=== PATIENT | female | born 1955 | race Caucasian/White ===

== ENCOUNTER → 2018-05-06 10:27 | Outpatient (CLI) | payer OTHER, SELFPAY ==
[2018-05-06 11:32] LABS: Appearance Urine UA CLEAR; Bilirubin Urine UA 1+ (NEGATIVE); Color Urine UA YELLOW; Glucose Urine UA NEGATIVE (Normal); Ketones Urine UA NEGATIVE (NEGATIVE); Leukocyte Esterase Urine UA NEGATIVE (NEGATIVE); Nitrite Urine UA Negative (Negative); Occult Blood Urine UA NEGATIVE (Negative); Protein Urine UA NEGATIVE (Negative); Urobilinogen Urine UA 0.2 E.U./dL (0.2)
[2018-05-06 11:41] LABS: Add Manual Diff / Slide Review NO; Basophils Percent Auto 0.7 % (0-2); Eosinophils Percent Auto 1.3 % (2-4); Hemoglobin 13.6 g/dL (12.0-16.0); Mean Corpuscular HGB Conc 33.3 % (30-36); Mean Corpuscular Hemoglobin 34.5 PG (26-34); Mean Corpuscular Volume 103.6 fL (80-100); Neutrophils Absolute Auto 5100 /uL (3000-5900); Platelet Count 384 X10^3/uL (150-400); Red Blood Cell Count 3.95 X10^6/uL (4.0-5.2)
[2018-05-06 11:43] LABS: Ictotest Urine Negative (Negative)
[2018-05-06 11:54] LABS: Alanine Aminotransferase 30 IU/L (9-52); Albumin 4.4 g/dL (3.5-5.0); Albumin Globulin Ratio 1.8 (1.0-2.8); Alkaline Phosphatase 99 U/L (38-126); Aspartate Aminotransferase 26 IU/L (14-36); Bilirubin Total 0.8 mg/dL (0.2-1.3); Blood Urea Nitrogen 14 mg/dL (7-17); Calcium 9.5 mg/dL (8.4-10.2); Carbon Dioxide 26 mmol/L (22-32); Chloride 106 mmol/L (98-107); Cholesterol 199 mg/dL (140-199); Estimated Glomerular Filt Rate > 60.0 mL/min (>60); Globulin 2.4 g/dL (1.7-4.1); Glucose 95 mg/dL (80-110); HDL Cholesterol 77 mg/dL (40-60); HEMOLYSIS < 15 (0-50); LDL Cholesterol Calculated 89 mg/dL (<100); Potassium 5.3 mmol/L (3.4-5.1); Sodium 142 mmol/L (137-145); Total Protein 6.8 g/dL (6.3-8.2); Triglycerides 164 mg/dL (35-150)
[2018-05-06 12:20] LABS: Vitamin D 25 Hydroxy (D3) 26.1 ng/mL (30.0-100.0)
[2018-05-06 12:41] LABS: Vitamin B12 382 pg/mL (239-931)
== END ==
PROVIDERS: PCP Family Medicine; Visit Provider Family Medicine
DX: Z51.81 Encounter for therapeutic drug level monitoring (principal); Z98.84 Bariatric surgery status
CPT/HCPCS: 36415; 80053; 80061; 81003; 82306; 82607; 84443; 85025

== ENCOUNTER → 2018-09-03 11:06 | Outpatient (CLI) | payer OTHER, SELFPAY ==
--- NOTE | 2018-09-03 11:08 | DI.RAD.S_ITS ---
PROCEDURE: XR HIP W PEL IF DONE LT MIN 4V INDICATIONS: bilateral hip pain TECHNIQUE: AP pelvis with lateral view(s) of left and right hip(s). COMPARISON: None. FINDINGS: Bones: No fractures or dislocations. Pelvic ring appears intact. There is a 1 cm sclerotic focus projecting to the left iliac bone. There is moderate right and mild left hip joint degeneration. Mild symmetric sacroiliac joint degeneration. No sacroiliac joint ankylosis. Pseudoarthrosis of the enlarged left L5 spinous process with sacrum. Soft tissues: The visualized bowel gas pattern is normal. No suspicious soft tissue calcifications. IMPRESSION: 1. Degenerative joint disease in the hips bilaterally, moderate on the right and mild on the left. 2. Mild symmetric sacroiliac joint degeneration. 3. Pseudoarthrosis of the left transverse process and sacrum. Dictated by: Jenna June M.D. on 09/03/2018 at 12:58 Approved by: Jenna June M.D. on 09/03/2018 at 13:01
[2018-09-03 11:57] LABS: Appearance Urine UA CLEAR; Bilirubin Urine UA 3+ (NEGATIVE); Color Urine UA YELLOW; Glucose Urine UA NEGATIVE (Normal); Ketones Urine UA NEGATIVE (NEGATIVE); Leukocyte Esterase Urine UA NEGATIVE (NEGATIVE); Nitrite Urine UA NEGATIVE (Negative); Occult Blood Urine UA NEGATIVE (Negative); Protein Urine UA NEGATIVE (Negative); Urobilinogen Urine UA 0.2 E.U./dL (0.2); pH Urine UA 5.5 (4.5-8.0)
[2018-09-03 12:00] LABS: Add Manual Diff / Slide Review NO; Basophils Percent Auto 0.4 % (0-2); Eosinophils Percent Auto 3.3 % (2-4); Hematocrit 40.3 % (36-46); Hemoglobin 13.4 g/dL (12.0-16.0); Lymphocytes Percent Auto 31.1 % (25-40); Mean Corpuscular HGB Conc 33.3 % (30-36); Mean Corpuscular Hemoglobin 33.9 PG (26-34); Mean Corpuscular Volume 101.7 fL (80-100); Monocytes Percent Auto 6.2 % (3-14); Neutrophils Absolute Auto 4300 /uL (3000-5900); Platelet Count 381 X10^3/uL (150-400); Red Blood Cell Count 3.96 X10^6/uL (4.0-5.2); Red Cell Distribution Width 13.1 % (11.6-14.8); White Blood Cell Count 7.3 X10^3/uL (4.5-11.0)
[2018-09-03 12:12] LABS: Ictotest Urine Positive (Negative)
[2018-09-03 13:21] LABS: Alanine Aminotransferase 32 IU/L (9-52); Albumin 4.2 g/dL (3.5-5.0); Albumin Globulin Ratio 1.7 (1.0-2.8); Alkaline Phosphatase 95 U/L (38-126); Aspartate Aminotransferase 21 IU/L (14-36); BUN Creatinine Ratio 23.3 (6-22); Bilirubin Total 0.4 mg/dL (0.2-1.3); Blood Urea Nitrogen 14 mg/dL (7-17); Calcium 9.5 mg/dL (8.4-10.2); Carbon Dioxide 24 mmol/L (22-32); Chloride 109 mmol/L (98-107); Cholesterol 166 mg/dL (140-199); Estimated Glomerular Filt Rate > 60.0 mL/min (>60); Globulin 2.5 g/dL (1.7-4.1); Glucose 88 mg/dL (80-110); HDL Cholesterol 51 mg/dL (40-60); HEMOLYSIS < 15 (0-50); LDL Cholesterol Calculated 82 mg/dL (<100); Sodium 145 mmol/L (137-145); Total Protein 6.7 g/dL (6.3-8.2); Triglycerides 165 mg/dL (35-150)
[2018-09-03 13:52] LABS: Thyroid Stimulating Hormone 0.77 uIU/mL (0.47-4.68)
== END ==
PROVIDERS: PCP Family Medicine; Visit Provider Family Medicine
DX: M25.552 Pain in left hip (principal); M25.551 Pain in right hip; M47.818 Spondylosis without myelopathy or radiculopathy, sacral and sacrococcygeal region; G47.00 Insomnia, unspecified; F32.9 Major depressive disorder, single episode, unspecified; F10.21 Alcohol dependence, in remission; Z51.81 Encounter for therapeutic drug level monitoring
CPT/HCPCS: 36415; 73522; 80053; 80061; 81003; 84443; 85025

== ENCOUNTER → 2019-01-18 12:37 | Outpatient (CLI) | payer OTHER, SELFPAY ==
--- NOTE | 2019-01-18 | DI.MG.S_ITS ---
BILATERAL DIGITAL SCREENING MAMMOGRAM 3D/2D WITH CAD: 01/18/2019 CLINICAL: Routine screening. Comparison is made to exams dated: 01/06/2018 mammogram, 10/24/2016 mammogram, and 10/23/2015 mammogram - [facility]. The tissue of both breasts is predominantly fatty. Current study was also evaluated with a Computer Aided Detection (CAD) system. No significant masses, calcifications, or other findings are seen in either breast. There has been no significant interval change. IMPRESSION: NEGATIVE There is no mammographic evidence of malignancy. A 1 year screening mammogram is recommended. This exam was interpreted at Station ID: [id number]. NOTE: For mammograms, a report in lay terms will be sent to the patient. Approximately 15% of breast malignancies will not be visualized mammographically. In the management of a palpable breast mass, a negative mammogram must not discourage biopsy of a clinically suspicious lesion. Electronically Signed By: Rosa cedillo/kylie:01/18/2019 15:20:34 letter sent: Normal Exam ACR BI-RADS Category 1: Negative [id number]
== END ==
PROVIDERS: PCP Family Medicine; Visit Provider Family Medicine
DX: Z12.31 Encounter for screening mammogram for malignant neoplasm of breast (principal)
CPT/HCPCS: 77063; 77067

== ENCOUNTER → 2019-11-12 16:34 | Outpatient (CLI) | payer MEDICARE, OTHER, SELFPAY ==
--- NOTE | 2019-11-12 16:35 | DI.MRI.S_ITS ---
PROCEDURE: MR LUMBAR SPINE WO CON INDICATIONS: RADICULOPATHY TECHNIQUE: Noncontrast sagittal T1 spin echo and T2 fast echo, sagittal STIR, axial T1 and T2 fast spin echo through the lumbar spine. In cases with scoliosis, additional coronal T2 fast spin echo may be performed. COMPARISON: None. FINDINGS: Image quality: Excellent. Alignment and Curvature: There is normal bony alignment. Bone Marrow: Marrow is of normal overall signal. No acute vertebral body compression fractures. Spinal Cord: Conus medullaris terminates at the L1 level. Visualized cord demonstrates normal signal and size. Paraspinous Soft Tissues: No paravertebral masses. T12-L1: The disc height and disc signal is relatively well-preserved. Mild to moderate disc bulge is seen. Mild facet there is mild left-sided and no significant right-sided neural foraminal narrowing seen. The central canal is widely patent. L1-L2: Moderate loss of disc height is seen. Loss of disc signal is seen. Bridging endplate osteophytes are seen. Moderate generalized disc bulge is seen. Mild facet joint hypertrophy is seen. Moderate bilateral neural foraminal narrowing is seen, left worse than right. Mild central canal narrowing is seen. L2-L3: The disc height and disk signal are well-preserved. Mild generalized disc bulge is seen. Mild facet joint hypertrophy is seen. Moderate bilateral neural foraminal narrowing is seen, left worse than right. Minimal central canal narrowing is seen. L3-L4: The disc height is well-preserved. Loss of disc signal is seen at this level. There is a focal annular fissure seen posteriorly. Mild generalized disc bulge is seen. Ztfv-jr-gkmqmndo bilateral neural foraminal narrowing is seen. No significant central canal narrowing is seen. L4-L5: Moderate to severe loss of disc height and disc signal are seen at this level. Moderate disc bulge is seen, which is eccentric to the right. Moderate bilateral neural foraminal narrowing is seen, right worse than left. Bridging endplate osteophytes are seen. No central canal narrowing is seen. L5-S1: Moderate loss of disc height is seen. Loss of disc signal is seen. Moderate disc bulge is seen, with a central/right disc extrusion, with an associated annular fissure. There is associated mass effect seen upon the regional nerve roots, although most prominently upon the transiting right S1 nerve root. There is moderate right-sided and mild left-sided facet hypertrophy seen. There is moderate right-sided and no significant left-sided foraminal narrowing seen. Moderate central canal narrowing is seen. 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 IMPRESSION: Lumbar spine degenerative changes are seen, which are most prominent inferiorly. At L5-S1, there is a central/right disc extrusion, with associated regional mass effect, including upon the transiting right S1 nerve root. Several levels of moderate neural foraminal narrowing can be seen. Dictated by: Silverio Lake M.D. on 11/15/2019 at 8:27 Approved by: Silverio Lake M.D. on 11/15/2019 at 8:33
== END ==
PROVIDERS: PCP Family Medicine; Referring Provider Internal Medicine; Visit Provider Internal Medicine
DX: M54.5 Low back pain (principal); M21.379 Foot drop, unspecified foot; M51.16 Intervertebral disc disorders with radiculopathy, lumbar region; M51.17 Intervertebral disc disorders with radiculopathy, lumbosacral region; M48.061 Spinal stenosis, lumbar region without neurogenic claudication; M48.07 Spinal stenosis, lumbosacral region
CPT/HCPCS: 72148

== ENCOUNTER → 2019-11-16 07:55 | Outpatient (CLI) | payer MEDICARE, OTHER, SELFPAY ==
[2019-11-16 08:40] LABS: Add Manual Diff / Slide Review NO; Basophils Absolute Auto 100 /uL (0-100); Basophils Percent Auto 1.1 % (0-2); Eosinophils Absolute Auto 100 /uL (0-450); Eosinophils Percent Auto 1.4 % (2-4); Hematocrit 41.3 % (36-46); Hemoglobin 14.1 g/dL (12.0-16.0); Lymphocytes Absolute Auto 2300 /uL (1100-4500); Lymphocytes Percent Auto 32.8 % (25-40); Mean Corpuscular HGB Conc 34.1 % (30-36); Mean Corpuscular Hemoglobin 33.4 PG (26-34); Monocytes Absolute Auto 500 /uL (0-900); Monocytes Percent Auto 6.6 % (3-14); Neutrophils Absolute Auto 4000 /uL (1500-7000); Neutrophils Percent Auto 58.1 % (50-75); Platelet Count 360 X10^3/uL (150-400); Red Blood Cell Count 4.21 X10^6/uL (4.0-5.2); Red Cell Distribution Width 12.3 % (11.6-14.8); White Blood Cell Count 6.9 X10^3/uL (4.5-11.0)
[2019-11-16 08:49] LABS: Alanine Aminotransferase 18 IU/L (<35); Albumin 4.2 g/dL (3.5-5.0); Albumin Globulin Ratio 1.4 (1.0-2.8); Alkaline Phosphatase 91 U/L (38-126); Aspartate Aminotransferase 22 IU/L (14-36); BUN Creatinine Ratio 16.7 (6-22); Bilirubin Total 0.6 mg/dL (0.2-1.3); Blood Urea Nitrogen 10 mg/dL (7-17); Calcium 9.5 mg/dL (8.4-10.2); Carbon Dioxide 27 mmol/L (22-32); Chloride 107 mmol/L (98-107); Cholesterol 192 mg/dL (140-199); Estimated Glomerular Filt Rate > 60.0 mL/min (>60); Globulin 2.9 g/dL (1.7-4.1); Glucose 107 mg/dL (80-110); HDL Cholesterol 48 mg/dL (40-60); HEMOLYSIS < 15 (0-50); LDL Cholesterol Calculated 121 mg/dL (<100); Potassium 4.4 mmol/L (3.4-5.1); Sodium 142 mmol/L (137-145); Total Protein 7.1 g/dL (6.3-8.2); Triglycerides 117 mg/dL (35-150)
[2019-11-16 09:04] LABS: HEMOLYSIS < 15 (0-50); Iron 110 ug/dL (37-170)
[2019-11-16 09:16] LABS: Percent Iron Saturation 32 % (15-50); Total Iron Binding Capacity 349 ug/dL (265-497); Transferrin 270 mg/dL (206-381)
[2019-11-16 09:20] LABS: Ferritin 18 ng/mL (11-264)
[2019-11-16 09:22] LABS: Vitamin D 25 Hydroxy (D3) 28.9 ng/mL (30.0-100.0)
[2019-11-16 09:37] LABS: TSH w/ Reflex to FT4 1.77 uIU/mL (0.47-4.68)
[2019-11-16 09:51] LABS: Folate > 20.0 ng/mL (2.76-20.0); Vitamin B12 345 pg/mL (239-931)
== END ==
PROVIDERS: PCP Internal Medicine; Referring Provider Internal Medicine; Visit Provider Internal Medicine
DX: I10 Essential (primary) hypertension (principal); F41.1 Generalized anxiety disorder; K21.9 Gastro-esophageal reflux disease without esophagitis; Z98.84 Bariatric surgery status; R79.89 Other specified abnormal findings of blood chemistry
CPT/HCPCS: 36415; 80053; 80061; 82306; 82607; 82728; 82746; 83540; 83550; 84443; 85025

== ENCOUNTER → 2019-12-01 12:33 | Outpatient (CLI) | payer MEDICARE, OTHER, SELFPAY ==
[2019-12-01 13:05] LABS: Add Manual Diff / Slide Review NO; Basophils Absolute Auto 100 /uL (0-100); Basophils Percent Auto 0.5 % (0-2); Eosinophils Absolute Auto 100 /uL (0-450); Eosinophils Percent Auto 1.4 % (2-4); Hematocrit 42.2 % (36-46); Hemoglobin 14.3 g/dL (12.0-16.0); Lymphocytes Absolute Auto 2400 /uL (1100-4500); Lymphocytes Percent Auto 24.4 % (25-40); Mean Corpuscular HGB Conc 33.9 % (30-36); Mean Corpuscular Hemoglobin 33.2 PG (26-34); Mean Corpuscular Volume 98.1 fL (80-100); Monocytes Absolute Auto 500 /uL (0-900); Monocytes Percent Auto 5.1 % (3-14); Neutrophils Absolute Auto 6800 /uL (1500-7000); Neutrophils Percent Auto 68.6 % (50-75); Platelet Count 380 X10^3/uL (150-400); Red Blood Cell Count 4.31 X10^6/uL (4.0-5.2); Red Cell Distribution Width 12.4 % (11.6-14.8); White Blood Cell Count 9.8 X10^3/uL (4.5-11.0)
[2019-12-01 13:26] LABS: BUN Creatinine Ratio 15.7 (6-22); Blood Urea Nitrogen 11 mg/dL (7-17); Calcium 9.9 mg/dL (8.4-10.2); Carbon Dioxide 26 mmol/L (22-32); Chloride 106 mmol/L (98-107); Estimated Glomerular Filt Rate > 60.0 mL/min (>60); Glucose 109 mg/dL (80-110); HEMOLYSIS < 15 (0-50); Potassium 4.4 mmol/L (3.4-5.1); Sodium 142 mmol/L (137-145)
[2019-12-01 13:29] LABS: Hemoglobin A1C% w Est Avg Glu 5.3 % (4.0-6.0)
== END ==
PROVIDERS: PCP Internal Medicine; Referring Provider Orthopaedic Surgery Adult Reconstructive Orthopaedic Surgery; Visit Provider Orthopaedic Surgery Adult Reconstructive Orthopaedic Surgery
DX: Z01.818 Encounter for other preprocedural examination (principal); Z01.812 Encounter for preprocedural laboratory examination; R73.9 Hyperglycemia, unspecified
CPT/HCPCS: 36415; 80048; 83036; 85025; 93005; 93010

== ENCOUNTER → 2020-03-09 12:38 | Outpatient (CLI) | payer MEDICARE, OTHER, SELFPAY ==
--- NOTE | 2020-03-09 | DI.MG.S_ITS ---
BILATERAL DIGITAL SCREENING MAMMOGRAM 3D/2D WITH CAD: 03/09/2020 CLINICAL: Routine screening. Comparison is made to exams dated: 01/18/2019 mammogram, 01/06/2018 mammogram, and 10/24/2016 mammogram - [facility]. There are scattered fibroglandular elements in both breasts. Current study was also evaluated with a Computer Aided Detection (CAD) system. No significant masses, calcifications, or other findings are seen in either breast. There has been no significant interval change. IMPRESSION: NEGATIVE There is no mammographic evidence of malignancy. A 1 year screening mammogram is recommended. This exam was interpreted at Station ID: [id number]. NOTE: For mammograms, a report in lay terms will be sent to the patient. Approximately 15% of breast malignancies will not be visualized mammographically. In the management of a palpable breast mass, a negative mammogram must not discourage biopsy of a clinically suspicious lesion. Electronically Signed By: Shan cano/kylie:03/09/2020 13:17:40 letter sent: Normal Exam ACR BI-RADS Category 1: Negative [id number]
== END ==
PROVIDERS: PCP Internal Medicine; Referring Provider Internal Medicine; Visit Provider Internal Medicine
DX: Z12.31 Encounter for screening mammogram for malignant neoplasm of breast (principal)
CPT/HCPCS: 77063; 77067

== ENCOUNTER 2020-10-31 12:00 | Observation (INO) | payer MEDICARE, OTHER, SELFPAY ==
[2020-10-31] VITALS (16 sets, daily range): BP systolic 145–194; BP diastolic 75–105; PULSE 75–106; RESP 9–55; TEMP 36.7–36.8; O2SAT 95–99; BMI 30.2
--- NOTE | 2020-10-31 12:24 | ED.GENADULT ---
HPI - General Adult General Chief complaint: Neuro Symptoms/Deficit Stated complaint: migraine/stroke Time Seen by Provider: 10/31/20 12:23 Source: patient Mode of arrival: Ambulatory Limitations: no limitations History of Present Illness HPI narrative: 65-year-old female with a history of migraines who states she has not had a migraine in quite some time who states that a couple days ago she started having a headache which she thought was going to be 1 of her typical migraines. She tried some home medications without any improvement. The then yesterday she started having which she describes as word-finding issues. She states the symptoms have been consistent since yesterday. No nausea or vomiting. Has not had anything like with the word-finding issues in the past. Related Data Home Medications Medication Instructions Recorded Confirmed kpygltzl-rjd-jvzlb ac 400 1 tab PO DAILY tab 05/05/19 10/31/20 mcg-calcium carb 500 mg-vit K1 20 mcg tablet omeprazole 20 mg PO BID 12/09/19 10/31/20 zolpidem 5 mg PO BEDTIME PRN 10/31/20 10/31/20 Allergies Allergy/AdvReac Type Severity Reaction Status Date / Time adhesive tape Allergy Severe Itching Verified 10/31/20 12:24 w/prolonged use morphine [MORPHINE] Allergy Mild Itching-pt Verified 10/31/20 12:24 states can take if needed erythromycin base AdvReac Severe Stomach Verified 10/31/20 12:24 [ERYTHROMYCIN BASE] cramps Review of Systems Constitutional Constitutional: Denies fatigue, Denies fever(s), Denies frequent falls and Reports headache(s) Eyes Eyes: Denies change in vision ENT Ears, Nose, Mouth, and Throat: Denies change in voice, Denies vertigo, Denies dizziness, Reports headache(s), Denies hoarseness, Denies disequilibrium, Denies sinus pain and Denies sore throat Cardiovascular Cardiovascular: Denies chest pain and Denies dyspnea Respiratory Respiratory: Denies dyspnea Gastrointestinal Gastrointestinal: Denies abdominal pain, Denies nausea and Denies vomiting Genitourinary Genitourinary: Denies dysuria Genitourinary: Denies dysuria Musculoskeletal Musculoskeletal: Denies arthralgias and Denies myalgias Integumentary/Breasts Skin/Breast: Denies lesions and Denies rash Neurologic Neurologic: Denies abnormal movements, Reports abnormal speech, Denies confusion, Denies vertigo, Denies dizziness, Denies frequent falls, Reports headache(s) and Denies disequilibrium Psychiatric Psychiatric: Denies confusion Endocrine Endocrine: Denies fatigue Hematologic/Lymphatic Hematologic/Lymphatic: Denies easy bleeding and Denies easy bruising Allergic/Immunologic Allergic/Immunologic: Denies urticaria Patient History Medical History Ankle pain (2015) Anxiety Chickenpox (1957) Colon polyps (2009) Depression Eating disorder Fractures GERD (gastroesophageal reflux disease) (2000) Heavy menstrual period (1979) Hemorrhoids (1980) Measles (1957) Mumps (1958) Numbness and tingling Painful menstrual periods PTSD (post-traumatic stress disorder) (2014) Seasonal allergies Substance abuse (2015) Surgical History (Updated 12/09/19 @ 09:17 by Catherine Loaiza RN) History of back surgery (1989) History of Vaughn-en-Y gastric bypass (2008) History of surgery on arm (~2008) History of tonsillectomy and adenoidectomy (1959) Hx of cholecystectomy (~2012) Hx of hysterectomy (1981) Hx of knee surgery (2015) Hx of varicose veins (~1994) S/P epidural steroid injection (12/02/19) Family History (Updated 05/04/18 @ 14:42 by Deysi Serrano LPN) Father Heart failure Hypertension Hyperlipidemia Mental health problem Substance abuse Depression Mother PAD (peripheral artery disease) Alzheimer's disease Hypertension Hyperlipidemia Mental health problem Osteoporosis Brother No problems noted. Grandfather Heart disease Grandmother Depression Grandfather Depression Grandmother Stroke Family/Other Depression ADHD (attention deficit hyperactivity disorder) Aspergers' syndrome Family/Other Anxiety Social History household members: spouse Smoking Status: Former smoker Tobacco: How many years used: 25 alcohol intake: former Smoking Status: Former smoker Substance Use Type: does not use Exam Initial Vital Signs Initial Vital Signs: Vital Signs Pulse Rate 106 H 10/31/20 12:18 Pulse Oximetry 98 10/31/20 12:18 Const General: cooperative and healthy appearing Limitations: mental status not altered HENMT Head: normal to inspection and normocephalic Eyes Pupils: PERRL EOM: EOM intact bilaterally Resp Effort & Inspection: normal respiratory effort Auscultation: clear to auscultation bilaterally Cardio Rate: regular rate Rhythm: regular rhythm GI Inspection: non-distended Palpation: soft Skin Lesions: no lesions Rashes: no rashes Neuro General: patient alert, patient awake and patient oriented x3 Cranial Nerves: CN's II-XI intact bilaterally Cognition: normal cognition Speech: speech normal Gait: normal gait Sensory Exam: no sensory deficits noted Coordination: ktkqld-kt-lxze test normal Extrem General: normal to inspection and capillary refill normal Psych Appearance: grossly normal and well kempt Scores GCS Radha coma scale eye opening: Spontaneous [place] coma scale verbal response: Orientated [place] coma scale motor response: Obey commands [place] coma scale total score: 15 NIH Stroke Scale Level of Conciousness: Alert, keenly responsive Ask month/age: Answers both questions correctly. Open/close eyes, close hand: Performs both tasks correctly Best gaze horizontal: Normal Visual ragland: No visual loss Facial palsy: Normal symetrical movement Left arm drift: No drift for full 10 sec Right arm drift: No drift for full 10 sec Left leg drift: Drifts down, not to bed Right leg drift: No drift for full 5 sec Limb ataxia: Absent Sensory on face/arms/legs: Normal, no sensory loss Best language: No aphasia, normal Dysarthria: Normal Extinction or inattention: No abnormality Total NIH Stroke scale score: 1 Course Orders Ordered: ED Orders 10/31/20 12:24 CT head/brain wo con Stat 10/31/20 12:25 EKG-12 Lead Stat 10/31/20 12:40 Complete Blood Count AUTO DIFF Stat Comprehensive Metabolic Panel Stat Ethanol (ETOH) Stat Lipase Stat Partial Thromboplastin Time Stat Prothrombin Time INR Stat Salicylate Stat Thyroid Stimulating Hormone Stat Troponin & CK Cardiac Panel Stat 10/31/20 12:56 COVID19 Stat Acetaminophen (Acetaminophen 325 Mg Tablet) 650 mg PO Q6HR PRN PRN Reason: Fever/Mild Pain (1-3) Last Admin: 10/31/20 18:02 Dose: 650 mg Documented by: GPEREZ Artificial Tears (Polyvinyl Alcohol Drops) 1 drops EYE-BOTH PRN PRN PRN Reason: Dry Eye(s) Aspirin (Aspirin Ec 81 Mg Tablet) 81 mg PO DAILY MAXIMINO Atorvastatin Calcium (Atorvastatin 20 Mg Tablet) 20 mg PO BEDTIME MAXIMINO Enoxaparin Sodium (Enoxaparin 40 Mg/0.4 Ml Syringe) 40 mg SUBCUT DAILY [facility] Magnesium Hydroxide (Magnesium Hydroxide 30 Ml Udc) 30 ml PO DAILY PRN PRN Reason: Constipation Naloxone HCl (Naloxone 0.4 Mg/Ml Vial) 0.2 mg IV Q2MIN PRN PRN Reason: Opiate Reversal Ondansetron HCl (Ondansetron 4 Mg Odt) 4 mg PO Q8HR PRN PRN Reason: Nausea And Vomiting Pantoprazole Sodium (Pantoprazole 20 Mg Tablet) 20 mg PO BID MAXIMINO Zolpidem Tartrate (Zolpidem 5 Mg Tablet) 5 mg PO BEDTIME PRN PRN Reason: Insomnia Discontinued Medications Aspirin (Aspirin 81 Mg Chew Tab) 324 mg PO NOW ONE Stop: 10/31/20 13:55 Last Admin: 10/31/20 16:31 Dose: Not Given Documented by: DELBERT Vital Signs Vital signs: Vital Signs - 8 hr 10/31/20 12:18 10/31/20 12:19 10/31/20 12:20 Temperature 98.0 F Pulse Rate 106 H 98 H 95 H Respiratory Rate 16 Blood Pressure 194/97 H 194/97 H Pulse Oximetry 98 99 99 10/31/20 12:31 10/31/20 12:46 10/31/20 13:00 Temperature Pulse Rate 82 80 77 Respiratory Rate 15 12 Blood Pressure 145/75 H 150/79 H Pulse Oximetry 96 95 96 10/31/20 13:15 10/31/20 13:30 10/31/20 13:31 Temperature Pulse Rate 75 102 H 100 H Respiratory Rate 11 L 51 H 55 H Blood Pressure 145/77 H 185/105 H Pulse Oximetry 97 96 97 10/31/20 13:44 10/31/20 13:46 10/31/20 13:49 Temperature Pulse Rate 84 92 H 82 Respiratory Rate 28 H 21 9 L Blood Pressure 168/87 H 182/99 H 161/85 H Pulse Oximetry 97 98 98 10/31/20 14:00 Temperature Pulse Rate 80 Respiratory Rate 12 Blood Pressure 154/77 H Pulse Oximetry 96 Medical Decision Making Lab Data Lab results reviewed: Yes I reviewed the patient's lab results. Result diagrams: 10/31/20 12:40 10/31/20 12:40 Labs: Lab Results 10/31/20 10/31/20 10/31/20 Range/Units 12:40 12:40 12:40 WBC 5.7 (4.5-11.0) X10^3/uL RBC 3.61 L (4.0-5.2) X10^6/uL Hgb 12.8 (12.0-16.0) g/dL Hct 37.3 (36-46) % MCV 103.2 H (80-100) fL MCH 35.3 H (26-34) PG MCHC 34.2 (30-36) % RDW 13.6 (11.6-14.8) % Plt Count 318 (150-400) X10^3/uL Neut % (Auto) 62.4 (50-75) % Lymph % (Auto) 27.0 (25-40) % [place] % (Auto) 7.7 (3-14) % Eos % (Auto) 2.1 (2-4) % Baso % (Auto) 0.8 (0-2) % Neut # (Auto) 3600 (3164-2625) /uL Lymph # (Auto) 1500 (1239-8229) /uL [place] # (Auto) 400 (0-900) /uL Eos # (Auto) 100 (0-450) /uL Baso # (Auto) 0 (0-100) /uL ESR (0-20) MM/HR PT 11.1 (10.1-12.7) SECONDS INR 1.0 (0.9-1.3) APTT 30 (26.4-36.2) SECONDS Sodium 140 (137-145) mmol/L Potassium 3.5 (3.4-5.1) mmol/L Chloride 110 H (98-107) mmol/L Carbon Dioxide 24 (22-32) mmol/L BUN 10 (7-17) mg/dL Creatinine 0.58 (0.52-1.04) mg/dL Estimated GFR > 60.0 (>60) mL/min BUN/Creatinine Ratio 17.2 (6-22) Glucose 146 H (80-110) mg/dL Calcium 9.1 (8.4-10.2) mg/dL Total Bilirubin 0.3 (0.2-1.3) mg/dL AST 25 (14-36) IU/L ALT 17 (<35) IU/L Alkaline Phosphatase 69 (38-126) U/L Total Creatine Kinase 90 (30-135) U/L CK-MB (CK-2) TNP CK-MB (CK-2) Rel Index TNP Troponin I 0.013 (0.01-0.034) ng/mL C-Reactive Protein (<1.0) mg/dL Total Protein 6.7 (6.3-8.2) g/dL Albumin 4.0 (3.5-5.0) g/dL Globulin 2.7 (1.7-4.1) g/dL Albumin/Globulin Ratio 1.5 (1.0-2.8) Triglycerides (35-150) mg/dL Cholesterol (140-199) mg/dL LDL Cholesterol, Calc (<100) mg/dL HDL Cholesterol (40-60) mg/dL Lipase 146 (23-300) U/L TSH (0.47-4.68) uIU/mL Salicylates < 1.0 (<20) mg/dL Ethyl Alcohol < 10 ( - 10) mg/dL SARS-CoV-2 (PCR) (Negative) 10/31/20 10/31/20 10/31/20 Range/Units 12:40 12:40 12:40 WBC (4.5-11.0) X10^3/uL RBC (4.0-5.2) X10^6/uL Hgb (12.0-16.0) g/dL Hct (36-46) % MCV (80-100) fL MCH (26-34) PG MCHC (30-36) % RDW (11.6-14.8) % Plt Count (150-400) X10^3/uL Neut % (Auto) (50-75) % Lymph % (Auto) (25-40) % [place] % (Auto) (3-14) % Eos % (Auto) (2-4) % Baso % (Auto) (0-2) % Neut # (Auto) (7682-8924) /uL Lymph # (Auto) (6327-3608) /uL [place] # (Auto) (0-900) /uL Eos # (Auto) (0-450) /uL Baso # (Auto) (0-100) /uL ESR 11 (0-20) MM/HR PT (10.1-12.7) SECONDS INR (0.9-1.3) APTT (26.4-36.2) SECONDS Sodium (137-145) mmol/L Potassium (3.4-5.1) mmol/L Chloride (98-107) mmol/L Carbon Dioxide (22-32) mmol/L BUN (7-17) mg/dL Creatinine (0.52-1.04) mg/dL Estimated GFR (>60) mL/min BUN/Creatinine Ratio (6-22) Glucose (80-110) mg/dL Calcium (8.4-10.2) mg/dL Total Bilirubin (0.2-1.3) mg/dL AST (14-36) IU/L ALT (<35) IU/L Alkaline Phosphatase (38-126) U/L Total Creatine Kinase (30-135) U/L CK-MB (CK-2) CK-MB (CK-2) Rel Index Troponin I (0.01-0.034) ng/mL C-Reactive Protein (<1.0) mg/dL Total Protein (6.3-8.2) g/dL Albumin (3.5-5.0) g/dL Globulin (1.7-4.1) g/dL Albumin/Globulin Ratio (1.0-2.8) Triglycerides 142 (35-150) mg/dL Cholesterol 190 (140-199) mg/dL LDL Cholesterol, Calc 95 (<100) mg/dL HDL Cholesterol 67 H (40-60) mg/dL Lipase (23-300) U/L TSH 0.775 (0.47-4.68) uIU/mL Salicylates (<20) mg/dL Ethyl Alcohol ( - 10) mg/dL SARS-CoV-2 (PCR) (Negative) 10/31/20 10/31/20 Range/Units 12:40 12:56 WBC (4.5-11.0) X10^3/uL RBC (4.0-5.2) X10^6/uL Hgb (12.0-16.0) g/dL Hct (36-46) % MCV (80-100) fL MCH (26-34) PG MCHC (30-36) % RDW (11.6-14.8) % Plt Count (150-400) X10^3/uL Neut % (Auto) (50-75) % Lymph % (Auto) (25-40) % [place] % (Auto) (3-14) % Eos % (Auto) (2-4) % Baso % (Auto) (0-2) % Neut # (Auto) (9250-1353) /uL Lymph # (Auto) (1263-2310) /uL [place] # (Auto) (0-900) /uL Eos # (Auto) (0-450) /uL Baso # (Auto) (0-100) /uL ESR (0-20) MM/HR PT (10.1-12.7) SECONDS INR (0.9-1.3) APTT (26.4-36.2) SECONDS Sodium (137-145) mmol/L Potassium (3.4-5.1) mmol/L Chloride (98-107) mmol/L Carbon Dioxide (22-32) mmol/L BUN (7-17) mg/dL Creatinine (0.52-1.04) mg/dL Estimated GFR (>60) mL/min BUN/Creatinine Ratio (6-22) Glucose (80-110) mg/dL Calcium (8.4-10.2) mg/dL Total Bilirubin (0.2-1.3) mg/dL AST (14-36) IU/L ALT (<35) IU/L Alkaline Phosphatase (38-126) U/L Total Creatine Kinase (30-135) U/L CK-MB (CK-2) CK-MB (CK-2) Rel Index Troponin I (0.01-0.034) ng/mL C-Reactive Protein < 0.5 (<1.0) mg/dL Total Protein (6.3-8.2) g/dL Albumin (3.5-5.0) g/dL Globulin (1.7-4.1) g/dL Albumin/Globulin Ratio (1.0-2.8) Triglycerides (35-150) mg/dL Cholesterol (140-199) mg/dL LDL Cholesterol, Calc (<100) mg/dL HDL Cholesterol (40-60) mg/dL Lipase (23-300) U/L TSH (0.47-4.68) uIU/mL Salicylates (<20) mg/dL Ethyl Alcohol ( - 10) mg/dL SARS-CoV-2 (PCR) Negative (Negative) Point of Care Testing Glucose POC 167 Point of care testing: Point of Care Testing Glucose POC [address] scan - head: Radiologist's Impression: [address] [id number] Scan ReportSigned Patient: Yuly Brizuela AMR#: [id number]: 4Acct:[id number]/Sex: 65 / FDate of Service: 10/31/20Loc: EDAccession Number: [id number] Procedure: CT head/brain wo con Ordering Provider: Del Yi D.O. PROCEDURE: CT HEAD/BRAIN WO CON INDICATIONS: Dysphagia TECHNIQUE: Noncontrast 4.5 mm thick angled axial sections acquired from the foramen magnum to the vertex, with coronal and sagittal reformats. For radiation dose reduction, the following was used: automated exposure control, adjustment of mA and/or kV according to patient size. COMPARISON: None. FINDINGS: Image quality: Excellent. CSF spaces: Basal cisterns are patent. No extra-axial fluid collections. The ventricles are symmetric in size and shape. Brain: No intracranial bleeds or masses. Ill-defined hypodensity involving left posterior parietal occipital region with poor soto-white differentiation. There is cerebral volume loss for age, with resultant ventricular and sulcal prominence. There are periventricular and deep white matter chronic small vessel ischemic changes. There is intracranial internal carotid artery atherosclerosis. Skull and face: Calvarium and visualized facial bones appear intact, without suspicious lesions. Sinuses: Visualized sinuses and mastoids are clear. IMPRESSION: 1. Finding is concerning for acute to subacute infarction involving left posterior parietal occipital lobe. MRI of brain can be done for further evaluation of this region if indicated. 2. No evidence of acute intracranial bleed. No midline shift or significant mass effect. 3. Moderate periventricular and deep white matter chronic small vessel ischemic changes. Dictated by: Cory Hidalgo M.D. on 10/31/2020 at 11:42 Approved by: Cory Hidalgo M.D. on 10/31/2020 at 11:44 ECG Data Attestation: I personally reviewed and interpreted this ECG as follows: Prior ECG tracings: not available for review Interpretation: Sinus rhythm Ventricular rate is 72 Left axis deviation Inverted T-waves 1 to ABO V2 V3 V4 V5 V[address] T wave changes MDM Narrative Medical decision making narrative: Patient's head CT today his somewhat concerning about an acute/subacute stroke. This does fit with the patient's symptoms however she has had symptoms for the past couple days and is outside the window for tPA or catheter directed tPA. She was given an aspirin here in the emergency department. I discussed the case with Dr. Jones with Internal Medicine who will admit her for further evaluation and treatment. I did discuss the findings of the CT scan in the admission with the patient. She expressed understanding and agreement. Discharge Plan Departure Patient Disposition: Admitted As Inpatient Clinical Impression: Cerebrovascular accident Admit Date/Time: 10/31/20 14:01 Admit Provider: Chadwick Jones
[2020-10-31 12:51] LABS: Add Manual Diff / Slide Review NO; Basophils Absolute Auto 0 /uL (0-100); Basophils Percent Auto 0.8 % (0-2); Eosinophils Absolute Auto 100 /uL (0-450); Eosinophils Percent Auto 2.1 % (2-4); Hematocrit 37.3 % (36-46); Hemoglobin 12.8 g/dL (12.0-16.0); Lymphocytes Absolute Auto 1500 /uL (1100-4500); Mean Corpuscular HGB Conc 34.2 % (30-36); Mean Corpuscular Hemoglobin 35.3 PG (26-34); Mean Corpuscular Volume 103.2 fL (80-100); Monocytes Absolute Auto 400 /uL (0-900); Monocytes Percent Auto 7.7 % (3-14); Neutrophils Absolute Auto 3600 /uL (1500-7000); Neutrophils Percent Auto 62.4 % (50-75); Platelet Count 318 X10^3/uL (150-400); Red Blood Cell Count 3.61 X10^6/uL (4.0-5.2); Red Cell Distribution Width 13.6 % (11.6-14.8); White Blood Cell Count 5.7 X10^3/uL (4.5-11.0)
[2020-10-31 12:57] LABS: Prothrombin Time 11.1 SECONDS (10.1-12.7)
[2020-10-31 13:00] LABS: PTT Partial Thromboplastin Tim 30 SECONDS (26.4-36.2)
[2020-10-31 13:04] LABS: Alanine Aminotransferase 17 IU/L (<35); Albumin Globulin Ratio 1.5 (1.0-2.8); Alkaline Phosphatase 69 U/L (38-126); Aspartate Aminotransferase 25 IU/L (14-36); BUN Creatinine Ratio 17.2 (6-22); Bilirubin Total 0.3 mg/dL (0.2-1.3); Blood Urea Nitrogen 10 mg/dL (7-17); Calcium 9.1 mg/dL (8.4-10.2); Carbon Dioxide 24 mmol/L (22-32); Chloride 110 mmol/L (98-107); Creatine Kinase 90 U/L (30-135); Estimated Glomerular Filt Rate > 60.0 mL/min (>60); Ethanol (ETOH) < 10 mg/dL; Globulin 2.7 g/dL (1.7-4.1); Glucose 146 mg/dL (80-110); HEMOLYSIS < 15 (0-50); Lipase 146 U/L (23-300); Potassium 3.5 mmol/L (3.4-5.1); Salicylate < 1.0 mg/dL (<20); Sodium 140 mmol/L (137-145); Total Protein 6.7 g/dL (6.3-8.2)
[2020-10-31 13:14] LABS: Troponin I 0.013 ng/mL (0.01-0.034)
[2020-10-31 13:20] LABS: COVID19 -Nasal RAPID Negative (Negative)
[2020-10-31 13:40] LABS: Thyroid Stimulating Hormone 0.775 uIU/mL (0.47-4.68)
--- NOTE | 2020-10-31 14:54 | PC.NURSE ---
Day shift note: Patient admitted to room 221 from ED, ambulated. Alert, oriented, and pleasantly cooperative. Difficulty finding words and expressing self. Speech is clear, Alberto (son) at bedside agrees. C/O headache 6/10, generalized dull ache, no visual disturbance. Oriented to room, environment, and plan of care. Call light within reach. Placed on Tele on arrival. Jorge Dominguez at bedside providing supportive care.
--- NOTE | 2020-10-31 16:18 | DI.MRI.S_ITS ---
PROCEDURE: MR STROKE Pre- and post-contrast brain MRI, non-contrast brain MR angiogram, pre- and postcontrast neck MR angiogram INDICATIONS: acute CVA TECHNIQUE: Brain: Noncontrast axial T1 spin echo, axial T2 fast spin echo, sagittal and axial FLAIR, coronal T2 fast spin echo, axial gradient echo, axial diffusion and ADC through the brain. After the administration of contrast, axial 3D VIBE of the cranial vasculature and brain. Brain MRA: Non-contrast 3-D time of flight MR angiogram, with multiple onsnfnd-qbkjbwfwp-fhstrijvto (MIP) reformats performed. Neck MRA: Axial and sagittal TruFISP through the neck. Coronal dynamic MR angiogram during administration of contrast in the arterial and venous phases, with 3-dimenstional sqbnait-gzkcalhrp-cvaiihqkhn (MIP) reformats constructed from subtraction images. COMPARISON: [facility], CT, CT HEAD/BRAIN WO CON, 10/31/2020, 12:22. FINDINGS: Image quality: Excellent. BRAIN: CSF spaces: Ventricles are normal in size and shape. Basal cisterns are patent. No extra-axial fluid collections. Brain: No intracranial bleeds or mass effects. Aguirre-white matter interface is normal. Diffusion weighted images demonstrate hyperintensity within the left temporal parietal lobe with corresponding hypointense ADC signal. There is hyperintense T2/all cap FLAIR signal within this region. No evidence of superimposed hemorrhage. Brainstem appears normal. Normal intravascular flow voids are present. No abnormal intracranial enhancement. Skull and face: Calvarial marrow signal is normal. Orbits appear normal. Sinuses: Sinuses and mastoids are clear. BRAIN MR ANGIOGRAM: Anterior circulation: Intracranial internal carotid arteries are normal in size and enhancement. The flow within the paired anterior cerebral arteries is normal and symmetric. The flow within the middle cerebral arteries is normal and symmetric. The anterior communicating artery is seen. No stenoses, occlusions, or aneurysms. Posterior circulation: The posterior circulation demonstrates a right vertebral artery dominance. Basilar artery and posterior cerebral arteries demonstrate no areas of hemodynamically significant stenosis, vascular occlusion or aneurysmal dilation. Posterior communicating arteries are within normal limits. NECK MR ANGIOGRAM: The origins of the left and right common, internal and external carotid arteries demonstrate no areas of hemodynamically significant stenosis, vascular occlusion or aneurysmal dilation. Origins of the left and right vertebral arteries demonstrate no areas of hemodynamically significant stenosis, vascular occlusion or aneurysmal dilation. Bovine arch is incidentally noted, consistent with congenital variation. Limited, visualized portions of the subclavian vasculature are unremarkable. IMPRESSION: 1. Restricted diffusion within the left temporoparietal lobe consistent with acute/subacute ischemia. No superimposed hemorrhage. 2. No areas of hemodynamically significant stenosis, vascular occlusion or aneurysmal dilation within the neck vasculature. 3. No areas of hemodynamically significant stenosis, vascular occlusion or aneurysmal dilation within the posterior or anterior circulation. Dictated by: Hazel Dutton M.D. on 10/31/2020 at 17:50 Approved by: Hazel Dutton M.D. on 10/31/2020 at 17:54
--- NOTE | 2020-10-31 16:19 | DI.ECHO.S_ITS ---
[place] [facility]---------+ [facility] +---------+ : : [address] : : : : [id number] : : : : Phone: [phone] Echocardiogram Report + + :Name: OLIVIA TRAN Study Date: 11/01/2020 Height: 63 in : :[facility] ReadingLocation: Weight: 171 lb : : Gender: Female BSA: 1.8 m2 : :: 1955 Age: 65 yrs BP: 161/85 mmHg: :Reason For Study: CVA : :Ordering Physician: WILLIS, : :MARINA Performed By: Mandy Orellana : :Referring: MARINA PEDRO : + + Interpretation Summary Normal sinus rhythm. Normal LV size and wall thickness. There is subtle distal inferior and mid- inferoseptal hypokinesis. Otherwise normal wall motion. EF is 50-55%. There is dyssynchrony consistent with conduction system disease. Aortic sclerosis without stenosis. Mild MAC with moderate associated MR. No source of embolism identified. No agitated saline study done. If PFO is clinically suspected, consider doing a limited agitated saline study. Procedure: A two-dimensional transthoracic echocardiogram with color flow and Doppler was performed. The study quality was technically adequate. There is no prior echocardiogram noted for this patient. The patient was in sinus rhythm with heart rates between 64-77 bpm during the exam. Left Ventricle: The left ventricle is normal in size and wall thickness. The ejection fraction is estimated to be 60-65%. Right Ventricle: The right ventricle is normal in size and function. Atria: The left atrium is mildly dilated. Right atrial size is normal. There is no Doppler evidence for an interatrial shunt. Mitral Valve: There is mild mitral annular calcification. The mitral valve leaflets appear mildly thickened, but open well. There is mild to moderate mitral regurgitation. Aortic Valve: The aortic valve is trileaflet. The aortic valve is slightly calcified. The aortic valve opens well. There is no aortic valve stenosis. There is trace aortic regurgitation. Tricuspid Valve: The tricuspid valve is normal in structure and function. There is trace tricuspid regurgitation. The right ventricular systolic pressure is estimated to be at least 3 mmHg based on an estimated right atrial pressure of 3 mm Hg. Pulmonic Valve: The pulmonic valve leaflets are thin and pliable; valve motion is normal. There is mild pulmonic regurgitation. Great Vessels: The aortic root is normal size. The ascending aorta is mildly enlarged. The IVC is of normal diameter and collapses greater than 50% with a sniff. This suggests a low right atrial pressure of 3 mm Hg. Pericardium/ Pleura There is no pericardial effusion. There is no pleural effusion. MMode/2D Measurements & Calculations LVIDd: 4.7 cm LVOT diam: 2.0 cm LVIDs: 3.0 cm Ao root diam: 3.1 cm FS: 37.3 % asc Aorta Diam: 3.4 cm EPSS: 0.71 cm Ao Arch Diam (Prox Trans): 2.8 cm IVSd: 0.85 cm LVPWd: 0.95 cm LV spear. diameter/BSA (cm/m^2): 2.6 LV sys. diameter/BSA (cm/m^2): 1.6 LA A2 area: 23.3 cm2 RA long axis: 4.5 cm LA A4 area: 18.6 cm2 RA area: 13.1 cm2 LA length (vol): 5.2 cm RA vol: 32.5 ml LA vol: 71.1 ml RA : 18.0 ml/m2 LA vol index: 39.3 ml/m2 IVC diam: 1.1 cm RVD1 (basal): 3.8 cm TAPSE: 2.0 cm Doppler Measurements & Calculations Ao V2 max: 123.4 cm/sec LVOT Max Alessandro: 93.1 cm/sec Ao V2 mean: 85.2 cm/sec LV V1 max P.5 mmHg Ao max P.1 mmHg LV V1 VTI: 16.4 cm Ao mean P.3 mmHg SARA(I,D): 2.1 cm2 Ao V2 VTI: 23.4 cm SARA(V,D): 2.3 cm2 sev ratio: 0.70 SARA indexed to BSA (cm^2/m^2): 1.2 MV E max alessandro: 63.9 cm/sec PA V2 max: 59.8 cm/sec MV A max alessandro: 61.6 cm/sec PA V2 mean: 39.8 cm/sec MV E/A: 1.0 PA mean P.75 mmHg Med Peak E' Alessandro: 6.3 cm/sec PA pr(Accel): 29.3 mmHg E/E' med: 10.1 Lat Peak E' Alessandro: 8.3 cm/sec E/E' lat: 7.7 E/e' average: 8.9 MV dec time: 0.16 sec MR ERO: 0.18 cm2 MR PISA: 2.9 cm2 SV(LVOT): 49.1 ml MR flow rate: 107.0 cm3/sec MR PISA radius: 0.68 cm Electronically signed by: Pat Guerra M.D. on Reading Physician:11/01/2020 04:44 PM
[2020-10-31 16:40] LABS: Cholesterol 190 mg/dL (140-199); HDL Cholesterol 67 mg/dL (40-60); LDL Cholesterol Calculated 95 mg/dL (<100); Triglycerides 142 mg/dL (35-150)
--- NOTE | 2020-10-31 16:59 | P.HP_ITS ---
History of Present Illness History of Present Illness Date Patient Seen: 10/31/20 Time Patient Seen: 16:00 Date of Onset of Symptoms: 11/27/19 Chief complaint: migraine/stroke Narrative: Patient is a 65-year-old female with history premenopausal migraines with aura, history of gastric bypass surgery who drove herself to the emergency department due to ongoing headache and speech difficulties. 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 About 5 days ago, she started noticing headache and speech difficulties of sudden onset while staying in [place] where her h as been getting cancer treatment at [facility]. She had picked up some medications at pharmacy and was waiting to catch [employer] to take her back to the hotel room. As [employer] arrived patient developed a squeezing headache and found that she was not able to work her phone to verify she was catching the right ride. She states she had to show the [employer] bulk truck driver her bulk truck driver's license and he was able to get her to her hotel room. She also noticed her speech was quite garbled. Once at the hotel she could not figure out how to push the buttons to get on the elevator. Somehow she got to her room and fell asleep. The following morning she found that she had difficulty typing on the computer while on Facebook. These difficulties continued on an intermittent basis once he got back home a couple of days ago. Patient is in charge of her 's medications and tube feeds and found that she was able to perform these tasks at home. She decided to seek medical attention today and drove herself to the ER since headache and speech difficulties were not fully going away. She has not noticed any unilateral weakness, numbness or tingling and has not noticed loss of vision. She states the headache is much less severe than her migraines and she really has not had any migraines she she went into menopause. On ED evaluation, her initial BP was 190/97 but has been drifting down on its own. Her NIHSS score was 1 for left leg drift. EKG showed sinus rhythm, T-wave inversions in 1, 3, aVL and V2 to V6. EKG findings are new since her last EKG on 12/01/2019. Patient has not had any chest pain and her troponin was normal. Head CT showed acute to subacute infarction involving left posterior parietal occipital lobe. No bleed. Patient History Medical History Ankle pain (2015) Anxiety Chickenpox (1957) Colon polyps (2009) Depression Eating disorder Fractures GERD (gastroesophageal reflux disease) (2000) Heavy menstrual period (1979) Hemorrhoids (1980) Measles (1957) Mumps (1958) Numbness and tingling Painful menstrual periods PTSD (post-traumatic stress disorder) (2014) Seasonal allergies Substance abuse (2016) Surgical History (Updated 12/09/19 @ 09:17 by Catherine Loaiza RN) History of back surgery (1989) History of Vaughn-en-Y gastric bypass (2008) History of surgery on arm (~2008) History of tonsillectomy and adenoidectomy (1959) Hx of cholecystectomy (~2012) Hx of hysterectomy (1981) Hx of knee surgery (2015) Hx of varicose veins (~1994) S/P epidural steroid injection (12/02/19) Family & Social History Family History (Updated 05/04/18 @ 14:42 by Deysi Serrano LPN) Father Heart failure Hypertension Hyperlipidemia Mental health problem Substance abuse Depression Mother PAD (peripheral artery disease) Alzheimer's disease Hypertension Hyperlipidemia Mental health problem Osteoporosis Brother No problems noted. Grandfather Heart disease Grandmother Depression Grandfather Depression Grandmother Stroke Family/Other Depression ADHD (attention deficit hyperactivity disorder) Aspergers' syndrome Family/Other Anxiety Social History: household members spouse Safety & Behavioral: Feels Safe in Current Yes Environment Been Physically Hurt or No Threatened By a Person Tobacco & Substance use: Tobacco type cigarettes Smoking Status Former smoker alcohol intake former Substance Use Type does not use Meds Home Medications and Allergies Home Medications Medication Instructions Recorded Confirmed Type ouvelamj-zmk-vcwzq ac 400 1 tab PO DAILY tab 05/05/19 10/31/20 History mcg-calcium carb 500 mg-vit K1 20 mcg tablet omeprazole 20 mg PO BID 12/09/19 10/31/20 History zolpidem 5 mg PO BEDTIME 10/31/20 10/31/20 History Allergies Allergy/AdvReac Type Severity Reaction Status Date / Time adhesive tape Allergy Severe Itching Verified 10/31/20 12:24 w/prolonged use morphine [MORPHINE] Allergy Mild Itching-pt Verified 10/31/20 12:24 states can take if needed erythromycin base AdvReac Severe Stomach Verified 10/31/20 12:24 [ERYTHROMYCIN BASE] cramps Review of Systems Review of Systems ROS: Yes All systems reviewed with the patient and are negative except as otherwise documented Exam Vital Signs (past 8 hours): - 10/31/20 12:18 10/31/20 12:19 10/31/20 12:20 Temperature 98.0 F Pulse Rate 106 H 98 H 95 H Respiratory Rate 16 Blood Pressure 194/97 H 194/97 H Pulse Oximetry 98 99 99 10/31/20 12:31 10/31/20 12:46 10/31/20 13:00 Temperature Pulse Rate 82 80 77 Respiratory Rate 15 12 Blood Pressure 145/75 H 150/79 H Pulse Oximetry 96 95 96 10/31/20 13:15 10/31/20 13:30 10/31/20 13:31 Temperature Pulse Rate 75 102 H 100 H Respiratory Rate 11 L 51 H 55 H Blood Pressure 145/77 H 185/105 H Pulse Oximetry 97 96 97 10/31/20 13:44 10/31/20 13:46 10/31/20 13:49 Temperature Pulse Rate 84 92 H 82 Respiratory Rate 28 H 21 9 L Blood Pressure 168/87 H 182/99 H 161/85 H Pulse Oximetry 97 98 98 10/31/20 14:00 10/31/20 14:50 Temperature 98.3 F Pulse Rate 80 Respiratory Rate 12 15 Blood Pressure 154/77 H 169/87 H Pulse Oximetry 96 97 Oxygen Delivery Method Room Air Narrative Exam Narrative: General: Alert, pleasant and cooperative female in no acute distress HEENT: Nontraumatic, temporal artery 2+ bilaterally not thickened, face symmetric, pupils equal and reactive, EOMI, no dysphonia Neck: Carotid upstroke 2+ bilaterally without bruit, no lymphadenopathy Lungs: Clear to auscultation Heart: Normal S1 and S2, regular rate and rhythm, no murmur Abdomen: Soft, nontender, no HSM Extremities: No edema Neurological: Oriented x3, affect normal, speech clear but patient is exhibiting mild word-finding difficulties, no pronator drift, no leg weakness, finger to nose and heel to hugo intact, light touch sensation intact Objective Labs Result Diagrams: 10/31/20 12:40 10/31/20 12:40 Labs: Laboratory Results - last 24 hr 10/31/20 10/31/20 10/31/20 12:40 12:40 12:40 WBC 5.7 RBC 3.61 L Hgb 12.8 Hct 37.3 MCV 103.2 H MCH 35.3 H MCHC 34.2 RDW 13.6 Plt Count 318 Neut % (Auto) 62.4 Lymph % (Auto) 27.0 [place] % (Auto) 7.7 Eos % (Auto) 2.1 Baso % (Auto) 0.8 Neut # (Auto) 3600 Lymph # (Auto) 1500 [place] # (Auto) 400 Eos # (Auto) 100 Baso # (Auto) 0 PT 11.1 INR 1.0 APTT 30 Sodium 140 Potassium 3.5 Chloride 110 H Carbon Dioxide 24 BUN 10 Creatinine 0.58 Estimated GFR > 60.0 BUN/Creatinine Ratio 17.2 Glucose 146 H Calcium 9.1 Total Bilirubin 0.3 AST 25 ALT 17 Alkaline Phosphatase 69 Total Creatine Kinase 90 CK-MB (CK-2) TNP CK-MB (CK-2) Rel Index TNP Troponin I 0.013 Total Protein 6.7 Albumin 4.0 Globulin 2.7 Albumin/Globulin Ratio 1.5 Triglycerides Cholesterol LDL Cholesterol, Calc HDL Cholesterol Lipase 146 TSH Salicylates < 1.0 Ethyl Alcohol < 10 SARS-CoV-2 (PCR) 10/31/20 10/31/20 10/31/20 12:40 12:40 12:56 WBC RBC Hgb Hct MCV MCH MCHC RDW Plt Count Neut % (Auto) Lymph % (Auto) [place] % (Auto) Eos % (Auto) Baso % (Auto) Neut # (Auto) Lymph # (Auto) [place] # (Auto) Eos # (Auto) Baso # (Auto) PT INR APTT Sodium Potassium Chloride Carbon Dioxide BUN Creatinine Estimated GFR BUN/Creatinine Ratio Glucose Calcium Total Bilirubin AST ALT Alkaline Phosphatase Total Creatine Kinase CK-MB (CK-2) CK-MB (CK-2) Rel Index Troponin I Total Protein Albumin Globulin Albumin/Globulin Ratio Triglycerides 142 Cholesterol 190 LDL Cholesterol, Calc 95 HDL Cholesterol 67 H Lipase TSH 0.775 Salicylates Ethyl Alcohol SARS-CoV-2 (PCR) Negative Assessment & Plan Assessment & Plan narrative: 1. Acute left parietal-occipital CVA -patient with new headache, aphasia times 4-5 days -head CT showed left parietal occipital subacute infarction -lipid panel: Total 190, LDL 95, HDL 67, triglycerides 192 -admit to observation, telemetry, neuro check Q shift -allow permissive hypertension -brain MR stroke protocol -echo -chest x-ray -aspirin 325 mg x 1 in the ED, follow by 81 mg q.d. -atorvastatin 20 mg HS -consult ST, OT and PT -check CRP, ESR 2. 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 She has son who she states who is a high functioning Asperger's and his blind girlfriend who she feels are able to take care of him for next couple of days but not long-term.
--- NOTE | 2020-10-31 17:21 | DI.RAD.S_ITS ---
PROCEDURE: XR CHEST 1V INDICATIONS: CVA TECHNIQUE: One view of the chest was acquired. COMPARISON: None. FINDINGS: Surgical changes and devices: Cholecystectomy clips are seen. Lungs and pleura: Minimal streaky atelectasis can be seen at the lung bases, left worse than right. No pleural effusions or pneumothorax. Mediastinum: The cardiac contours are within normal limits. The aorta demonstrates calcification and tortuosity. Bones and chest wall: No suspicious bony lesions. Age-appropriate bony degenerative changes are seen. Overlying soft tissues appear unremarkable. IMPRESSION: No significant portable chest abnormality can be seen. Dictated by: Silverio Lake M.D. on 10/31/2020 at 16:49 Approved by: Silverio Lake M.D. on 10/31/2020 at 16:50
[2020-10-31] MEDS: ACETAMINOPHEN 325 MG TABLET 650 MG PO (18:02)
[2020-10-31 18:05] LABS: C-Reactive Protein Quant < 0.5 mg/dL (<1.0)
[2020-10-31 18:26] LABS: Erythrocyte Sedimentation Rate 11 MM/HR (0-20)
[2020-10-31] MEDS: ATORVASTATIN 20 MG TABLET PO (20:40)
[2020-10-31] MEDS: PANTOPRAZOLE 20 MG TABLET PO (20:41)
[2020-11-01] VITALS (7 sets, daily range): BP systolic 97–154; BP diastolic 54–91; PULSE 70–83; RESP 16–18; TEMP 36.2–36.6; O2SAT 95–97
[2020-11-01] MEDS: ZOLPIDEM 5 MG TABLET PO (00:03)
[2020-11-01] MEDS: ACETAMINOPHEN 325 MG TABLET 650 MG PO ×3 (00:03→08:59)
--- NOTE | 2020-11-01 04:29 | PM.EVENT ---
Event Note Date Patient Seen: 11/01/20 Time Patient Seen: 04:29 Event Note: Patient status change: Change in patient rhythm was identified telemetry monitoring the presentation of inferior ischemia with inverted T-waves leads II, III and AVF. Ordered a stat 12 lead EKG. The patient denies complaints chest pain or palpitations, shortness of breath or cough. She reports no neck or back pain. No epigastric or abdominal pain, no nausea or vomiting. She does complain of headache consistent with prior presentation and diagnosis of a left parietal stroke. The patient is assessed: General: Patient is awake and briskly responsive Chest: Symmetrical movement, breathing nonlabored. Lungs: Breath sounds are clear and equal. Abdomen: Nontender to palpation Neuro: AAO x3, briskly responsive, no difficulty with word finding, NIH score is 0. -review 12 lead EKG finding evidence of septal infarct and inferior ischemia not previously present on 12 lead EKG yesterday 10/31/2020 at 12:45 p.m. -ordered stat labs including cardiac panel, BMP, magnesium, PT/PTT. -the patient has already had aspirin 324 mg in the ER 1 admitted the prior afternoon's continuing aspirin 81 mg daily. Patient remains asymptomatic however also has a left parietal CVA on MRI which raises risk for anticoagulation. Will await lab results to contact Cardiology. Labs drawn at 4:30 a.m. are reported out as: total CK of 70 and troponin 0.017. 5:15 a.m.: Spoke with Dr. Balbuena Cardiology to review EKG findings noting deep T-wave inversion causing inferior anterior lateral aspects. Dr. Bautista believes EKG changes are related to HOMICIDE DETECTIVE injury however recommends continuing to follow troponin and recommended obtaining echocardiogram.
--- NOTE | 2020-11-01 04:32 | PC.NURSE ---
At approx 0340, hospitalist & ICU notified this RN of change in telemetry reading. Pt assessed, was just waking up as this RN entered the room, no apparent cardiovascular or respiratory distress. Pt denied any SOB, chest pain or heaviness, dizziness or nausea. Endorsed mild headache, not new to pt, consistent through stay. Vitals taken BP 118/72, HR 70, SPO2 95-97% RA, RR 16, & T 97.8 F temporal. Hospitalist ordered stat EKG & labs. Will continue to monitor.
[2020-11-01 04:43] LABS: INR 0.9 (0.9-1.3); Prothrombin Time 10.5 SECONDS (10.1-12.7)
[2020-11-01 04:44] LABS: BUN Creatinine Ratio 20.4 (6-22); Blood Urea Nitrogen 11 mg/dL (7-17); Calcium 8.7 mg/dL (8.4-10.2); Carbon Dioxide 27 mmol/L (22-32); Chloride 111 mmol/L (98-107); Creatine Kinase 70 U/L (30-135); Estimated Glomerular Filt Rate > 60.0 mL/min (>60); Glucose 99 mg/dL (80-110); HEMOLYSIS < 15 (0-50); Magnesium 1.9 mg/dL (1.6-2.3); Potassium 4.2 mmol/L (3.4-5.1); Sodium 141 mmol/L (137-145)
[2020-11-01 04:45] LABS: PTT Partial Thromboplastin Tim 19 SECONDS (26.4-36.2)
[2020-11-01 04:56] LABS: Troponin I 0.017 ng/mL (0.01-0.034)
--- NOTE | 2020-11-01 08:35 | ST.IPSLE ---
Visit Care Team Role Provider Type Del Yi DO Emergency Provider Physician Referring Provider Specialty: Emergency Medicine Address: [address] [place] [address], [id number] Email: [email or web address] Chadwick Jones MD Admit Provider Physician Attending Provider Specialty: Internal Medicine Address: [address] [place] [address], [id number] Email: [email or web address] Current Diagnoses Cerebral infarction, unspecified (10/31/20) Past Medical History (Last Reviewed 10/31/20 @ 12:53 by eDl Yi DO) Ankle pain (Medical 2015) Anxiety (Medical) Chickenpox (Medical 1957) Colon polyps (Medical 2009) Depression (Medical) whole life Eating disorder (Medical) My whole life Fractures (Medical) [id number] GERD (gastroesophageal reflux disease) (Medical 2000) Heavy menstrual period (Medical 1979) Hemorrhoids (Medical 1980) Measles (Medical 1957) Mumps (Medical 1958) Numbness and tingling (Medical) From waist down, r/t pinched nerves from hip, herniated lumbar disc Painful menstrual periods (Medical) my entire life PTSD (post-traumatic stress disorder) (Medical 2014) Seasonal allergies (Medical) Substance abuse (Medical 2015) [id number] Speech-Language Pathology Speech/Language Eval PATIENT SERVICE REP Adult Cognitive Linguistic Eval Start: 11/01/20 10:22 Freq: Status: Active Protocol: Document 11/01/20 10:23 [facility] (Rec: 11/01/20 10:55 [facility] [id number]) Adult Cognitive Linguistic Evaluation Session Time Visit Start Time 08:05 Visit Stop Time 08:33 Total Visit Minutes [address] Jones Reason for Referral CVA Setting Assessment Location Acute Care Visit Type Note Type Initial evaluation Next Note Type Next Note Type Treatment Note Patient Information Identification Type Name Medical History Patient drove herself to the ER for ongoing headache and speech difficulty. MRI revealed restricted diffusion within the left temporoparietal lobe consistent with acute/subacute ischemia. 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 She was talking on her cell phone but ended the call when she saw me at the door. She was alert, oriented and pleasant. Patient complained of headache. No others present in the room aside from observing student PATIENT SERVICE REP. Mental Status Alert,Responsive,Cooperative Assessment Oral Motor Examination Completed Yes Results No abnormal findings on limited oral [facility] exam. Informal Assessment Receptive Language Normal Yes Expressive Language Normal No Expressive Language Impairment(s) Expression of complex thoughts /ideas Pragmatic Language Normal Yes Speech Normal No Speech Impairment(s) Imprecise articulation Cognition Normal Did not assess Findings/Results Language Function Mildly impaired Findings Patient is experiencing mild impairments in speech/ expressive language. Further assessment is warranted for differential diagnosis of mild anomic aphasia and acquired apraxia of speech. She describes her impairments as intermittent difficulty coming up with words. She gave an example of being unable to find the word privacy in conversation with her a day ago. She was able to complete all receptive language tasks without difficulty. Characteristics observed in conversation included: intermittent word finding pauses, word finding failures (once during the evaluation), and occasional abandoned utterances. Patient experienced occasional errors of substitution such as saying see for say and difficulty pronouncing identify during reading. She has excellent insight into her impairments and is implementing the strategies of circumlocution and substitution independently and effectively. Overall, minor impairment is evident, but patient is able to discuss all topics and communicate complex ideas effectively with use of strategies. PATIENT SERVICE REP provided patient with written information on aphasia and apraxia as well as a list of word finding strategies. Discussed principles of neuroplasticity and encouraged rest given patient's headache and her busy schedule taking care of her who is receiving cancer treatment in [place]. Cognitive Communication Deficits Self-awareness of Cognitive- Situational awareness ( Communication Deficits recognition of problem in context;in real time) Impact on Functioning Activity Limits/Particip.Rest. Mild: General Tasks and Demands Interpersonal Interactions Safety Risks Mild: Traveling Alone in Community Prognosis Prognosis Good Based on Other (comment) Comment insight into deficits, high prior level of functioning Plan of Care Speech-Language Treatment Yes Patient/Caregiver Education Described results of evaluation,Patient expressed understanding of evaluation Short Term Goals Oral motor/motor speech assessment to aid in differential diagnosis. Patient will demonstrate ongoing effective use of strategies in order to communicate all thoughts/ideas . Discharge Recommendations Home,Outpatient therapy
[2020-11-01] MEDS: ENOXAPARIN 40 MG/0.4 ML SYRINGE SUBCUT (08:58)
[2020-11-01] MEDS: PANTOPRAZOLE 20 MG TABLET PO (08:59)
[2020-11-01] MEDS: ASPIRIN EC 81 MG TABLET PO (08:59)
--- NOTE | 2020-11-01 09:20 | PT.IIE ---
Current Diagnoses Cerebral infarction, unspecified (10/31/20) Surgical History (Last Updated 12/09/19 @ 09:17 by Catherine Loaiza RN) History of back surgery (1989) History of Vaughn-en-Y gastric bypass (2008) History of surgery on arm (~2008) History of tonsillectomy and adenoidectomy (1959) Hx of cholecystectomy (~2012) Hx of hysterectomy (1981) Hx of knee surgery (2015) Hx of varicose veins (~1994) S/P epidural steroid injection (12/02/19) Medical History (Last Reviewed 10/31/20 @ 12:53 by Del Yi DO) Ankle pain (2015) Anxiety Chickenpox (1957) Colon polyps (2009) Depression Eating disorder Fractures GERD (gastroesophageal reflux disease) (2000) Heavy menstrual period (1979) Hemorrhoids (1980) Measles (1957) Mumps (1958) Numbness and tingling Painful menstrual periods PTSD (post-traumatic stress disorder) (2014) Seasonal allergies Substance abuse (2015) Physical Therapy Inpatient Evaluation/Re-Eval M1 PT/OT-IP Prior Functional Status Start: 11/01/20 11:30 Freq: NEEDED Status: Active Protocol: Document 11/01/20 09:20 AB (Rec: 11/01/20 11:45 AB [id number]) Medical Review Prior Functional Status Medical History Reviewed Yes Communication able to make needs known Mobility and Gait pt stated that she is independent with all mobilities and ambulation without AD; stated that she takes care of her spouse who has throat CA and is going to undergo chemo Prior Functional Level (Other details) pt stated that she had hip surgery ~ 5 months ago but was not able to go to outpt PT due to her needed to take care of her spouse. pt also stated that her doctor told her not to drive due to her migraines Social History Household Members spouse Living Arrangements House Number of Floors (Floors) One Floor Number of Stairs To Enter/Railing? 1 step to enter Home Environment Standard Height Toilet,Walk in Shower Home Equipment Shower Seat without Backrest, Hand Held Shower,Grab Bars Near Toilet Additional Social History Comment will not have assistance at home pt has an adjustable bed M2 PT-IP Current Condition Start: 11/01/20 11:30 Freq: NEEDED Status: Active Protocol: Document 11/01/20 09:20 AB (Rec: 11/01/20 11:45 AB [id number]) Physical Therapy Current Condition Current Condition Evaluation Date 11/01/20 Treatment Diagnosis CVA; difficulty in walking Onset Date 10/31/20 M3 PT-IP Subjective Start: 11/01/20 11:30 Freq: NEEDED Status: Active Protocol: Document 11/01/20 09:20 AB (Rec: 11/01/20 11:45 AB [id number]) Subjective Physical Therapy Visit Type Type Initial Evaluation Visit Start Time 09:20 Visit Stop Time 09:44 Total Visit Minutes 24 Number of FILM CLEANER Visits 0 Physical Therapy Visit Comments Patient Comments pt is agreeable to do PT Therapy Pain Assessment Pain When Pain Assessed At Rest Pain Present Pain Present Pain Reported Location Head Intensity 5 Scale Used Numeric (0 - 10) Pain Management Techniques Modification of Treatment, Timing of Activity with Medications M4 PT-IP Mobility and Gait Start: 11/01/20 11:30 Freq: NEEDED Status: Active Protocol: Document 11/01/20 09:20 AB (Rec: 11/01/20 11:45 AB [id number]) PT-Bed Mobility Assessment Supine to Sit Supine to Sit Independent Sit to Supine Sit to Supine Independent PT-Transfer Assessment Sit to and From Stand Sit to and from Stand Independent Equipment Transfer Assistive Device None,Gait Belt Transfers Transfer Destination Chair Transfer Technique Stand Step Pivot Transfer Ability Level of Assist Standby Assistance,1 Person Assistance,Use of Upper Extremities Comments Mobility Comments completed supine<>sit independent. ambulated in room without AD SBA with slight antalgic gait. pt stated that she had R hip surgery 5 months ago and was not able to go for outpt PT. tinetti balance assessment completed and pt is at low fall risk. unable to perform a single leg stance. pt agreed to sit up on chair. call light and table placed within reach. Gait Assessment Gait Gait Assistance Required: Standby Assistance Distance (Feet) 60 Able to Maintain Weight Bearing Status Yes During Gait Assistive Devices Assistive Device None,Gait Belt Orthotic/Prosthetic Devices or Brace: No Gait Deviations General Gait Pattern Decreased Stride Length, Decreased Feet Clearance Factors Limiting Gait Function Factors Limiting Gait Function Decreased Activity Tolerance, Decreased Strength,Pain,Poor Balance Stair Climbing Assessment Evaluation Level of Assist On Stairs Standby Assistance Devices Stair Climbing Assistive Devices None Technique/Endurance Stair Climbing Direction Ascend and Descend Stair Climbing Technique Step to Step Number of Steps Climbed 1 Query Text: Stair Climbing Set # Repetitions (reps) 2 PT-Balance Assessment Sitting Balance and Reactions Static Sitting Balance Ability Good Dynamic Sitting Balance Ability Good Standing Balance and Reactions Static Standing Balance Ability Good Dynamic Standing Balance Ability Fair Device Used without AD Balance Tests Single Limb Standing unable without LOB Functional Assessments Functional Tests Tinetti Balance and Gait Assessment balance: gait: 09/09 total : low fall risk M5 PT-IP Objective Assessments Start: 11/01/20 11:30 Freq: NEEDED Status: Active Protocol: Document 11/01/20 09:20 AB (Rec: 11/01/20 11:45 AB [id number]) Orientation Orientation/Cognition Level of Alertness Alert Orientation Name,Place,Situation Language Function Ability No Deficits Noted Safety Awareness Understands Safety Issues Memory Description No Deficits Noted Strength Lower Extremity Strength Assessment Right Impaired Hip 3+/5 Knee 4-/5 Sensation Assessment Sensation Gross Sensation WNL Muscle Tone Muscle Tone WNL Yes M6 PT-IP Treatment Start: 11/01/20 11:30 Freq: NEEDED Status: Active Protocol: Document 11/01/20 09:20 AB (Rec: 11/01/20 11:45 AB [id number]) Physical Therapy Treatment Education Education Provided Safety M7 PT-IP Assessment and Plan Start: 11/01/20 11:30 Freq: NEEDED Status: Active Protocol: Document 11/01/20 09:20 AB (Rec: 11/01/20 11:45 AB [id number]) PT Summary Assessment and Plan Potential Rehabilitation Potential Good Status of Condition at Evaluation Stable Summary Impairments Pain,ROM,Strength,Balance, Coordination,Transfers,Gait, Activity Tolerance Assessment Summary pt requiring SBA with mobility without AD. pt is a low fall risk but has balance issues due to previous hip surgery. 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 recommending HHPT as pt is not able to drive and get out of the house for outpt PT. pt in agreement. Goals Transfer Goal Independent Gait Goal Independent Gait Distance 200 Other Goals up/down 1 step without AD mod I Days to Meet Goals 5 Frequency of Treatment Frequency Of Treatment Once a Day Treatment Plan Physical Therapy Treatment Plan Bed Mobility Training,Transfer Training,Gait Training, Therapeutic Exercise,Balance Retraining,Discharge Planning, Hot or Cold Pack,Neuromuscular Re-ed,Coordination Retraining Recommendations To Nursing Amount of Assist Needed Standby Assistance Discharge Recommendations PT Discharge Recommendations Home with Assistance,Home Health Transportation Needs at Discharge Private Vehicle
[2020-11-01 10:37] LABS: Troponin I < 0.012 ng/mL (0.01-0.034)
[2020-11-01] MEDS: TRAMADOL 50 MG TABLET PO (11:09)
--- NOTE | 2020-11-01 12:00 | OT.IP.EVAL ---
Current Diagnoses Cerebral infarction, unspecified (10/31/20) Past Medical History (Last Reviewed 10/31/20 @ 12:53 by Del Yi DO) Ankle pain (2015) Anxiety Chickenpox (1957) Colon polyps (2009) Depression Eating disorder Fractures GERD (gastroesophageal reflux disease) (2000) Heavy menstrual period (1979) Hemorrhoids (1980) Measles (1957) Mumps (1958) Numbness and tingling Painful menstrual periods PTSD (post-traumatic stress disorder) (2014) Seasonal allergies Substance abuse (2016) Surgical History (Last Updated 12/09/19 @ 09:17 by Catherine Loaiza RN) History of back surgery (1989) History of Vaughn-en-Y gastric bypass (2008) History of surgery on arm (~2008) History of tonsillectomy and adenoidectomy (1959) Hx of cholecystectomy (~2012) Hx of hysterectomy (1981) Hx of knee surgery (2015) Hx of varicose veins (~1994) S/P epidural steroid injection (12/02/19) Occupational Therapy Inpatient Evaluation/Re-Eval M1 PT/OT-IP Prior Functional Status Start: 11/01/20 13:38 Freq: NEEDED Status: Active Protocol: Document 11/01/20 11:13 [facility] (Rec: 11/01/20 13:57 [facility] [id number]) Medical Review Prior Functional Status Medical History Reviewed Yes Communication able to make needs known Mobility and Gait pt stated that she is independent with all mobilities and ambulation without AD; stated that she takes care of her spouse who has throat CA and is going to undergo chemo Activities of Daily Living and IADL's Pt states completely independent with all ADl , IADl , and is the caregiver for her . Prior Functional Level (Other details) pt stated that she had hip surgery ~ 5 months ago but was not able to go to outpt PT due to her needed to take care of her spouse. pt also stated that her doctor told her not to drive due to her migraines Social History Household Members spouse Living Arrangements House Number of Floors (Floors) One Floor Number of Stairs To Enter/Railing? 1 step to enter Home Environment Standard Height Toilet,Walk in Shower Home Equipment Shower Seat without Backrest, Hand Held Shower,Grab Bars Near Toilet Additional Social History Comment will not have assistance at home pt has an adjustable bed M2 OT-IP Current Condition Start: 11/01/20 13:38 Freq: Status: Active Protocol: Document 11/01/20 11:13 [facility] (Rec: 11/01/20 13:57 [facility] [id number]) Occupational Therapy Current Condition Current Condition Evaluation Date 11/01/20 Treatment Diagnosis CVA Diagnosis Onset Date 10/31/20 M3 OT- IP Subjective and Pain Start: 11/01/20 13:38 Freq: Status: Active Protocol: Document 11/01/20 11:13 [facility] (Rec: 11/01/20 13:57 [facility] [id number]) OT- Subjective Occupational Therapy Visit Type Type Initial Evaluation Visit Start Time 11:13 Visit Stop Time 12:00 Total Visit Minutes 47 Occupational Therapy Visit Comments Patient Comments Pt agreed to do OT eval. Patient/Caregiver Goals TO go home. OT Pain Assessment Pain When Pain Assessed At Rest Pain Present Pain Present Denied Pain M4 OT- IP ADL's Start: 11/01/20 13:38 Freq: Status: Active Protocol: Document 11/01/20 11:13 [facility] (Rec: 11/01/20 13:57 [facility] [id number]) OT [id number] Comments OT Self-Feeding Comments NOt at meal time. OT ADL-Grooming Comments OT Grooming Comments Not performed. OT ADL-Oral Care Comments Oral Care Comments Not performed. OT ADL-Dressing General Eval Lower Body Dressing Ability Independent OT ADL-Toileting General Evaluation Toileting Ability Independent OT ADL-Bathing Bathing Type Bathing Type Shower Comments OT Bathing Comments Per pt just completed shower on her own. M5 OT- IP IADL's Start: 11/01/20 13:38 Freq: Status: Active Protocol: Document 11/01/20 11:13 [facility] (Rec: 11/01/20 13:57 [facility] [id number]) OT-Instrumental Activities of Daily Living Home Safety Awareness Awareness of Need for Assistance at Home Good Awareness Ability to Problem Solve Emergency Able to Problem Solve Situations Home Safety Comments Pt able to answer all home safety questions with good accuracy, however at times having word finding difficulties. Medication Management Medication Management Comments Suggested to have her son assist with supervision at this time. Money Management Money Management Comments Suggested to have her son assist with supervision at this time. Meal Preparation Meal Preparation Comments Suggested to have her son assist with supervision at this time. Implementation Architect Implementation Architect Comments Suggested to have her son assist with supervision at this time. Driving Driving Concerns Identified Regarding Safety M6 OT- IP Functional Cognition Start: 11/01/20 13:38 Freq: Status: Active Protocol: Document 11/01/20 11:13 [facility] (Rec: 11/01/20 13:57 [facility] [id number]) Cognitive Factors Limiting Selfcare Function Cognitive Ability Level of Alertness Alert Patient Orientation Name,Age,Birthday,Month,Date, Year,Day of Week,Place, Situation Attention Span Ability Capable of Focused Attention, Capable of Sustained Attention Ability to Follow Commands Able to Follow Multi-Step Commands Memory Description Short Term Impaired Safety Awareness No Deficits Noted Problem Solving Ability Needs Assist to Identify Solutions Cognitive Tests SLUMS Pt scored 22/30 which implies mild cognitive deficits. Pt able to recall 1/5 objects after time passed, pt not able to draw the hour hands correctly after time given, and pt able to answer 3/4 questions right after a paragraph read. Cognitive Comments Cognitive Assessment Comments Pt scored 155 seconds for [place] Making Prt B which implies significant impairments for executive function, visual attention, task switching, speed of processing, and mental flexibility. Pt aware that she will not drive, in addition her physician told her not to drive due to her migraines. Pt has good insight to have her son assist her with medications for her , in addition home health nurses are also in the house to assist. OT- Vision and Hearing OT- Hearing Assessment OT- Hearing Assessment WFL OT- Vision Assessment Visual Acuity Glasses For Reading Occular Pursuits WFL Visual Convergence WFL Visual Jolley WFL Vision Assessment Comments right eyelid droops a little M7 OT- IP Mobility and Balance Start: 11/01/20 13:38 Freq: Status: Active Protocol: Document 11/01/20 11:13 [facility] (Rec: 11/01/20 13:57 [facility] [id number]) OT-Transfer Assessment Devices Transfer Assistive Devices None OT- Balance Assessment Sitting Balance and Reactions Static Sitting Balance Ability Normal Dynamic Sitting Balance Ability Normal Standing Balance and Reactions Static Standing Balance Ability Normal Dynamic Standing Balance Ability Good M8 OT- IP Objective Assessments Start: 11/01/20 13:38 Freq: Status: Active Protocol: Document 11/01/20 11:13 [facility] (Rec: 11/01/20 13:57 [facility] [id number]) OT Gross Range of Motion Upper Extremity Range of Motion Assessment Within Functional Limits OT Strength Upper Extremity Strength Assessment Within Functional Limits OT- Coordination Assessment Upper Extremity Finger to Nose Test Within Functional Limits Comments Coordination Comments 9 hole peg 18 sec. RUE 20 sec. LUE OT-Muscle Tone Assessment Muscle Tone WNL Yes OT Sensation Assessment Comments Summary Comments Mildly decreased for proprioception for right hand M9 OT- IP Assessment and Plan Start: 11/01/20 13:38 Freq: Status: Active Protocol: Document 11/01/20 11:13 [facility] (Rec: 11/01/20 13:57 [facility] [id number]) OT Summary Assessment and Plan Potential Rehabilitation Potential Good Analytic Complexity at Evaluation Low Summary OT Impairments Functional Cognition Progress Towards Goals Progressing Toward Goals Assessment Summary Pt low complexity and main barriers are decreased STM, executive functioning, and word finding. Pt scored 22/30 for SLUMS which implies mild cognitive deficits. Pt scored 155 seconds for [place] Making Part B which implies significant impairments for executive function, visual attention, task switching, speed of processing, and mental flexibility. Pt has good insight to her deficits. Pt would benefit from outpt . Goals OT-Other Goals Pt to be able to incorporate strategies to improve her short term memory. Days to Meet Goals 2 Frequency of Treatment Frequency Of Treatment Once a Day Treatment Plan OT Treatment Plan Functional Cognition Training, Patient/Family Education, Discharge Planning Discharge Recommendations OT Discharge Recommendations Home with Assistance,Home Health Transportation Needs at Discharge Private Vehicle
--- NOTE | 2020-11-01 13:43 | PC.NURSE ---
AO x4 and able to make needs known. Pt is having some difficulty with word finding/expressive aphasia yielding NIH 1. C/o headache 7/10 on initial assessment. States tylenol is somewhat effective (decreasing pain to 3/10) and lasts about 1.5-[address] Weber and received new orders which were implemented and effective. Other than headache and word finding difficulty, pt does not demonstrate any other deficits. VSS. Tolerating general diet without difficulty. Tele: SR. Pt has been up to the bathroom independently with a steady gait and requires no mobility aids. Voiding without issue and had a BM. Pt is hopeful to go home today.
--- NOTE | 2020-11-01 14:36 | CM.IDA ---
Addendum entered by BAUDILIO Sousa 11/01/20 15:32: Patient expected to DC home this evening, Dr Weber recommends HH OT/LOAN SERVICING REPRESENTATIVE and patient agreeable, requests [facility], this is the agency providing spouse's services. Gave referral to Raquel at [facility], faxed signed [id number], order and clinical packet. No DC summary at this time. Patient made aware Original Note: Initial DCP Assessment Note Patient is a 65 yo female, resident of [place], admitted observation, MRI confirms stroke, echo pending today PCP: No PCP listed Payer: [facility]/[employer] Met w/patient this afternoon, all therapies clearing patient for return home w/ home health LOAN SERVICING REPRESENTATIVE and OT. Patient eager to return home, patient is the primary cg for her , 4 years older than her, who has had multiple health problems throughout their marriage, starting w/hodgkins disease, needing multiple rounds of chemo and radiation, h/o heart transplant, and now stage II esophageal cancer currently on tube feedings while chemo rounds over the next 6 mo will attempt to reduce esophageal tumor. Patient's 42 yo son lives next door and has high functioning aspergers, he lives w/his gf who is legally blind d/t juvenile onset RA and has been assisting son and patient's spouse w/tube feeds (in addition to RN) d/t her own h/o home health care...while patient admitted. Patient feels grateful to have these supports. Patient w/ significant medical history herself to include PTSD, eating disorder, anxiety/depression, Vaughn-en-Y gastric bypass surgery, and substance abuse. This SHIP ERECTOR asked if at any point spouse said enough and patient explains her spouse has always wanted to keep pushing forward, especially for our kids. Patient feeling relieved to have patient home from and on a track forward w/his treatment, tube feeds (supposed to be short term) and home health nursing through [facility]. Patient then received a call from [facility] re: spouse and this SHIP ERECTOR stepped out. Will return to discuss HH OT/LOAN SERVICING REPRESENTATIVE JOSUE Discharge Planning/Care Management CM Discharge Assessment Start: 11/01/20 14:32 Freq: Status: Active Protocol: Document 11/01/20 14:32 JOSUE (Rec: 11/01/20 14:36 JOSUE [id number]) Discharge Planning Assessment Assigned Foiling Machine Operator BAUDILIO Jin DPOA/Assigned Designee Name margo Richard Contact Information [phone] Advance Directives? Yes Advance Directives on File No History Provided By Patient Prior Living Arrangements House Household Members spouse Type of transporation used prior to Drives own vehicle admit Independent with ADL's Yes Is patient alert and oriented? Yes Patient/Family Preference Home with Home Health Barriers to Discharge No Discharge Plan Home with Home Health Transportation Arrangement Family Referrals Initiated Home Health
--- NOTE | 2020-11-01 17:21 | PC.NURSE ---
Evening shift note: Pt discharging with all belongings, PIV removed, catheter intact, bandage placed. Discharge packet reviewed, all questions answered, taken via wheelchair to ER entrance and assisted into private vehicle, no further patient contact at this time.
--- NOTE | 2020-11-02 11:49 | P.DS_ITS ---
History of Present Illness History of Present Illness Date Patient Seen: 11/01/20 Chief complaint: migraine/stroke Narrative: Patient is a 65-year-old female with history premenopausal migraines with aura, history of gastric bypass surgery who drove herself to the emergency department due to ongoing headache and speech difficulties. 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 About 5 days ago, she started noticing headache and speech difficulties of sudden onset while staying in [place] where her has been getting cancer treatment at [facility]. She had picked up some medications at pharmacy and was waiting to catch Uber to take her back to the hotel room. As [employer] arrived patient developed a squeezing headache and found that she was not able to work her phone to verify she was catching the right ride. She states she had to show the [employer] parts delivery driver her parts delivery driver's license and he was able to get her to her hotel room. She also noticed her speech was quite garbled. Once at the hotel she could not figure out how to push the buttons to get on the elevator. Somehow she got to her room and fell asleep. The following morning she found that she had difficulty typing on the computer while on Facebook. These difficulties continued on an intermittent basis once he got back home a couple of days ago. Patient is in charge of her 's medications and tube feeds and found that she was able to perform these tasks at home. She decided to seek medical attention today and drove herself to the ER since headache and speech difficulties were not fully going away. She has not noticed any unilateral weakness, numbness or tingling and has not noticed loss of vision. She states the headache is much less severe than her migraines and she really has not had any migraines she she went into menopause. On ED evaluation, her initial BP was 190/97 but has been drifting down on its own. Her NIHSS score was 1 for left leg drift. EKG showed sinus rhythm, T-wave inversions in 1, 3, aVL and V2 to V6. EKG findings are new since her last EKG on 12/01/2019. Patient has not had any chest pain and her troponin was normal. Head CT showed acute to subacute infarction involving left posterior parietal occipital lobe. No bleed. Discharge Providers Provider Date of admission: 10/31/20 14:01 Discharge Date: 11/01/20 Consults: 10/31/20 16:19 Consult to Speech Therapy Evaluate & Treat Comment: Physician Instructions: Evaluate and treat 10/31/20 16:20 Consult to Occupational Therapy Evaluate & Treat Comment: Physician Instructions: Evaluate and treat Consult to Physical Therapy Evaluate & Treat Comment: Physician Instructions: Evaluate and Treat 11/01/20 15:26 Consult to Home Health Routine Comment: Reason For Exam: Home health upon DC Discharge provider: Rina Webre MD Summary Hospital Course Discharge Diagnosis: 1. Acute CVA involving the left temporoparietal lobe 2. GERD 3. Migraine headache Hospital Course: Patient was admitted to the hospital for symptoms suggestive of an acute stroke. She had difficulty with speech in addition to confusion after taking and over. The patient ultimately had an MRI of the brain which showed a left temporoparietal lobe subacute area of ischemia. She underwent cardiac echo which revealed normal LV function with subtle distal inferior and mid infe roseptal hypokinesis, her echo ejection fraction was 50 55%. There was dyssynchrony noted consistent with conduction system disease, aortic sclerosis but no aortic stenosis was noted. There was mild mitral annular calcification with mitral regurgitation. The patient had significant improvement in her speech. Occasionally she would have difficulty with word finding and some word apraxia. She had no weakness of her lower extremities. She was evaluated by speech and OT. She was deemed appropriate to discharge home. Patient will have outpatient speech therapy with home health. Exam Vital Signs (past 8 hours): Oxygen Delivery Method Room Air Oxygen Flow Rate 0 Narrative Exam Narrative: Very pleasant female resting comfortably in no obvious distress Lungs: Clear to auscultation Cardiac exam: Regular rate and rhythm normal S1-S2 with a 2/6 systolic ejection murmur Abdomen: Soft nontender nondistended Neuro exam: Nonfocal, NIH score 0, patient does have occasional difficulty with word finding/apraxia. Objective Labs Result Diagrams: 10/31/20 12:40 11/01/20 04:30 Labs: Restricted diffusion within the left temporoparietal lobe consistent with acute/subacute ischemia. No superimposed hemorrhage. 2. No areas of hemodynamically significant stenosis, vascular occlusion or aneurysmal dilation within the neck vasculature. 3. No areas of hemodynamically significant stenosis, vascular occlusion or aneurysmal dilation within the posterior or anterior circulation. [facility] Medical History Ankle pain (2015) Anxiety Chickenpox (1957) Colon polyps (2009) Depression Eating disorder Fractures GERD (gastroesophageal reflux disease) (2000) Heavy menstrual period (1979) Hemorrhoids (1980) Measles (1957) Mumps (1958) Numbness and tingling Painful menstrual periods PTSD (post-traumatic stress disorder) (2014) Seasonal allergies Substance abuse (2016) Surgical History (Updated 12/09/19 @ 09:17 by Catherine Loaiza RN) History of back surgery (1989) History of Vaughn-en-Y gastric bypass (2008) History of surgery on arm (~2008) History of tonsillectomy and adenoidectomy (1959) Hx of cholecystectomy (~2012) Hx of hysterectomy (1981) Hx of knee surgery (2015) Hx of varicose veins (~1994) S/P epidural steroid injection (12/02/19) Family History (Updated 05/04/18 @ 14:42 by Deysi Serrano LPN) Father Heart failure Hypertension Hyperlipidemia Mental health problem Substance abuse Depression Mother PAD (peripheral artery disease) Alzheimer's disease Hypertension Hyperlipidemia Mental health problem Osteoporosis Brother No problems noted. Grandfather Heart disease Grandmother Depression Grandfather Depression Grandmother Stroke Family/Other Depression ADHD (attention deficit hyperactivity disorder) Aspergers' syndrome Family/Other Anxiety Social History household members: spouse Smoking Status: Former smoker Tobacco: How many years used: 25 alcohol intake: former Discharge Assessment & Plan Assessment and Plan Assessment: 1. Acute left temporoparietal lobe CVA 2. GERD 3. Migraine headache Plan of Treatment: 1. Medications as prescribed Follow-up with primary care provider Duplex of the carotids not necessary, as MRI demonstrated no intracranial or carotid stenosis. Discharge Plan Discharge Plan Patient Disposition: Home Discharge orders & Medications Prescriptions: New atorvastatin [Lipitor] 20 mg Tablet 20 mg PO BEDTIME Qty: 30 RF: 0 aspirin 81 mg Tablet,Delayed Release (Dr/Ec) 81 mg PO DAILY Qty: 30 RF: 0 tramadol 50 mg Tablet 50 mg PO QID PRN (Reason: Pain, Moderate (4-6)) Qty: 15 RF: 0 clopidogrel [Plavix] 75 mg tablet 75 mg PO DAILY Qty: 20 RF: 0 Continued Women's 50 Plus Multivitamin 400 mcg-500 mg calcium-20 mcg tablet 1 tab PO DAILY RF: 0 omeprazole 20 mg capsule,delayed release(DR/EC) 20 mg PO BID RF: 0 zolpidem 5 mg tablet 5 mg PO BEDTIME PRN (Reason: Insomnia) RF: 0 Discharge Health Status Multidrug resistant organism: No MDRO Diet/Activity/Treatments Diet: Low-sodium and Low-cholesterol Activity: as tolerated Other treatments: needs outpatient carotid dopplers to r/o carotid stenosis Discharge Data Attending Provider: Chadwick Jones
== END 2020-11-01 17:36 | disposition home or self-care (01) ==
LOC: ED 13:57 → AC 14:15
PROVIDERS: Nurse Practitioner Adult Health; Admitting Provider Internal Medicine; Emergency Provider Emergency Medicine; Referring Provider Emergency Medicine; Visit Provider Internal Medicine
DX: I63.9 Cerebral infarction, unspecified (principal); R47.01 Aphasia; R51.9 Headache, unspecified; R94.31 Abnormal electrocardiogram [ECG] [EKG]; R29.818 Other symptoms and signs involving the nervous system; Z20.822 Contact with and (suspected) exposure to COVID-19
CPT/HCPCS: 36415; 70450; 70548; 70553; 71045; 80048; 80053; 80061; 80320; 80329; 81003; 82550; 82962; 83690; 83735; 84443; 84484; 85025; 85610; 85651; 85730; 86140; 87635; 92523; 93005; 93306; 96372; 97161; 97165; 99284; C9803; G0378; A9579; G0480; J1650

== ENCOUNTER → 2020-12-13 14:29 | Outpatient (CLI) | payer MEDICARE, OTHER, SELFPAY ==
[2020-10-31 14:36] VITALS: BMI 30.2
[2020-12-13 17:35] LABS: Estimated Glomerular Filt Rate > 60.0 mL/min (>60)
== END ==
PROVIDERS: PCP Family Medicine; Referring Provider Family Medicine; Visit Provider Family Medicine
DX: I73.9 Peripheral vascular disease, unspecified (principal)
CPT/HCPCS: 36415; 82565

== ENCOUNTER 2021-01-04 18:21 | Observation (INO) | payer MEDICARE, OTHER, SELFPAY ==
[2020-10-31 14:36] VITALS: BMI 30.2
[2021-01-04] VITALS (12 sets, daily range): BP systolic 150–192; BP diastolic 70–98; PULSE 70–89; RESP 13–51; TEMP 36.5–36.6; O2SAT 96–99; BMI 28.3
--- NOTE | 2021-01-04 18:44 | ED_ITS ---
HPI - General Adult General Chief complaint: Hypertension Stated complaint: states really high blood pressure and dizziness Time Seen by Provider: 01/04/21 18:44 Source: patient Mode of arrival: Ambulatory Limitations: no limitations History of Present Illness HPI narrative: Patient is a 65-year-old female with a she recent history of CVA in October 2020. His at that time she presented with difficulty speaking and confusion. She was placed on Plavix. She also has history of peripheral vascular disease in fact she was supposed to have an angioplasty of her right leg today but canceled due to her very ill . She said today she was feeling okay however around 4:00 a.m. she started feeling dizzy as she laid down to go to sleep to see if it would help she woke up and felt the same. His nursing noticed that she has had some balance issues in the ED is. She said that she has been having some blurry vision for couple of days but no blackening or loss of vision. She denies chest pain palpitations or shortness of breath. She was taken off her Plavix for the last 5 days for her surgery today which was canceled. She did take Plavix today. She has no weakness numbness or tingling she has no confusion headache or difficulty speaking. Last known well 4:00 p.m. Onset (ago): hour(s) Related Data Home Medications Medication Instructions Recorded Confirmed cnrhlmcz-rzs-[id number] ac 400 1 tab PO DAILY tab 05/05/19 01/04/21 mcg-calcium carb 500 mg-vit K1 20 mcg tablet omeprazole 20 mg PO BID 12/09/19 01/04/21 diphenhydramine-acetaminophen 1 tab PO BEDTIME PRN 01/04/21 01/04/21 [Tylenol PM Extra Strength] eszopiclone [Lunesta] 2 mg PO BEDTIME 01/04/21 01/04/21 Previous Rx's Medication Instructions Recorded aspirin 81 mg PO DAILY #30 tab 11/01/20 atorvastatin [Lipitor] 20 mg PO BEDTIME #30 tab 11/01/20 clopidogrel [Plavix] 75 mg PO DAILY #20 tab 11/01/20 Allergies Allergy/AdvReac Type Severity Reaction Status Date / Time adhesive tape Allergy Severe Itching Verified 01/04/21 18:32 w/prolonged use erythromycin base AdvReac Severe Stomach Verified 01/04/21 18:32 [ERYTHROMYCIN BASE] cramps Review of Systems Review of Systems ROS Unobtainable: All systems reviewed & are unremarkable except as noted in HPI and below Constitutional Constitutional: Denies chills, Denies fever(s), Denies frequent falls, Denies headache(s), Denies lethargy and Denies weakness Eyes Eyes: Denies blind spots, Reports blurry vision, Denies diplopia and Denies dry eyes ENT Ears, Nose, Mouth, and Throat: Denies abnormal hearing, Reports dizziness and Denies headache(s) Cardiovascular Cardiovascular: Denies chest pain, Denies syncope, Denies irregular heart rhythm, Denies lightheadedness, Denies palpitations, Denies dyspnea, Denies dyspnea on exertion and Denies orthopnea Respiratory Respiratory: Denies cough, Denies dyspnea, Denies dyspnea on exertion and Denies wheezing Gastrointestinal Gastrointestinal: Denies abdominal pain, Denies change in bowel habits, Denies diarrhea, Denies nausea and Denies vomiting Musculoskeletal Musculoskeletal: Denies back pain and Denies myalgias Integumentary/Breasts Skin/Breast: Denies pruritus, Denies erythema, Denies rash and Denies wounds Neurologic Neurologic: Reports as per HPI, Denies abnormal hearing, Denies abnormal movements, Denies abnormal speech, Reports dizziness, Denies syncope, Denies frequent falls, Denies headache(s) and Denies weakness Endocrine Endocrine: Denies palpitations Allergic/Immunologic Allergic/Immunologic: Denies wheezing Patient History Medical History Ankle pain (2015) Anxiety Cerebrovascular accident Chickenpox (1957) Colon polyps (2009) Depression Eating disorder Fractures GERD (gastroesophageal reflux disease) (2000) Heavy menstrual period (1979) Hemorrhoids (1980) Measles (1957) Mumps (1958) Numbness and tingling Painful menstrual periods PTSD (post-traumatic stress disorder) (2014) Seasonal allergies Substance abuse (2016) Surgical History History of back surgery (1989) History of Vaughn-en-Y gastric bypass (2008) History of surgery on arm (~2008) History of tonsillectomy and adenoidectomy (1959) Hx of cholecystectomy (~2012) Hx of hysterectomy (1981) Hx of knee surgery (2016) Hx of varicose veins (~1994) S/P epidural steroid injection (12/02/19) Family History Father Heart failure Hypertension Hyperlipidemia Mental health problem Substance abuse Depression Mother PAD (peripheral artery disease) Alzheimer's disease Hypertension Hyperlipidemia Mental health problem Osteoporosis Brother No problems noted. Grandfather Heart disease Grandmother Depression Grandfather Depression Grandmother Stroke Family/Other Depression ADHD (attention deficit hyperactivity disorder) Aspergers' syndrome Family/Other Anxiety Social History household members: spouse Smoking Status: Former smoker Tobacco: How many years used: 25 alcohol intake: former Smoking Status: Former smoker alcohol intake frequency: 0-2 drinks per day Alcohol type: wine Substance Use Type: does not use Exam Initial Vital Signs Initial Vital Signs: Vital Signs Temperature 97.7 F 01/04/21 18:32 Pulse Rate 75 01/04/21 18:32 Respiratory Rate 18 01/04/21 18:32 Blood Pressure 173/90 H 01/04/21 18:32 Pulse Oximetry 97 01/04/21 18:32 GENERAL: Alert well-appearing 65-year-old female and in no acute distress. HEENT: Head atraumatic,EOMI, pupils reactive, face symmetric, moist mucous membranes CARDIOVASCULAR: Regular rate and rhythm without murmurs, rubs or gallops. RESPIRATORY: Breath sounds equal bilaterally, no wheezes rales or rhonchi. ABDOMEN: Soft, nontender. Normoactive bowel sounds all 4 quadrants. No guarding or rebound. EXTREMITIES: Normal range of motion, no clubbing or edema. Neurovascularly intact NEUROLOGICAL: Alert and oriented x4.Normal gait and speech. Cranial nerves II through XII grossly intact. Good [id number], good [id number], strength equal bilaterally, no dysarthria or aphasia, sensation in tact to soft touch bilaterally, no visual changes, no facial droop SKIN: Warm, dry, no laceration, no petechiae, no rashes or lesions. Scores NIH Stroke Scale Level of Conciousness: Alert, keenly responsive Ask month/age: Answers both questions correctly. Open/close eyes, close hand: Performs both tasks correctly Best gaze horizontal: Normal Visual ragland: No visual loss Facial palsy: Normal symetrical movement Left arm drift: No drift for full 10 sec Right arm drift: No drift for full 10 sec Left leg drift: No drift for full 5 sec Right leg drift: No drift for full 5 sec Limb ataxia: Absent Sensory on face/arms/legs: Normal, no sensory loss Best language: No aphasia, normal Dysarthria: Normal Extinction or inattention: No abnormality Total NIH Stroke scale score: 0 Course Orders Ordered: ED Orders 01/04/21 18:53 CT head/brain wo con Stat EKG-12 Lead Stat 01/04/21 18:54 CT angio head and neck Stat 01/04/21 18:58 Complete Blood Count AUTO DIFF Stat Comprehensive Metabolic Panel Stat Partial Thromboplastin Time Stat Prothrombin Time INR Stat Troponin & CK Cardiac Panel Stat 01/04/21 19:40 Urine Drug Screen, Rapid Stat 01/04/21 21:45 COVID19 - ADMIT ([employer] swab/PCR) Stat Acetaminophen (Acetaminophen 325 Mg Tablet) 650 mg PO Q6HR PRN PRN Reason: Fever/Mild Pain (1-3) Al Hydrox/Mg Hydrox/Simethicone (Mag Hydrox/Alum/Simeth 30 Ml Udc) 30 ml PO Q6HR PRN PRN Reason: Dyspepsia Aspirin (Aspirin Ec 81 Mg Tablet) 81 mg PO DAILY MAXIMINO Bisacodyl (Bisacodyl 10 Mg Supp) 10 mg NE DAILY PRN PRN Reason: Constipation Calcium Carbonate (Calcium Carbonate 500 Mg Tab) 1,000 mg PO Q4HR PRN PRN Reason: Dyspepsia Clopidogrel Bisulfate (Clopidogrel 75 Mg Tablet) 75 mg PO DAILY [facility] Docusate Sodium (Docusate 100 Mg Capsule) 100 mg PO BID PRN PRN Reason: Constipation Enoxaparin Sodium (Enoxaparin 40 Mg/0.4 Ml Syringe) 40 mg SUBCUT DAILY [facility] Meclizine HCl (Meclizine Hcl 12.5 Mg Tablet) 25 mg PO Q6HR PRN PRN Reason: Vertigo Naloxone HCl (Naloxone 0.4 Mg/Ml Vial) 0.2 mg IV Q2MIN PRN PRN Reason: Opiate Reversal Ondansetron HCl (Ondansetron 4 Mg/2 Ml Inj) 4 mg IV Q8HR PRN PRN Reason: Nausea And Vomiting Discontinued Medications Aspirin (Aspirin 81 Mg Chew Tab) 324 mg PO NOW ONE Stop: 01/04/21 21:36 Last Admin: 01/04/21 21:45 Dose: Not Given Documented by: MERLYN Clopidogrel Bisulfate (Clopidogrel 75 Mg Tablet) 75 mg PO NOW ONE Stop: 01/04/21 21:36 Last Admin: 01/04/21 21:45 Dose: Not Given Documented by: MERLYN Sodium Chloride (Normal Saline 0.9%) 1,000 mls @ 150 mls/hr IV CONT MAXIMINO Last Admin: 01/04/21 19:45 Dose: 150 mls/hr Documented by: MERLYN Sodium Chloride (Normal Saline 0.9%) 1,000 mls @ 50 mls/hr IV CONT MAXIMINO Meclizine HCl (Meclizine Hcl 12.5 Mg Tablet) 25 mg PO NOW ONE Stop: 01/04/21 20:46 Last Admin: 01/04/21 20:52 Dose: 25 mg Documented by: MERLYN Vital Signs Vital signs: Vital Signs - 8 hr 01/04/21 18:32 01/04/21 19:35 01/04/21 19:38 Temperature 97.7 F Pulse Rate 75 78 79 Respiratory Rate 18 17 Blood Pressure 173/90 H 192/98 H 172/81 H Pulse Oximetry 97 97 99 01/04/21 20:00 01/04/21 20:30 01/04/21 21:00 Temperature Pulse Rate 88 75 78 Respiratory Rate 13 14 51 H Blood Pressure 188/92 H 174/89 H 150/82 H Pulse Oximetry 98 97 97 01/04/21 21:30 01/04/21 21:31 01/04/21 21:40 Temperature Pulse Rate 70 73 89 Respiratory Rate 42 H 26 H 19 Blood Pressure 192/83 H Pulse Oximetry 96 96 98 Medical Decision Making Lab Data Lab results reviewed: Yes I reviewed the patient's lab results. Result diagrams: 01/04/21 18:58 01/04/21 18:58 Labs: Lab Results 01/04/21 01/04/21 01/04/21 Range/Units 18:58 18:58 18:58 WBC 6.2 (4.5-11.0) X10^3/uL RBC 3.87 L (4.0-5.2) X10^6/uL Hgb 12.9 (12.0-16.0) g/dL Hct 38.8 (36-46) % MCV 100.4 H (80-100) fL MCH 33.3 (26-34) PG MCHC 33.2 (30-36) % RDW 13.5 (11.6-14.8) % Plt Count 323 (150-400) X10^3/uL Neut % (Auto) 60.7 (50-75) % Lymph % (Auto) 30.7 (25-40) % [place] % (Auto) 6.8 (3-14) % Eos % (Auto) 1.3 L (2-4) % Baso % (Auto) 0.5 (0-2) % Neut # (Auto) 3800 (3252-0287) /uL Lymph # (Auto) 1900 (3206-0235) /uL [place] # (Auto) 400 (0-900) /uL Eos # (Auto) 100 (0-450) /uL Baso # (Auto) 0 (0-100) /uL PT 10.6 (10.1-12.7) SECONDS INR 0.9 (0.9-1.3) APTT 31 D (26.4-36.2) SECONDS Sodium 142 (137-145) mmol/L Potassium 4.0 (3.4-5.1) mmol/L Chloride 112 H (98-107) mmol/L Carbon Dioxide 21 L (22-32) mmol/L BUN 12 (7-17) mg/dL Creatinine 0.59 (0.52-1.04) mg/dL Estimated GFR > 60.0 (>60) mL/min BUN/Creatinine Ratio 20.3 (6-22) Glucose 97 (80-110) mg/dL Calcium 9.3 (8.4-10.2) mg/dL Magnesium (1.6-2.3) mg/dL Total Bilirubin 0.5 (0.2-1.3) mg/dL AST 26 (14-36) IU/L ALT 20 (<35) IU/L Alkaline Phosphatase 90 (38-126) U/L Total Creatine Kinase 58 (30-135) U/L CK-MB (CK-2) TNP CK-MB (CK-2) Rel Index TNP Troponin I < 0.012 (0.01-0.034) ng/mL Total Protein 6.9 (6.3-8.2) g/dL Albumin 4.3 (3.5-5.0) g/dL Globulin 2.6 (1.7-4.1) g/dL Albumin/Globulin Ratio 1.7 (1.0-2.8) U Opiates 300ng/mL cut (Negative) Ur Oxycodone Screen (Negative) Urine Methadone Screen (Negative) Ur Barbiturates Screen (Negative) U Tricyclic Antidepress (Negative) Ur Phencyclidine Scrn (Negative) Ur Amphetamines Screen (Negative) U Methamphetamines Scrn (Negative) Ur MDMA Scrn (Ecstasy) (Negative) U Benzodiazepines Scrn (Negative) Urine Cocaine Screen (Negative) U Marijuana (THC) Screen (Negative) SARS-CoV-2 (PCR) (Negative) 01/04/21 01/04/21 01/04/21 Range/Units 18:58 19:40 21:45 WBC (4.5-11.0) X10^3/uL RBC (4.0-5.2) X10^6/uL Hgb (12.0-16.0) g/dL Hct (36-46) % MCV (80-100) fL MCH (26-34) PG MCHC (30-36) % RDW (11.6-14.8) % Plt Count (150-400) X10^3/uL Neut % (Auto) (50-75) % Lymph % (Auto) (25-40) % [place]ett % (Auto) (3-14) % Eos % (Auto) (2-4) % Baso % (Auto) (0-2) % Neut # (Auto) (1188-5235) /uL Lymph # (Auto) (0651-4849) /uL [place]ett # (Auto) (0-900) /uL Eos # (Auto) (0-450) /uL Baso # (Auto) (0-100) /uL PT (10.1-12.7) SECONDS INR (0.9-1.3) APTT (26.4-36.2) SECONDS Sodium (137-145) mmol/L Potassium (3.4-5.1) mmol/L Chloride (98-107) mmol/L Carbon Dioxide (22-32) mmol/L BUN (7-17) mg/dL Creatinine (0.52-1.04) mg/dL Estimated GFR (>60) mL/min BUN/Creatinine Ratio (6-22) Glucose (80-110) mg/dL Calcium (8.4-10.2) mg/dL Magnesium 2.0 (1.6-2.3) mg/dL Total Bilirubin (0.2-1.3) mg/dL AST (14-36) IU/L ALT (<35) IU/L Alkaline Phosphatase (38-126) U/L Total Creatine Kinase (30-135) U/L CK-MB (CK-2) CK-MB (CK-2) Rel Index Troponin I (0.01-0.034) ng/mL Total Protein (6.3-8.2) g/dL Albumin (3.5-5.0) g/dL Globulin (1.7-4.1) g/dL Albumin/Globulin Ratio (1.0-2.8) U Opiates 300ng/mL cut Negative (Negative) Ur Oxycodone Screen Negative (Negative) Urine Methadone Screen Negative (Negative) Ur Barbiturates Screen Negative (Negative) U Tricyclic Antidepress Negative (Negative) Ur Phencyclidine Scrn Negative (Negative) Ur Amphetamines Screen Negative (Negative) U Methamphetamines Scrn Negative (Negative) Ur MDMA Scrn (Ecstasy) Negative (Negative) U Benzodiazepines Scrn Negative (Negative) Urine Cocaine Screen Negative (Negative) U Marijuana (THC) Screen Negative (Negative) SARS-CoV-2 (PCR) Negative (Negative) Urine Dip Bedside Urine Glucose Negative Bedside Urine Bilirubin - Negative Bedside Urine Ketone - Negative Urine Specific Clay 1.010 Bedside Urine Occult Blood - Negative Bedside Urine pH 6.0 Bedside Urine Protein - Negative Bedside Urine Urobilinogen - Negative Bedside Urine Nitrite + Positive Bedside Urine Leukocytes - Negative Esterase Point of care testing: Urine Dip Bedside Urine Glucose Negative Bedside Urine Bilirubin - Negative Bedside Urine Ketone - Negative Urine Specific Clay 1.010 Bedside Urine Occult Blood - Negative Bedside Urine pH 6.0 Bedside Urine Protein - Negative Bedside Urine Urobilinogen - Negative Bedside Urine Nitrite + Positive Bedside Urine Leukocytes - Negative Esterase Imaging Data CT scan - head: Radiologist's Impression: PROCEDURE: CT HEAD/BRAIN WO CON INDICATIONS: dizzy recent stroke 10/31/20 TECHNIQUE: Noncontrast 4.5 mm thick angled axial sections acquired from the foramen magnum to the vertex, with coronal and sagittal reformats. For radiation dose reduction, the following was used: automated exposure control, adjustment of mA and/or kV according to p atient size. COMPARISON: [facility], MR, MR STROKE, 10/31/2020, 16:57. [facility], CT, CT HEAD/BRAIN WO CON, 10/31/2020, 12:22. FINDINGS: Image quality: Excellent. CSF spaces: Basal cisterns are patent. No extra-axial fluid collections. Ventricles are normal in size and shape. Brain: No intracranial hemorrhage, mass, or mass effect. There are small areas of cortical and subcortical hypodensity in the left parietal and temporal lobes corresponding to subacute to chronic infarcts visualized on the prior MRI. No new areas of soto-white matter effacement. Skull and face: Calvarium and visualized facial bones are intact, without suspicious lesions. Sinuses: Visualized sinuses and mastoids are clear. IMPRESSION: 1. Small subacute to chronic cortical and subcortical infarcts redemonstrated in the left temporal and parietal lobes. No evidence of acute hemorrhage or mass effect. No definite new infarct identified. Dictated by: Mariano Cevallos M.D. on 01/04/2021 at 19:25 Approved by: Mariano Cevallos M.D. on 01/04/2021 at 19:28 CTA - brain/neck: Radiologist's Impression: PROCEDURE: CT ANGIO HEAD AND NECK INDICATIONS: Dizziness TECHNIQUE: After the administration of intravenous contrast, 1 mm thick sections acquired from the aortic arch through the [place] of [place]. Post-contrast 4.5 mm thick sections then re-acquired from the foramen magnum to the vertex. 3-dimensional jfcwgnh-vwvaxuaoe-ibtnonrbcs (MIP) and/or volume rendering reformats were acquired of the central intracranial vasculature and neck separately. COMPARISON: [facility], CT, CT HEAD/BRAIN WO CON, 10/31/2020, 12:22. [facility], MR, MR STROKE, 10/31/2020, 16:57. FINDINGS: Image quality: Excellent. BRAIN: CSF spaces: Basal cisterns are patent. No extra-axial fluid collections. Ventricles are normal in size and shape. Brain: No intracranial hematoma collections, mass, or mass effect. There are a few cortical and subcortical hypodensities redemonstrated in the left temporal and parietal lobes consistent with subacute to chronic infarcts as seen on the prior MRI study. No definite new infarcts identified. No abnormal intracranial enhancement. Skull and face: Calvarium and facial bones appear intact, without suspicious lesions. Orbits appear normal. Sinuses: Sinuses and mastoids are clear. HEAD CT ANGIOGRAPHY: Anterior circulation: Intracranial internal carotid arteries are normal in size and appear patent bilaterally. There is mild atherosclerotic calcification along the cavernous segments of the internal carotid arteries. The paired anterior cerebral arteries appear patent bilaterally. The anterior communicating artery also appears patent. The middle cerebral arteries appear patent bilaterally. No high-grade stenosis, occlusion, or filling defects. No cerebral aneurysms identified. Posterior circulation: Visualized portions of the vertebral arteries demonstrate appear patent, and join to form a patent basilar artery. The posterior cerebral arteries appears patent bilaterally. No high-grade stenosis, occlusion, or filling defects. No cerebral aneurysms identified. NECK CT ANGIOGRAPHY: Carotid system: The great vessels demonstrate a bovine aortic arch with common origin of the right brachiocephalic and left common carotid arteries as they arise from the aortic arch. The origins of the common carotid arteries appear patent. The common carotid arteries demonstrate normal caliber and courses. There is bilateral mild calcified plaque at the carotid bifurcations extending into the carotid bulbs. There is associated mild narrowing on the right and minimal narrowing on the left. The internal carotid arteries demonstrate normal calibers and courses. Posterior circulation: The origins of the vertebral arteries both appear patent. There is a right dominant vertebrobasilar system. The more superior extracranial portions of both vertebral arteries also demonstrate normal courses and calibers. They join to form a patent basilar artery. Soft tissues: Visualized neck soft tissues demonstrate no suspicious abnormalities. Bones: No suspicious bony lesions. Visualized cervical spine appears normally aligned. IMPRESSION: 1. No high-grade stenosis or occlusion of the central intracranial arteries. 2. No high-grade stenosis or occlusion of the head and neck arteries. There is mild right and minimal left narrowing in the carotid bulbs. 3. No definite acute intracranial abnormality. Multiple small cortical and subcortical left temporoparietal subacute to chronic infarcts redemonstrated. Any quantitative measurements of stenosis were performed using NASCET criteria. Dictated by: Mariano Cevallos M.D. on 01/04/2021 at 19:28 ECG Data Attestation: I personally reviewed and interpreted this ECG as follows: Prior ECG tracings: available for review Interpretation: Normal sinus rhythm rate 70 p.r. interval 162 QRS [address]-T changes improved from previous EKG which showed diffuse T-wave inversions and ST depression. MDM Narrative Medical decision making narrative: Both patient's noncontrast head CT and CT angio shows subacute and chronic events. No acute events although patient is still quite dizzy and does not feel rate standing. With her being off Plavix or last 5 days possible that she did have an event. She has NIH of 0 but with dizziness this could be posterior CVA. His discussion with Romeo ANNA agrees with his admission for MRI in the morning. Discharge Plan Departure Patient Disposition: Admitted as Observation Clinical Impression: Brain TIA Admit Date/Time: 01/04/21 21:45 Admit Provider: Ken Walters
--- NOTE | 2021-01-04 18:53 | DI.CT.S_ITS ---
PROCEDURE: CT HEAD/BRAIN WO CON INDICATIONS: dizzy recent stroke 10/31/20 TECHNIQUE: Noncontrast 4.5 mm thick angled axial sections acquired from the foramen magnum to the vertex, with coronal and sagittal reformats. For radiation dose reduction, the following was used: automated exposure control, adjustment of mA and/or kV according to patient size. COMPARISON: [facility], MR, MR STROKE, 10/31/2020, 16:57. [facility], CT, CT HEAD/BRAIN WO CON, 10/31/2020, 12:22. FINDINGS: Image quality: Excellent. CSF spaces: Basal cisterns are patent. No extra-axial fluid collections. Ventricles are normal in size and shape. Brain: No intracranial hemorrhage, mass, or mass effect. There are small areas of cortical and subcortical hypodensity in the left parietal and temporal lobes corresponding to subacute to chronic infarcts visualized on the prior MRI. No new areas of soto-white matter effacement. Skull and face: Calvarium and visualized facial bones are intact, without suspicious lesions. Sinuses: Visualized sinuses and mastoids are clear. IMPRESSION: 1. Small subacute to chronic cortical and subcortical infarcts redemonstrated in the left temporal and parietal lobes. No evidence of acute hemorrhage or mass effect. No definite new infarct identified. Dictated by: Mariano Cevlalos M.D. on 01/04/2021 at 19:25 Approved by: Mariano Cevallos M.D. on 01/04/2021 at 19:28
--- NOTE | 2021-01-04 18:54 | DI.CT.S_ITS ---
PROCEDURE: CT ANGIO HEAD AND NECK INDICATIONS: Dizziness TECHNIQUE: After the administration of intravenous contrast, 1 mm thick sections acquired from the aortic arch through the [place]. Post-contrast 4.5 mm thick sections then re-acquired from the foramen magnum to the vertex. 3-dimensional nicffft-uorqzpznp-ylfglyyjag (MIP) and/or volume rendering reformats were acquired of the central intracranial vasculature and neck separately. COMPARISON: [facility], CT, CT HEAD/BRAIN WO CON, 10/31/2020, 12:22. [facility], MR, MR STROKE, 10/31/2020, 16:57. FINDINGS: Image quality: Excellent. BRAIN: CSF spaces: Basal cisterns are patent. No extra-axial fluid collections. Ventricles are normal in size and shape. Brain: No intracranial hematoma collections, mass, or mass effect. There are a few cortical and subcortical hypodensities redemonstrated in the left temporal and parietal lobes consistent with subacute to chronic infarcts as seen on the prior MRI study. No definite new infarcts identified. No abnormal intracranial enhancement. Skull and face: Calvarium and facial bones appear intact, without suspicious lesions. Orbits appear normal. Sinuses: Sinuses and mastoids are clear. HEAD CT ANGIOGRAPHY: Anterior circulation: Intracranial internal carotid arteries are normal in size and appear patent bilaterally. There is mild atherosclerotic calcification along the cavernous segments of the internal carotid arteries. The paired anterior cerebral arteries appear patent bilaterally. The anterior communicating artery also appears patent. The middle cerebral arteries appear patent bilaterally. No high-grade stenosis, occlusion, or filling defects. No cerebral aneurysms identified. Posterior circulation: Visualized portions of the vertebral arteries demonstrate appear patent, and join to form a patent basilar artery. The posterior cerebral arteries appears patent bilaterally. No high-grade stenosis, occlusion, or filling defects. No cerebral aneurysms identified. NECK CT ANGIOGRAPHY: Carotid system: The great vessels demonstrate a bovine aortic arch with common origin of the right brachiocephalic and left common carotid arteries as they arise from the aortic arch. The origins of the common carotid arteries appear patent. The common carotid arteries demonstrate normal caliber and courses. There is bilateral mild calcified plaque at the carotid bifurcations extending into the carotid bulbs. There is associated mild narrowing on the right and minimal narrowing on the left. The internal carotid arteries demonstrate normal calibers and courses. Posterior circulation: The origins of the vertebral arteries both appear patent. There is a right dominant vertebrobasilar system. The more superior extracranial portions of both vertebral arteries also demonstrate normal courses and calibers. They join to form a patent basilar artery. Soft tissues: Visualized neck soft tissues demonstrate no suspicious abnormalities. Bones: No suspicious bony lesions. Visualized cervical spine appears normally aligned. IMPRESSION: 1. No high-grade stenosis or occlusion of the central intracranial arteries. 2. No high-grade stenosis or occlusion of the head and neck arteries. There is mild right and minimal left narrowing in the carotid bulbs. 3. No definite acute intracranial abnormality. Multiple small cortical and subcortical left temporoparietal subacute to chronic infarcts redemonstrated. Any quantitative measurements of stenosis were performed using NASCET criteria. Dictated by: Mariano Cevallos M.D. on 01/04/2021 at 19:28 Approved by: Mariano Cevallos M.D. on 01/04/2021 at 19:34
[2021-01-04 19:13] LABS: Add Manual Diff / Slide Review NO; Basophils Absolute Auto 0 /uL (0-100); Basophils Percent Auto 0.5 % (0-2); Eosinophils Absolute Auto 100 /uL (0-450); Eosinophils Percent Auto 1.3 % (2-4); Hematocrit 38.8 % (36-46); Hemoglobin 12.9 g/dL (12.0-16.0); Lymphocytes Absolute Auto 1900 /uL (1100-4500); Lymphocytes Percent Auto 30.7 % (25-40); Mean Corpuscular HGB Conc 33.2 % (30-36); Mean Corpuscular Hemoglobin 33.3 PG (26-34); Mean Corpuscular Volume 100.4 fL (80-100); Monocytes Absolute Auto 400 /uL (0-900); Monocytes Percent Auto 6.8 % (3-14); Neutrophils Absolute Auto 3800 /uL (1500-7000); Neutrophils Percent Auto 60.7 % (50-75); Platelet Count 323 X10^3/uL (150-400); Red Blood Cell Count 3.87 X10^6/uL (4.0-5.2); Red Cell Distribution Width 13.5 % (11.6-14.8); White Blood Cell Count 6.2 X10^3/uL (4.5-11.0)
[2021-01-04 19:15] LABS: INR 0.9 (0.9-1.3); Prothrombin Time 10.6 SECONDS (10.1-12.7)
[2021-01-04 19:17] LABS: PTT Partial Thromboplastin Tim 31 SECONDS (26.4-36.2)
[2021-01-04 19:27] LABS: Alanine Aminotransferase 20 IU/L (<35); Albumin 4.3 g/dL (3.5-5.0); Albumin Globulin Ratio 1.7 (1.0-2.8); Alkaline Phosphatase 90 U/L (38-126); Aspartate Aminotransferase 26 IU/L (14-36); BUN Creatinine Ratio 20.3 (6-22); Bilirubin Total 0.5 mg/dL (0.2-1.3); Blood Urea Nitrogen 12 mg/dL (7-17); Calcium 9.3 mg/dL (8.4-10.2); Carbon Dioxide 21 mmol/L (22-32); Chloride 112 mmol/L (98-107); Creatine Kinase 58 U/L (30-135); Estimated Glomerular Filt Rate > 60.0 mL/min (>60); Globulin 2.6 g/dL (1.7-4.1); Glucose 97 mg/dL (80-110); HEMOLYSIS < 15 (0-50); Sodium 142 mmol/L (137-145); Total Protein 6.9 g/dL (6.3-8.2)
[2021-01-04 19:39] LABS: Troponin I < 0.012 ng/mL (0.01-0.034)
[2021-01-04] MEDS: SODIUM CHLORIDE 0.9% 1,000 ML 150 ML IV (19:45)
[2021-01-04 19:59] LABS: UR Morphine/Opiate cutoff 300 Negative (Negative); Ur Creatinine Normal (Normal); Ur Specific Gravity Normal (Normal); Urine Amphetamines Negative (Negative); Urine Barbiturates Negative (Negative); Urine Benzodiazepines Negative (Negative); Urine Cocaine Negative (Negative); Urine MDMA Negative (Negative); Urine Methadone Negative (Negative); Urine Methamphetamines Negative (Negative); Urine Oxycodone Negative (Negative); Urine Phencyclidine Negative (Negative); Urine Tetrahydrocannabinol Negative (Negative); Urine Tricyclic Antidepressant Negative (Negative); Urine pH Normal (Normal)
[2021-01-04] MEDS: MECLIZINE HCL 12.5 MG TABLET 25 MG PO (20:52)
--- NOTE | 2021-01-04 21:45 | PC.NURSE ---
Provider ok for patient to take own plavix and aspirin. Pt took 75mg of plavix and 324mg of aspirin at this time of her own medications.
--- NOTE | 2021-01-04 22:24 | PM.HP.1 ---
History of Present Illness History of Present Illness Date Patient Seen: 01/04/21 Time Patient Seen: 23:45 Chief complaint: states really high blood pressure and dizziness Narrative: Ms. 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 The patient reports that about 4:00 a.m. she began to feel dizzy with associated ataxia stated she felt like she was walking boat. She went to lay down and upon arising her symptoms had not abated. She checked her blood pressure and found to be in the 190s systolic prompting her to present to the ER for evaluation. The patient was admitted October 31 through the for speech difficulties and was diagnosed on MRI with a left temporoparietal CVA the patient was subsequently discharged has been speech therapy marked improvement with occasional word-finding difficulties. Patient also has a history peripheral vascular disease for which she was to stenting to the right leg and had been taken off her Plavix for 5 days. When she developed her symptoms this she restart Plavix at home. She has been on dual antiplatelet therapy. Patient has recent visual changes seeing halos around objects however no new changes so she ate it since onset of her dizziness. She denies headaches, nasal congestion or sore throat. She denies ear, mastoid or neck pain. She has had no complaints of chest pain denies palpitations. She denies shortness of breath cough or wheezing. She has had no epigastric or abdominal pain and reports no nausea vomiting and no changes in bowel or bladder habits. Until today the patient has ambulatory without difficulty no ataxia and using no assistive devices. Upon arrival to the ER the patient has a temperature 97.7?, heart rate 75, blood pressure 173/90, respirations of 18 there uncomplicated with oxygen saturation 97% on room air. A CT of the head and brain without contrast reveals small subacute to chronic cortical and subcortical infarcts that are redemonstrated in the left temporal parietal lobes. No acute hemorrhage or mass effect, no new infarct identified. A CTA was obtained which finds no high-grade stenosis or occlusion of the central intracranial or neck arteries, there is mild right and minimal left narrowing of the carotid bulbs. Otherwise no acute intracranial abnormality again noting multiple Kate cortical and subcortical left temporoparietal subacute to chronic infarcts. On laboratory analysis the patient has a normal white count 6.2, hemoglobin 12.9, hematocrit of 38.8 and platelets of 323. Her coagulation studies within normal limits as are her chemistries. She has a BUN of 12 and creatinine 0.59. Her nonfasting glucose is 97. Her liver functions are all within normal limits in urine tox screen is negative. She has a total CK of 58 and a troponin that is less than 0.012. In the ER the patient has administered aspirin 324 mg that is chewed as well as Plavix 75 mg and meclizine 25 mg. The patient had improvement in her dizziness with meclizine. The patient is admitted to the hospital related to concern for cerebellar CVA. Patient History Medical History Ankle pain (2015) Anxiety Cerebrovascular accident Chickenpox (1957) Colon polyps (2009) Depression Eating disorder Fractures GERD (gastroesophageal reflux disease) (2000) Heavy menstrual period (1979) Hemorrhoids (1980) Measles (1957) Mumps (1958) Numbness and tingling Painful menstrual periods PTSD (post-traumatic stress disorder) (2014) Seasonal allergies Substance abuse (2015) Surgical History History of back surgery (1989) History of Vaughn-en-Y gastric bypass (2008) History of surgery on arm (~2008) History of tonsillectomy and adenoidectomy (1959) Hx of cholecystectomy (~2012) Hx of hysterectomy (1981) Hx of knee surgery (2015) Hx of varicose veins (~1994) S/P epidural steroid injection (12/02/19) Family & Social History Family History Father Heart failure Hypertension Hyperlipidemia Mental health problem Substance abuse Depression Mother PAD (peripheral artery disease) Alzheimer's disease Hypertension Hyperlipidemia Mental health problem Osteoporosis Brother No problems noted. Grandfather Heart disease Grandmother Depression Grandfather Depression Grandmother Stroke Family/Other Depression ADHD (attention deficit hyperactivity disorder) Aspergers' syndrome Family/Other Anxiety Social History: household members spouse Safety & Behavioral: Feels Safe in Current Yes Environment Tobacco & Substance use: Tobacco type cigarettes Smoking Status Former smoker alcohol intake former alcohol intake frequency 0-2 drinks per day Substance Use Type does not use Meds Home Medications and Allergies Home Medications Medication Instructions Recorded Confirmed Type fcuhrmwd-prf-pwgah ac 400 1 tab PO DAILY tab 05/05/19 01/04/21 History mcg-calcium carb 500 mg-vit K1 20 mcg tablet omeprazole 20 mg PO BID 12/09/19 01/04/21 History aspirin 81 mg PO DAILY #30 tab 11/01/20 01/04/21 Rx atorvastatin [Lipitor] 20 mg PO BEDTIME #30 tab 11/01/20 01/04/21 Rx clopidogrel [Plavix] 75 mg PO DAILY #20 tab 11/01/20 01/04/21 Rx diphenhydramine-acetaminophen 1 tab PO BEDTIME PRN 01/04/21 01/04/21 History [Tylenol PM Extra Strength] eszopiclone [Lunesta] 2 mg PO BEDTIME 01/04/21 01/04/21 History Allergies Allergy/AdvReac Type Severity Reaction Status Date / Time adhesive tape Allergy Severe Itching Verified 01/04/21 18:32 w/prolonged use erythromycin base AdvReac Severe Stomach Verified 01/04/21 18:32 [ERYTHROMYCIN BASE] cramps Review of Systems Review of Systems ROS: Yes All systems reviewed with the patient and are negative except as otherwise documented Exam Vital Signs (past 8 hours): - 01/04/21 18:32 01/04/21 19:35 01/04/21 19:38 Temperature 97.7 F Pulse Rate 75 78 79 Respiratory Rate 18 17 Blood Pressure 173/90 H 192/98 H 172/81 H Pulse Oximetry 97 97 99 01/04/21 20:00 01/04/21 20:30 01/04/21 21:00 Temperature Pulse Rate 88 75 78 Respiratory Rate 13 14 51 H Blood Pressure 188/92 H 174/89 H 150/82 H Pulse Oximetry 98 97 97 01/04/21 21:30 01/04/21 21:31 01/04/21 21:40 Temperature Pulse Rate 70 73 89 Respiratory Rate 42 H 26 H 19 Blood Pressure 192/83 H Pulse Oximetry 96 96 98 01/04/21 22:00 01/04/21 22:01 Temperature Pulse Rate 82 85 Respiratory Rate 22 34 H Blood Pressure 167/70 H Pulse Oximetry 97 97 Oxygen Delivery Method Room Air Narrative Exam Narrative: GENERAL APPEARANCE: well developed, well nourished, sitting up in bed in no acute distress. HEENT: Symmetrical facies, PERRLA, conjunctiva clear, EOMs intact without nystagmus, mild dizziness a listed with bilateral head movement no sinus tenderness to percussion, no rhinorrhea, mucous membranes are moist and pink NECK/THYROID: Tight perispinal muscles that are nontender to palpation, no JVD, no carotid bruit, no thyromegaly, trachea midline. LYMPH NODES: no cervical or supraclavicular lymphadenopathy. SKIN: [place], warm and dry, no visible lesions, rashes, ulcerations or petechiae. HEART: regular rate and rhythm, S1-S2, 2/6 systolic murmur, no rubs or gallops, brisk capillary refill, no edema LUNGS: clear to auscultation bilaterally, no coarseness crackles or wheezing, no cough present CHEST: Symmetrical movement, no accessory muscle use, good tidal volume. ABDOMEN: Soft, no distention, no abdominal tenderness, no guarding or peritoneal signs, no organomegaly, no flank or suprapubic tenderness, active bowel tones. BACK: Normal curvature, nontender to palpation, no CVA tenderness on percussion EXTREMITIES: moves all extremities, strength is 5/5 and symmetrical, no deformities or joint effusions no clubbing or cyanosis. NEUROLOGIC: AAO x4, NIH score is 0, patient has freely conversant without dysphagia occasional delay in word finding but no overt aphasia or apraxias, cranial nerves II-XII grossly intact, sensation intact to light touch, hearing grossly normal to speech. PSYCH: Good eye contact, linear thought process, cooperative, appropriate mood and affect, stable behavior. Objective Labs Result Diagrams: 01/04/21 18:58 01/04/21 18:58 Labs: Laboratory Results - last 24 hr 01/04/21 01/04/21 01/04/21 18:58 18:58 18:58 WBC 6.2 RBC 3.87 L Hgb 12.9 Hct 38.8 MCV 100.4 H MCH 33.3 MCHC 33.2 RDW 13.5 Plt Count 323 Neut % (Auto) 60.7 Lymph % (Auto) 30.7 [place] % (Auto) 6.8 Eos % (Auto) 1.3 L Baso % (Auto) 0.5 Neut # (Auto) 3800 Lymph # (Auto) 1900 [place] # (Auto) 400 Eos # (Auto) 100 Baso # (Auto) 0 PT 10.6 INR 0.9 APTT 31 D Sodium 142 Potassium 4.0 Chloride 112 H Carbon Dioxide 21 L BUN 12 Creatinine 0.59 Estimated GFR > 60.0 BUN/Creatinine Ratio 20.3 Glucose 97 Calcium 9.3 Total Bilirubin 0.5 AST 26 ALT 20 Alkaline Phosphatase 90 Total Creatine Kinase 58 CK-MB (CK-2) TNP CK-MB (CK-2) Rel Index TNP Troponin I < 0.012 Total Protein 6.9 Albumin 4.3 Globulin 2.6 Albumin/Globulin Ratio 1.7 U Opiates 300ng/mL cut Ur Oxycodone Screen Urine Methadone Screen Ur Barbiturates Screen U Tricyclic Antidepress Ur Phencyclidine Scrn Ur Amphetamines Screen U Methamphetamines Scrn Ur MDMA Scrn (Ecstasy) U Benzodiazepines Scrn Urine Cocaine Screen U Marijuana (THC) Screen 01/04/21 19:40 WBC RBC Hgb Hct MCV MCH MCHC RDW Plt Count Neut % (Auto) Lymph % (Auto) [place] % (Auto) Eos % (Auto) Baso % (Auto) Neut # (Auto) Lymph # (Auto) [place] # (Auto) Eos # (Auto) Baso # (Auto) PT INR APTT Sodium Potassium Chloride Carbon Dioxide BUN Creatinine Estimated GFR BUN/Creatinine Ratio Glucose Calcium Total Bilirubin AST ALT Alkaline Phosphatase Total Creatine Kinase CK-MB (CK-2) CK-MB (CK-2) Rel Index Troponin I Total Protein Albumin Globulin Albumin/Globulin Ratio U Opiates 300ng/mL cut Negative Ur Oxycodone Screen Negative Urine Methadone Screen Negative Ur Barbiturates Screen Negative U Tricyclic Antidepress Negative Ur Phencyclidine Scrn Negative Ur Amphetamines Screen Negative U Methamphetamines Scrn Negative Ur MDMA Scrn (Ecstasy) Negative U Benzodiazepines Scrn Negative Urine Cocaine Screen Negative U Marijuana (THC) Screen Negative Assessment & Plan Assessment & Plan narrative: This is a 65-year-old female patient with a past medical history significant for 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 The patient has had prior CVA and been taken off Plavix for 5 days while continuing aspirin in anticipation of right leg vascular intervention with stenting for PVD. 1. Dizziness acute, present on admission, active -patient with prior temporoparietal CVA 2 months ago with concern for possible cerebellar infarct after being taken off her dual antiplatelet therapy. -in the ER aspirin 324 mg is administered, will continue aspirin 81 mg daily. -in the ER the patient received Plavix 75 mg, will continue Plavix 75 mg daily. -will continue patient's home regimen of atorvastatin 10 mg daily. -patient received meclizine 25 mg in the emergency department with improvement in dizziness. Will continue meclizine every 6 hours as needed for dizziness. -will obtain MRI stroke protocol in the morning -will recheck lipid panel, TSH and hemoglobin A1c. -requested PT. OT and ST to consult evaluate and treat. 2. Temporal parietal CVA, subacute (10/31/2020), stable. -patient describes no physical limitations as a sequelae of her stroke. She endorses continuing with speech therapy is very pleased with her progress with only occasional word-finding difficulties. 3. Peripheral vascular disease, chronic, stable. -patient reports right thigh pain that is chronic associated with her vascular disease. Patient was scheduled for interventional procedure and taken off Plavix. -ordered Tylenol 975 mg every 8 hours as needed for pain. -ordered tramadol 50 mg 3 times daily as needed for moderate pain. 4. GERD, status post gastric bypass, chronic, stable. -patient takes omeprazole 20 mg twice daily at home ordered pantoprazole 20 mg IV twice daily. VTE prophylaxis: Enoxaparin IV fluid: Saline lock Diet: Heart healthy Code status: Full code, she designates her son to be her surrogate decision maker. The patient is admitted to the hospital for further evaluation monitoring with concern for possible cerebellar CVA in the setting of recent stroke and being off Plavix for 5 days. The patient is admitted as observation status with expected length of stay to be less than 2 midnights. COVID-19 COVID-19 status: Negative Result date/Date tested (Pos, Neg/Pending): 01/04/21 Scores GCS [place] coma scale eye opening: Spontaneous [place] coma scale verbal response: Orientated Radha coma scale motor response: Obey commands Radha coma scale total score: 15 NIHSS Level of Conciousness: Alert, keenly responsive Ask month/age: Answers both questions correctly. Open/close eyes, close hand: Performs both tasks correctly Best gaze horizontal: Normal Visual [place]: No visual loss Facial palsy: Normal symetrical movement Left arm drift: No drift for full 10 sec Right arm drift: No drift for full 10 sec Left leg drift: No drift for full 5 sec Right leg drift: No drift for full 5 sec Limb ataxia: Absent Sensory on face/arms/legs: Normal, no sensory loss Best language: No aphasia, normal Dysarthria: Normal Extinction or inattention: No abnormality Total NIH Stroke scale score: 0
--- NOTE | 2021-01-04 22:25 | DI.MRI.S_ITS ---
PROCEDURE: MR STROKE Pre- and post-contrast brain MRI, non-contrast brain MR angiogram, pre- and postcontrast neck MR angiogram INDICATIONS: Acute onset dizziness, CVA TECHNIQUE: Brain: Noncontrast axial T1 spin echo, axial T2 fast spin echo, sagittal and axial FLAIR, coronal T2 fast spin echo, axial gradient echo, axial diffusion and ADC through the brain. After the administration of contrast, axial 3D VIBE of the cranial vasculature and brain. Brain MRA: Non-contrast 3-D time of flight MR angiogram, with multiple mkwfppm-tnoayvgol-zwplmubkiz (MIP) reformats performed. Neck MRA: Axial and sagittal TruFISP through the neck. Coronal dynamic MR angiogram during administration of contrast in the arterial and venous phases, with 3-dimenstional ocnsdii-flzbkgwrr-vaornyvtue (MIP) reformats constructed from subtraction images. COMPARISON: [facility], CT, CT ANGIO HEAD AND NECK, 01/04/2021, 19:02. FINDINGS: Image quality: Excellent. BRAIN: CSF spaces: Ventricles are normal in size and shape. Basal cisterns are patent. No extra-axial fluid collections. Brain: No intracranial bleeds or mass effects. [place]-white matter interface is normal. No restricted diffusion. There is increased T2 signal and gyral enhancement noted in the posterior left temporal lobe and left occipital lobe compatible concerning for late subacute infarcts. Brainstem appears normal. Normal intravascular flow voids are present. Dural sinuses demonstrate normal postcontrast enhancement. No abnormal intracranial enhancement. Skull and face: Calvarial marrow signal is normal. Orbits appear normal. Sinuses: Sinuses and mastoids are clear. BRAIN MR ANGIOGRAM: Anterior circulation: Intracranial internal carotid arteries are normal in size and enhancement. Mild irregularity noted in the cavernous segments of the internal carotid arteries bilaterally which does not cause measurable stenosis. The flow within the paired anterior cerebral arteries is normal and symmetric. The flow within the middle cerebral arteries is normal and symmetric. The anterior communicating artery is seen. No stenoses, occlusions, or aneurysms. Posterior circulation: The visualized portions of the vertebral arteries demonstrate normal caliber, and join to form a normal appearing basilar artery. The flow within the posterior cerebral arteries is normal and symmetric. No stenoses, occlusions, or aneurysms. NECK MR ANGIOGRAM: Carotids: Great vessels demonstrate a conventional anatomy as they arise from the aortic arch. The origins of the common carotid arteries appear patent. The calibers and courses of both common carotid arteries are normal. Mild atherosclerotic irregularity noted in the origins of the internal carotid arteries bilaterally which causes less than 50% narrowing of the vessels. Posterior circulation: The origins of the vertebral arteries appear patent. More superior portions of both vertebral arteries demonstrate normal course and caliber, and join to form a normal appearing basilar artery. Miscellaneous: Subclavian arteries appear patent. Pre-contrast images through the neck show no soft tissue abnormalities. IMPRESSION: BRAIN MRI: 1. Increased T2 signal and gyral enhancement without associated restricted diffusion involving the posterior left temporal lobe and left occipital lobe which likely represents late subacute infarcts. Recommend repeat MRI of the brain with and without contrast in 1 month to assess for expected evolution of infarcts and to exclude other etiologies. 2. No abnormal intracranial mass or mass effect. 3. No intracranial hemorrhage. BRAIN MR ANGIOGRAM: Normal MR angiogram of the head. NECK MR ANGIOGRAM: 1. Less than 50% stenosis of the origins of the internal carotid arteries bilaterally. 2. Vertebral arteries are fully patent. Dictated by: Lay Coffman MD, PhD on 01/05/2021 at 11:20 Approved by: Lay Coffman MD, PhD on 01/05/2021 at 11:31
[2021-01-04 22:32] LABS: COVID19 - ADMIT (NP swab/PCR) Negative (Negative)
--- NOTE | 2021-01-04 22:32 | DI.ECHO.S_ITS ---
[facility]---------+ [facility] +---------+ : : [address] : : : : [id number] : : : : Phone: [phone]+ Echocardiogram Report + + :Name: OLIVIA TRAN Study Date: 01/05/2021 Height: 63 in : :[facility] ReadingLocation: Weight: 160 lb : : Gender: Female BSA: 1.8 m2 : :: 1955 Age: 65 yrs BP: 162/90 mmHg: :Reason For Study: CVA : :Ordering Physician: ZENA : :CARMELA Performed By: Inder Rollins : :Referring: CARMELA FREITAS : + + Interpretation Summary Left ventricular systolic function is normal. The ejection fraction is estimated to be 55-60%. Injection of contrast with valsalva documented an interatrial shunt. Procedure: A two-dimensional transthoracic echocardiogram with color flow and Doppler was performed in limited views only. The study quality was technically adequate. Comparison is made with the echocardiogram of 11/01/2020. The patient was in sinus rhythm with heart rates between 62-72 bpm during the exam. Left Ventricle: The left ventricle is normal in size and wall thickness. Left ventricular systolic function is normal. The ejection fraction is estimated to be 55-60%. There are no focal wall motion abnormalities. Right Ventricle: The right ventricle is normal in size and function. Atria: Both atria are normal in size. Injection of contrast with valsalva documented an interatrial shunt. Pericardium/ Pleura There is no pericardial effusion. There is no pleural effusion. MMode/2D Measurements & Calculations LVIDd: 5.1 cm LA A2 area: 13.4 cm2 LVIDs: 3.4 cm LA A4 area: 17.4 cm2 FS: 34.1 % LA length (vol): 4.2 cm IVSd: 0.94 cm LA vol: 46.9 ml LVPWd: 0.82 cm LA vol index: 26.7 ml/m2 LV spear. diameter/BSA (cm/m^2): 2.9 LV sys. diameter/BSA (cm/m^2): 1.9 RA long axis: 4.3 cm RVD1 (basal): 3.7 cm RA area: 13.0 cm2 RA vol: 33.6 ml RA : 19.1 ml/m2 Reading Physician:01:32 PM
[2021-01-05] MEDS: ACETAMINOPHEN 325 MG TABLET 975 MG PO ×2 (00:58→09:50)
[2021-01-05] MEDS: PANTOPRAZOLE 40 MG VIAL 20 MG IV ×2 (01:03→08:03)
[2021-01-05] MEDS: SODIUM CHLORIDE 0.9% FLUSH 10 ML IV ×2 (01:04→08:04)
--- NOTE | 2021-01-05 01:09 | PC.NURSE ---
Addendum entered by Pamela Cox R.N. 01/05/21 06:29: Slept most of night. Neuro check at 0300 was WNL. Denies any dizziness this morning but does complain of 4/10 headache so medicated with Tramadol. Original Note: patient is alert and oriented with NIH of 0. Breath sounds CTA with RA sat of 97%. HRR but has elevated BP of 162/90 but is actually improved from ER readings. Telemetry reading was SR. Denies nausea. BT present and abdomen is soft. Denies dysuria, frequency or urgency with urination. Able to turn herself in bed. Up with SBA as admitted due to dizziness. Bilateral calf SCD's applied at shift change. Complains of annoying bilateral chronic leg pain so medicated with Tylenol. Fall risk score is low.
[2021-01-05 03:16] VITALS: BP 122/72; PULSE 80; RESP 16; TEMP 36.6; O2SAT 97
[2021-01-05 05:45] LABS: Add Manual Diff / Slide Review NO; Basophils Absolute Auto 100 /uL (0-100); Basophils Percent Auto 1.4 % (0-2); Eosinophils Absolute Auto 100 /uL (0-450); Eosinophils Percent Auto 2.9 % (2-4); Hematocrit 34.1 % (36-46); Hemoglobin 11.5 g/dL (12.0-16.0); Lymphocytes Absolute Auto 1600 /uL (1100-4500); Lymphocytes Percent Auto 33.1 % (25-40); Mean Corpuscular HGB Conc 33.8 % (30-36); Mean Corpuscular Hemoglobin 33.9 PG (26-34); Monocytes Absolute Auto 400 /uL (0-900); Monocytes Percent Auto 7.7 % (3-14); Neutrophils Absolute Auto 2600 /uL (1500-7000); Neutrophils Percent Auto 54.9 % (50-75); Platelet Count 292 X10^3/uL (150-400); Red Blood Cell Count 3.41 X10^6/uL (4.0-5.2); Red Cell Distribution Width 13.3 % (11.6-14.8); White Blood Cell Count 4.7 X10^3/uL (4.5-11.0)
[2021-01-05 06:07] LABS: Hemoglobin A1C% w Est Avg Glu 5.3 % (4.0-6.0)
[2021-01-05 06:10] LABS: BUN Creatinine Ratio 24.5 (6-22); Blood Urea Nitrogen 13 mg/dL (7-17); Calcium 8.8 mg/dL (8.4-10.2); Carbon Dioxide 22 mmol/L (22-32); Chloride 112 mmol/L (98-107); Cholesterol 133 mg/dL (140-199); Estimated Glomerular Filt Rate > 60.0 mL/min (>60); Glucose 98 mg/dL (80-110); HDL Cholesterol 70 mg/dL (40-60); HEMOLYSIS < 15 (0-50); LDL Cholesterol Calculated 40 mg/dL (<100); Potassium 3.6 mmol/L (3.4-5.1); Sodium 139 mmol/L (137-145); Triglycerides 113 mg/dL (35-150)
[2021-01-05] MEDS: TRAMADOL 50 MG TABLET PO ×2 (06:26→12:13)
[2021-01-05 07:48] VITALS: BP 128/81; PULSE 70; RESP 20; TEMP 36.2; O2SAT 96
[2021-01-05] MEDS: MECLIZINE HCL 12.5 MG TABLET 25 MG PO (08:03)
[2021-01-05] MEDS: CLOPIDOGREL 75 MG TABLET PO (08:03)
[2021-01-05] MEDS: ASPIRIN EC 81 MG TABLET PO (08:03)
[2021-01-05] MEDS: ENOXAPARIN 40 MG/0.4 ML SYRINGE SUBCUT (08:03)
[2021-01-05 08:54] VITALS: O2SAT 98
--- NOTE | 2021-01-05 09:39 | SLP.IPNOTE ---
Order received for ST. met with pt and discussed her current status. Pt reported that she is receiving speech therapy and has made a big improvement. Informal assessment indicated improved word-finding and communication ability since last admission. Will d/c order
--- NOTE | 2021-01-05 10:04 | PT.IIE ---
Surgical History (Last Reviewed 01/05/21 @ 00:52 by WILFRIDO Pickering) History of back surgery (1989) History of Vaughn-en-Y gastric bypass (2008) History of surgery on arm (~2008) History of tonsillectomy and adenoidectomy (1959) Hx of cholecystectomy (~2012) Hx of hysterectomy (1981) Hx of knee surgery (2015) Hx of varicose veins (~1994) S/P epidural steroid injection (12/02/19) Medical History (Last Reviewed 01/05/21 @ 00:52 by WILFRIDO Pickering) Ankle pain (2015) Anxiety Cerebrovascular accident Chickenpox (1957) Colon polyps (2009) Depression Eating disorder Fractures GERD (gastroesophageal reflux disease) (2000) Heavy menstrual period (1979) Hemorrhoids (1980) Measles (1957) Mumps (1958) Numbness and tingling Painful menstrual periods PTSD (post-traumatic stress disorder) (2014) Seasonal allergies Substance abuse (2015) Physical Therapy Inpatient Evaluation/Re-Eval M1 PT/OT-IP Prior Functional Status Start: 01/05/21 12:17 Freq: NEEDED Status: Active Protocol: Document 01/05/21 10:04 AB (Rec: 01/05/21 12:39 AB [id number]) Medical Review Prior Functional Status Medical History Reviewed Yes Communication able to make needs known Mobility and Gait pt stated that she is independent with all mobilities and ambulation using SPC indoors and uses trekking pole for outdoor mobility. stated that she had R hip surgery last oct and is still recovering and feels more comfortable using SPC/ trekking poles for safety. pt takes care of her spouse that has [place] Social History Household Members spouse Living Arrangements House Number of Floors (Floors) One Floor Number of Stairs To Enter/Railing? 1 step to enter Home Environment Standard Height Toilet,Walk in Shower Home Equipment Straight Cane,Shower Seat without Backrest,Hand Held Shower,Grab Bars Near Toilet, Grab Bars In Shower Additional Social History Comment has trekking poles M2 PT-IP Current Condition Start: 01/05/21 12:17 Freq: NEEDED Status: Active Protocol: Document 01/05/21 10:04 AB (Rec: 01/05/21 12:39 AB [id number]) Physical Therapy Current Condition Current Condition Evaluation Date 01/05/21 Treatment Diagnosis brain TIA; difficulty in walking Onset Date 01/04/21 M3 PT-IP Subjective Start: 01/05/21 12:17 Freq: NEEDED Status: Active Protocol: Document 01/05/21 10:04 AB (Rec: 01/05/21 12:39 AB [id number]) Subjective Physical Therapy Visit Type Type Initial Evaluation Visit Start Time 10:04 Visit Stop Time 10:25 Total Visit Minutes 21 Number of NETBACKUP ADMIN Visits 0 Physical Therapy Visit Comments Patient Comments pt is agreeable to do PT Therapy Pain Assessment Location Right Groin Scale Used pain scale not stated Head Scale Used stated slight heaviness on head M4 PT-IP Mobility and Gait Start: 01/05/21 12:17 Freq: NEEDED Status: Active Protocol: Document 01/05/21 10:04 AB (Rec: 01/05/21 12:39 AB [id number]) PT-Bed Mobility Assessment Supine to Sit Supine to Sit Independent Sit to Supine Sit to Supine Independent PT-Transfer Assessment Sit to and From Stand Sit to and from Stand Independent Equipment Transfer Assistive Device None Transfers Transfer Destination Bed,Chair Transfer Technique ambulated without AD Transfer Ability Level of Assist Independent Comments Mobility Comments pt sitting on window bench. completed sit to stand mod i and ambulated to the bed mod I . completed sit<>supine mod I. agreed to ambulate in the hallway. pt stated that has had previous R hip surgery and has PVD on RLE with groin pain and is more comfortable using her trekking pole for ambulation. ambulated in the hallway 125 ft using trekking pole SBA. presents with antalgic gait but without LOB. completed up/down platform step SBA. ambulated back to her room. completed tinetti balance assessment: balance score 14/16 gait score: 11/12 total score 25/28 which relates to low fall risk. informed pt regarding PT and agreed that she is moving at prior level and not PT needed at this time. informed nurse. will d/c PT. Gait Assessment Gait Gait Assistance Required: Standby Assistance Distance (Feet) 125 Able to Maintain Weight Bearing Status Yes During Gait Assistive Devices Assistive Device Gait Belt,Straight Cane Gait Deviations General Gait Pattern Antalgic Factors Limiting Gait Function Factors Limiting Gait Function Pain Comments Gait Comments used her trekking pole during ambulation Stair Climbing Assessment Evaluation Level of Assist On Stairs Standby Assistance Devices Stair Climbing Assistive Devices Straight Cane Technique/Endurance Stair Climbing Direction Ascend and Descend Stair Climbing Technique Step to Step Number of Steps Climbed 1 Query Text: Stair Climbing Set # Repetitions (reps) 1 PT-Balance Assessment Sitting Balance and Reactions Static Sitting Balance Ability Normal Dynamic Sitting Balance Ability Normal Standing Balance and Reactions Static Standing Balance Ability Good Dynamic Standing Balance Ability Good Device Used without AD M5 PT-IP Objective Assessments Start: 01/05/21 12:17 Freq: NEEDED Status: Active Protocol: Document 01/05/21 10:04 AB (Rec: 01/05/21 12:39 AB [id number]) Orientation Orientation/Cognition Level of Alertness Alert Orientation Name,Place,Situation Safety Awareness Understands Safety Issues Memory Description No Deficits Noted Gross Range of Motion Lower Extremity ROM Assessment Within Functional Limits Strength Lower Extremity Strength Assessment Within Functional Limits Muscle Tone Muscle Tone WNL Yes M6 PT-IP Treatment Start: 01/05/21 12:17 Freq: NEEDED Status: Active Protocol: Document 01/05/21 10:04 AB (Rec: 01/05/21 12:39 AB [id number]) Physical Therapy Treatment Education Education Provided Safety M7 PT-IP Assessment and Plan Start: 01/05/21 12:17 Freq: NEEDED Status: Active Protocol: Document 01/05/21 10:04 AB (Rec: 01/05/21 12:39 AB [email or web address]) PT Summary Assessment and Plan Potential Rehabilitation Potential Good Status of Condition at Evaluation Stable Summary Impairments Pain,Strength,Balance,Gait, Activity Tolerance Assessment Summary pt is modified independent with bed mobility, transfers and short distance ambulation. supervision for long distance using SPC/trekking pole for safety while in the hospital. informed nurse regarding pt's mobility and no further PT intervention needed at this time. will d/c PT Frequency of Treatment Frequency Of Treatment Discharge Recommendations To Nursing Amount of Assist Needed Standby Assistance Discharge Recommendations PT Discharge Recommendations Home Transportation Needs at Discharge Private Vehicle
[2021-01-05 11:38] VITALS: BP 159/85; PULSE 72; RESP 22; TEMP 36.6; O2SAT 98
[2021-01-05 12:00] VITALS: O2SAT 98
[2021-01-05 13:17] VITALS: BP 118/70; PULSE 71
--- NOTE | 2021-01-05 13:30 | OT.IPNOTE ---
Pt approached for OT eval and pt states does not want OT or have any issues at this time. Therefore discharge OT eval orders.
--- NOTE | 2021-01-05 13:43 | PC.NURSE ---
Day note: Patient discharge home per MD order, cleared by PT. No motor or sensory deficits noted, intermittent word finding difficulty, unchanged from previous stroke. Ambulating in room independently, dressed self. BP 118/70 HR 80. Minimal dizziness, relieved by Meclizine. Discussed importance of F/U with Dr. Beck, s/sx of stroke, home safety precautions, and new medications.
--- NOTE | 2021-01-05 14:48 | CM.DANOTE ---
Discharge Planning/Care Management DCP: assessment: case received and met with pt during Team Rounds. Introduced self and role. At that time pt was up and independent in the room, waiting for MRI. She was hoping she would be cleared for home later today and said her neighbor would be picking her up. She reports her is chronically ill and current in hopital/see below template. Their son Bradley lives in the duplex attached to theirs and she reports he is of great support to both her and her spouse. A check in later reveals a d/c order and pt was d/c'd home. Payer: Medicare/ Admitted to hospitalist. PCP: Pamela Beck. Discharge Assessment Start: 01/05/21 14:45 Freq: Status: Active Protocol: Document 01/05/21 14:45 ITV (Rec: 01/05/21 14:48 ITV [id number]) Discharge Planning Assessment Advance Directives? Yes Advance Directives on File No History Provided By Patient,Medical Record Prior Living Arrangements House Household Members spouse Comment Spouse is ill and currently at [facility]/since Monday 01/01 Independent with ADL's Yes Is patient alert and oriented? Yes Review Status In Process
--- NOTE | 2021-01-05 15:35 | PC.NURSE ---
Discharge Note Patient A&O, VSS, RA. No complaints of pain or discomfort. Tele/PIV discontinued by day shift nurse. Patient discharged by day shift nurse. All Belongings packed and given to patient along with discharge packet. Patient taken down via wheelchair by floor staff to ER to await transportation.
--- NOTE | 2021-01-05 15:59 | PM.DS.1 ---
History of Present Illness History of Present Illness Chief complaint: states really high blood pressure and dizziness Narrative: Per H and P from Ken Walters 01/04/21: Ms. 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 The patient reports that about 4:00 a.m. she began to feel dizzy with associated ataxia stated she felt like she was walking boat. She went to lay down and upon arising her symptoms had not abated. She checked her blood pressure and found to be in the 190s systolic prompting her to present to the ER for evaluation. The patient was admitted October 31 through the for speech difficulties and was diagnosed on MRI with a left temporoparietal CVA the patient was subsequently discharged has been speech therapy marked improvement with occasional word-finding difficulties. Patient also has a history peripheral vascular disease for which she was to stenting to the right leg and had been taken off her Plavix for 5 days. When she developed her symptoms this she restart Plavix at home. She has been on dual antiplatelet therapy. Patient has recent visual changes seeing halos around objects however no new changes so she ate it since onset of her dizziness. She denies headaches, nasal congestion or sore throat. She denies ear, mastoid or neck pain. She has had no complaints of chest pain denies palpitations. She denies shortness of breath cough or wheezing. She has had no epigastric or abdominal pain and reports no nausea vomiting and no changes in bowel or bladder habits. Until today the patient has ambulatory without difficulty no ataxia and using no assistive devices. Upon arrival to the ER the patient has a temperature 97.7?, heart rate 75, blood pressure 173/90, respirations of 18 there uncomplicated with oxygen saturation 97% on room air. A CT of the head and brain without contrast reveals small subacute to chronic cortical and subcortical infarcts that are redemonstrated in the left temporal parietal lobes. No acute hemorrhage or mass effect, no new infarct identified. A CTA was obtained which finds no high-grade stenosis or occlusion of the central intracranial or neck arteries, there is mild right and minimal left narrowing of the carotid bulbs. Otherwise no acute intracranial abnormality again noting multiple Kate cortical and subcortical left temporoparietal subacute to chronic infarcts. On laboratory analysis the patient has a normal white count 6.2, hemoglobin 12.9, hematocrit of 38.8 and platelets of 323. Her coagulation studies within normal limits as are her chemistries. She has a BUN of 12 and creatinine 0.59. Her nonfasting glucose is 97. Her liver functions are all within normal limits in urine tox screen is negative. She has a total CK of 58 and a troponin that is less than 0.012. In the ER the patient has administered aspirin 324 mg that is chewed as well as Plavix 75 mg and meclizine 25 mg. The patient had improvement in her dizziness with meclizine. The patient is admitted to the hospital related to concern for cerebellar CVA. Discharge Providers Provider Date of admission: 01/04/21 21:45 Discharge Date: 01/05/21 Primary care physician: Pamela Beck DO Consults: 01/04/21 22:25 Consult to Discharge Planning Routine Comment: Consult to Occupational Therapy Evaluate & Treat Comment: Physician Instructions: Evaluate and treat Consult to Physical Therapy Evaluate & Treat Comment: Physician Instructions: Evaluate and Treat Consult to Speech Therapy Evaluate & Treat Comment: Physician Instructions: Evaluate and treat Discharge provider: Ruben Echevarria MD Summary Hospital Course Discharge Diagnosis: 1. Vertigo 2. Elevated blood pressure 3. Temporal parietal CVA in October 2020 4. Peripheral vascular disease 5. GERD 6. Anemia, mild Hospital Course: 65-year-old woman who presented with new onset vertigo and noted hypertension at home. She had recently been off her Plavix for planned angioplasty. Initially there was concern for a stroke so she had CT scan done that did not show any evidence of acute stroke. Her vertigo improved with meclizine. She has been admitted for possible TIA. She had MRI done did not show any acute stroke. Echo was done that did not show any acute findings. She was already on aspirin and Plavix in the setting of recent stroke and also peripheral vascular disease and these were continued. Her atorvastatin was decreased increased to 40 mg daily. She was given as a prescription for meclizine as needed for vertigo. The rest of her medical issues remained stable in the hospital. Status at Discharge Cognitive/behavioral status at discharge: oriented Functional status at discharge: independent ambulation Overall status at discharge: patient is back to baseline Exam Vital Signs (past 8 hours): - 04/09/21 08:54 01/05/21 11:38 01/05/21 12:00 Temperature 97.8 F Pulse Rate 72 Respiratory Rate 22 Blood Pressure 159/85 H Pulse Oximetry 98 98 98 01/05/21 13:17 Temperature Pulse Rate 71 Respiratory Rate Blood Pressure 118/70 Pulse Oximetry Oxygen Delivery Method Room Air Oxygen Flow Rate 0 Narrative Exam Narrative: GENERAL APPEARANCE: well developed, well nourished, sitting up in bed in no acute distress. HEENT: PERRL, conjunctiva clear,mucous membranes are moist and pink NECK/THYROID: Tight perispinal muscles that are nontender to palpation, no JVD, no carotid bruit, no thyromegaly, trachea midline. SKIN: [place], warm and dry, no rashes HEART: regular rate and rhythm, S1-S2, 2/6 systolic murmur, no rubs or gallops, brisk capillary refill, no edema LUNGS: clear to auscultation bilaterally, no coarseness crackles or wheezing, no cough present ABDOMEN: Soft, no distention, no abdominal tenderness, no guarding or peritoneal signs, no organomegaly, no flank or suprapubic tenderness, active bowel tones. EXTREMITIES: moves all extremities, strength is 5/5 and symmetrical NEUROLOGIC: AAO x4, NIH score is 0, delay in word finding but no overt aphasia or apraxias, cranial nerves II-XII grossly intact, sensation intact to light touch PSYCH: cooperative, appropriate mood and affect, stable behavior. Objective Labs Result Diagrams: 01/05/21 05:33 01/05/21 05:33 Labs: Laboratory Results - last 24 hr 01/04/21 01/04/21 01/04/21 18:58 18:58 18:58 WBC 6.2 RBC 3.87 L Hgb 12.9 Hct 38.8 MCV 100.4 H MCH 33.3 MCHC 33.2 RDW 13.5 Plt Count 323 Neut % (Auto) 60.7 Lymph % (Auto) 30.7 [place] % (Auto) 6.8 Eos % (Auto) 1.3 L Baso % (Auto) 0.5 Neut # (Auto) 3800 Lymph # (Auto) 1900 [place] # (Auto) 400 Eos # (Auto) 100 Baso # (Auto) 0 PT 10.6 INR 0.9 APTT 31 D Sodium 142 Potassium 4.0 Chloride 112 H Carbon Dioxide 21 L BUN 12 Creatinine 0.59 Estimated GFR > 60.0 BUN/Creatinine Ratio 20.3 Glucose 97 Hemoglobin A1c Calcium 9.3 Magnesium Total Bilirubin 0.5 AST 26 ALT 20 Alkaline Phosphatase 90 Total Creatine Kinase 58 CK-MB (CK-2) TNP CK-MB (CK-2) Rel Index TNP Troponin I < 0.012 Total Protein 6.9 Albumin 4.3 Globulin 2.6 Albumin/Globulin Ratio 1.7 Triglycerides Cholesterol LDL Cholesterol, Calc HDL Cholesterol TSH U Opiates 300ng/mL cut Ur Oxycodone Screen Urine Methadone Screen Ur Barbiturates Screen U Tricyclic Antidepress Ur Phencyclidine Scrn Ur Amphetamines Screen U Methamphetamines Scrn Ur MDMA Scrn (Ecstasy) U Benzodiazepines Scrn Urine Cocaine Screen U Marijuana (THC) Screen SARS-CoV-2 (PCR) 01/04/21 01/04/21 01/04/21 18:58 19:40 21:45 WBC RBC Hgb Hct MCV MCH MCHC RDW Plt Count Neut % (Auto) Lymph % (Auto) [place] % (Auto) Eos % (Auto) Baso % (Auto) Neut # (Auto) Lymph # (Auto) [place] # (Auto) Eos # (Auto) Baso # (Auto) PT INR APTT Sodium Potassium Chloride Carbon Dioxide BUN Creatinine Estimated GFR BUN/Creatinine Ratio Glucose Hemoglobin A1c Calcium Magnesium 2.0 Total Bilirubin AST ALT Alkaline Phosphatase Total Creatine Kinase CK-MB (CK-2) CK-MB (CK-2) Rel Index Troponin I Total Protein Albumin Globulin Albumin/Globulin Ratio Triglycerides Cholesterol LDL Cholesterol, Calc HDL Cholesterol TSH U Opiates 300ng/mL cut Negative Ur Oxycodone Screen Negative Urine Methadone Screen Negative Ur Barbiturates Screen Negative U Tricyclic Antidepress Negative Ur Phencyclidine Scrn Negative Ur Amphetamines Screen Negative U Methamphetamines Scrn Negative Ur MDMA Scrn (Ecstasy) Negative U Benzodiazepines Scrn Negative Urine Cocaine Screen Negative U Marijuana (THC) Screen Negative SARS-CoV-2 (PCR) Negative 01/05/21 01/05/21 01/05/21 05:33 05:33 05:33 WBC 4.7 RBC 3.41 L Hgb 11.5 L Hct 34.1 L MCV 100.0 MCH 33.9 MCHC 33.8 RDW 13.3 Plt Count 292 Neut % (Auto) 54.9 Lymph % (Auto) 33.1 [place] % (Auto) 7.7 Eos % (Auto) 2.9 Baso % (Auto) 1.4 Neut # (Auto) 2600 Lymph # (Auto) 1600 [place] # (Auto) 400 Eos # (Auto) 100 Baso # (Auto) 100 PT INR APTT Sodium 139 Potassium 3.6 Chloride 112 H Carbon Dioxide 22 BUN 13 Creatinine 0.53 Estimated GFR > 60.0 BUN/Creatinine Ratio 24.5 H Glucose 98 Hemoglobin A1c 5.3 Calcium 8.8 Magnesium Total Bilirubin AST ALT Alkaline Phosphatase Total Creatine Kinase CK-MB (CK-2) CK-MB (CK-2) Rel Index Troponin I Total Protein Albumin Globulin Albumin/Globulin Ratio Triglycerides 113 Cholesterol 133 L LDL Cholesterol, Calc 40 HDL Cholesterol 70 H TSH U Opiates 300ng/mL cut Ur Oxycodone Screen Urine Methadone Screen Ur Barbiturates Screen U Tricyclic Antidepress Ur Phencyclidine Scrn Ur Amphetamines Screen U Methamphetamines Scrn Ur MDMA Scrn (Ecstasy) U Benzodiazepines Scrn Urine Cocaine Screen U Marijuana (THC) Screen SARS-CoV-2 (PCR) 01/05/21 05:33 WBC RBC Hgb Hct MCV MCH MCHC RDW Plt Count Neut % (Auto) Lymph % (Auto) [place] % (Auto) Eos % (Auto) Baso % (Auto) Neut # (Auto) Lymph # (Auto) [place] # (Auto) Eos # (Auto) Baso # (Auto) PT INR APTT Sodium Potassium Chloride Carbon Dioxide BUN Creatinine Estimated GFR BUN/Creatinine Ratio Glucose Hemoglobin A1c Calcium Magnesium Total Bilirubin AST ALT Alkaline Phosphatase Total Creatine Kinase CK-MB (CK-2) CK-MB (CK-2) Rel Index Troponin I Total Protein Albumin Globulin Albumin/Globulin Ratio Triglycerides Cholesterol LDL Cholesterol, Calc HDL Cholesterol TSH 1.20 U Opiates 300ng/mL cut Ur Oxycodone Screen Urine Methadone Screen Ur Barbiturates Screen U Tricyclic Antidepress Ur Phencyclidine Scrn Ur Amphetamines Screen U Methamphetamines Scrn Ur MDMA Scrn (Ecstasy) U Benzodiazepines Scrn Urine Cocaine Screen U Marijuana (THC) Screen SARS-CoV-2 (PCR) [facility] Medical History Ankle pain (2015) Anxiety Cerebrovascular accident Chickenpox (1958) Colon polyps (2010) Depression Eating disorder Fractures GERD (gastroesophageal reflux disease) (2000) Heavy menstrual period (1979) Hemorrhoids (1980) Measles (1957) Mumps (1958) Numbness and tingling Painful menstrual periods PTSD (post-traumatic stress disorder) (2014) Seasonal allergies Substance abuse (2016) Surgical History History of back surgery (1989) History of Vaughn-en-Y gastric bypass (2008) History of surgery on arm (~2008) History of tonsillectomy and adenoidectomy (1959) Hx of cholecystectomy (~2012) Hx of hysterectomy (1981) Hx of knee surgery (2015) Hx of varicose veins (~1994) S/P epidural steroid injection (12/02/19) Family History Father Heart failure Hypertension Hyperlipidemia Mental health problem Substance abuse Depression Mother PAD (peripheral artery disease) Alzheimer's disease Hypertension Hyperlipidemia Mental health problem Osteoporosis Brother No problems noted. Grandfather Heart disease Grandmother Depression Grandfather Depression Grandmother Stroke Family/Other Depression ADHD (attention deficit hyperactivity disorder) Aspergers' syndrome Family/Other Anxiety Social History household members: spouse Smoking Status: Former smoker Tobacco: How many years used: 25 alcohol intake: former Discharge Plan Discharge Plan Patient Disposition: Home Provider Discharge Comment: Ms. Brizuela came in to the hospital with dizziness. There was concern she may have had a stroke. Initial CT scan showed old stroke. She had an MRI which showed old stroke and recommended a repeat MRI in one month. ECHO showed no acute process. She received meclizine for her dizziness and improved. She had her atorvastatin increased and was feeling improved so was able to be discharged home. Discharge orders & Medications Prescriptions: New atorvastatin 40 mg tablet 40 mg PO QPM Qty: 30 RF: 0 meclizine 12.5 mg tablet 12.5 mg PO TID PRN (Reason: dizziness) Qty: 20 RF: 0 aspirin 81 mg Tablet,Delayed Release (Dr/Ec) 81 mg PO DAILY Qty: 30 RF: 0 Continued Women's 50 Plus Multivitamin 400 mcg-500 mg calcium-20 mcg tablet 1 tab PO DAILY RF: 0 omeprazole 20 mg capsule,delayed release(DR/EC) 20 mg PO BID RF: 0 eszopiclone [Lunesta] 1 mg Tablet 2 mg PO BEDTIME RF: 0 diphenhydramine-acetaminophen [Tylenol PM Extra Strength] 25-500 mg Tablet 1 tab PO BEDTIME PRN (Reason: Sleep) RF: 0 clopidogrel [Plavix] 75 mg tablet 75 mg PO DAILY Qty: 20 RF: 0 Discontinued atorvastatin [Lipitor] 20 mg Tablet 20 mg PO BEDTIME Qty: 30 RF: 0 aspirin 81 mg Tablet,Delayed Release (Dr/Ec) 81 mg PO DAILY Qty: 30 RF: 0 Follow up/Referrals: Pamela Beck DO [Primary Care Provider] - Diet/Activity/Treatments Diet: Low-cholesterol Discharge Data Primary Care Provider: Pamela Beck Attending Provider: Ken Walters [facility] [place] The patient has current or prior documentation of left ventricular ejection fraction (LVEF) less than 40%, or moderate or severely depressed left ventricular systolic function.: No
== END 2021-01-05 15:30 | disposition home or self-care (01) ==
LOC: ED 21:33 → AC 21:46
PROVIDERS: Admitting Provider Nurse Practitioner Adult Health; Emergency Provider Emergency Medicine; PCP Family Medicine; Referring Provider Emergency Medicine; Visit Provider Nurse Practitioner Adult Health
DX: R42 Dizziness and giddiness (principal); I10 Essential (primary) hypertension; Z86.73 Personal history of transient ischemic attack (TIA), and cerebral infarction without residual deficits; I73.9 Peripheral vascular disease, unspecified; K21.9 Gastro-esophageal reflux disease without esophagitis; D64.9 Anemia, unspecified; Z20.822 Contact with and (suspected) exposure to COVID-19
CPT/HCPCS: 36415; 70450; 70496; 70498; 70548; 70553; 80048; 80053; 80061; 80305; 81003; 82550; 83036; 83735; 84443; 84484; 85025; 85610; 85730; 87635; 93005; 93307; 96361; 96372; 96374; 97161; 99285; C9803; G0378; C9113; J1650; Q9967

== ENCOUNTER → 2021-03-31 13:30 | Outpatient (CLI) | payer MEDICARE, OTHER, SELFPAY ==
[2021-01-04 22:39] VITALS: BMI 28.3
--- NOTE | 2021-03-31 13:31 | DI.MG.S_ITS ---
BILATERAL DIGITAL SCREENING MAMMOGRAM 3D/2D WITH CAD: 03/31/2021 CLINICAL: Routine screening. Comparison is made to exams dated: 03/09/2020 mammogram, 01/18/2019 mammogram, 01/06/2018 mammogram, and 10/24/2016 mammogram - [facility]. There are scattered fibroglandular elements in both breasts. Current study was also evaluated with a Computer Aided Detection (CAD) system. No significant masses, calcifications, or other findings are seen in either breast. There has been no significant interval change. IMPRESSION: NEGATIVE There is no mammographic evidence of malignancy. A 1 year screening mammogram is recommended. This exam was interpreted at Station ID: [id number]. NOTE: For mammograms, a report in lay terms will be sent to the patient. Approximately 15% of breast malignancies will not be visualized mammographically. In the management of a palpable breast mass, a negative mammogram must not discourage biopsy of a clinically suspicious lesion. Electronically Signed By: Shan delgado/kylie:04/03/2021 08:01:15 letter sent: Normal Exam ACR BI-RADS Category 1: Negative 3341F
== END ==
PROVIDERS: PCP Family Medicine; Referring Provider Family Medicine; Visit Provider Family Medicine
DX: Z12.31 Encounter for screening mammogram for malignant neoplasm of breast (principal)
CPT/HCPCS: 77063; 77067

== ENCOUNTER 2022-01-30 11:02 | Emergency (ER) | payer MEDICARE, OTHER, SELFPAY ==
[2021-01-04 22:39] VITALS: BMI 28.3
[2022-01-30] VITALS (14 sets, daily range): BP systolic 161–230; BP diastolic 73–114; PULSE 70–88; RESP 8–18; TEMP 37.1; O2SAT 94–98; BMI 30.9
--- NOTE | 2022-01-30 11:14 | DI.RAD.S_ITS ---
PROCEDURE: XR CHEST 1V INDICATIONS: Possible stroke TECHNIQUE: One view of the chest was acquired. COMPARISON: , CR, XR CHEST 1V, 10/31/2020, 17:39. FINDINGS: Surgical changes and devices: None. Lungs and pleura: Lungs are clear. No pleural effusions or pneumothorax. Mediastinum: The cardiac contours are within normal limits. The aorta demonstrates calcification and tortuosity. Bones and chest wall: No suspicious bony lesions. Overlying soft tissues appear unremarkable. IMPRESSION: Clear lungs. Dictated by: Silverio Lake M.D. on 01/30/2022 at 11:15 Approved by: Silverio Lake M.D. on 01/30/2022 at 11:16
--- NOTE | 2022-01-30 11:23 | DI.CT.S_ITS ---
PROCEDURE: CT ANGIO HEAD AND NECK INDICATIONS: left vision changes x 1 week hx of cva TECHNIQUE: Pre-contrast 4.5 mm thick sections acquired from the foramen magnum to the vertex. After the administration of intravenous contrast, 1 mm thick sections acquired from the aortic arch through the [place]. Post-contrast 4.5 mm thick sections then re-acquired from the foramen magnum to the vertex. 3-dimensional eewshuj-izamwkjdy-mcrqggymiz (MIP) and/or volume rendering reformats were acquired of the central intracranial vasculature and neck separately. For radiation dose reduction, the following was used: automated exposure control, adjustment of mA and/or kV according to patient size. COMPARISON: [facility], MR, MR STROKE, 01/05/2021, 10:43. [facility], CT, CT HEAD/BRAIN WO CON, 01/04/2021, 19:02. [facility], CT, CT ANGIO HEAD AND NECK, 01/04/2021, 19:02. FINDINGS: Image quality: Excellent. BRAIN: The ventricular system and cortical sulci demonstrate minimal atrophy, consistent for the patient's stated age. There are areas of hypodensity within the periventricular and subcortical white matter. There is no acute intra-or extra axial fluid collection. Previous infarction is noted in the posterior left temporal and occipital lobes. No acute hemorrhage, mass lesion or midline shift. Brainstem is unremarkable. Globes are symmetrical. Sinuses are aerated. Osseous structures are intact. HEAD CT ANGIOGRAPHY: Anterior circulation: Intracranial internal carotid arteries are normal in size and flow. The flow within the paired anterior cerebral arteries is normal and symmetric. The flow within the middle cerebral arteries is normal and symmetric. The anterior communicating artery is seen. No aneurysms are seen. Posterior circulation: There is a slight right vertebral artery dominance. Visualized portions of the vertebral arteries demonstrate normal caliber, and join to form a normal appearing basilar artery. Flow within the posterior cerebral arteries is normal and symmetric. No aneurysms are seen. 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 The origins of the common carotid arteries appear patent. The common carotid arteries demonstrate normal caliber and courses. The bifurcation regions are both widely patent. The internal carotid arteries demonstrate less than 50% narrowing at the origins bilaterally. Calcifications are present. Posterior circulation: The origins of the vertebral arteries both appear widely patent. The more superior extracranial portions of both vertebral arteries also demonstrate normal courses and calibers. They join to form a normal appearing basilar artery. Soft tissues: Visualized neck soft tissues demonstrate no suspicious abnormalities. Bones: No suspicious bony lesions. Visualized cervical spine appears normally aligned. IMPRESSION: 1. No acute intracranial process. 2. Mild atrophy and chronic microvascular ischemic changes. 3. No areas of hemodynamically significant stenosis, vascular occlusion or aneurysmal dilation within the anterior or posterior circulation. 4. Less than 50% stenosis of the internal carotid arteries bilaterally, unchanged. Any quantitative measurements of stenosis were performed using NASCET criteria. Dictated by: Hazel Dutton M.D. on 01/30/2022 at 12:24 Approved by: Hazel Dutton M.D. on 01/30/2022 at 12:30
--- NOTE | 2022-01-30 11:28 | ED.NEUROSD ---
HPI - Neuro Symptoms/Deficit General Chief Complaint: Neuro Symptoms/Deficit Stated Complaint: Thinks stroke, has had one before Time Seen by Provider: 01/30/22 11:12 Source: patient Mode of arrival: Ambulatory History of Present Illness HPI Narrative: Patient is a 66-year-old female with history of CVA deficits include word-finding and left eye dryness. His she is on aspirin and Plavix. She over the last 1 week has had sinus like infection. She has had pressure congestion and drainage. She has noticed that her deficits have gotten a little bit worse. She has no numbness tingling or weakness. She is seeing double out of her left eye. No loss of vision. She says she got glasses done last year in previously her vision was good, however over last 1 week she feels as gotten worse. She is also noted to be quite hypertensive in the emergency department she is not on blood pressure medication. She overall just feels weak and foggy. No chest pain palpitation shortness of breath nausea vomiting she also denies any loss of vision Related Data Home Medications Medication Instructions Recorded Confirmed hkodpbvf-niy-sglvm ac 400 1 tab PO DAILY tab 05/05/19 01/04/21 mcg-calcium carb 500 mg-vit K1 20 mcg tablet (Women's 50 Plus Multivitamin) omeprazole 20 mg capsule,delayed 20 mg PO BID 12/09/19 01/04/21 release diphenhydramine 25 1 tab PO BEDTIME PRN 01/04/21 01/04/21 mg-acetaminophen 500 mg tablet (Tylenol PM Extra Strength) eszopiclone 1 mg tablet (Lunesta) 2 mg PO BEDTIME 01/04/21 01/04/21 Previous Rx's Medication Instructions Recorded clopidogrel 75 mg tablet (Plavix) 75 mg PO DAILY #20 tab 11/01/20 aspirin 81 mg tablet,delayed 81 mg PO DAILY #30 tab 01/05/21 release atorvastatin 40 mg tablet 40 mg PO QPM #30 tab 01/05/21 meclizine 12.5 mg tablet 12.5 mg PO TID PRN #20 tab 01/05/21 Allergies Allergy/AdvReac Type Severity Reaction Status Date / Time adhesive tape Allergy Severe Itching Verified 01/30/22 11:18 w/prolonged use erythromycin base AdvReac Severe Stomach Verified 01/30/22 11:18 [ERYTHROMYCIN BASE] cramps Review of Systems Review of Systems Narrative: GENERAL: Denies chills, fatigue, malaise, fever, sweats, travel HEENT: See HPI RESPIRATORY: Denies dyspnea, cough, wheezing, hemoptysis, sputum. CARDIOVASCULAR: Denies chest pain, palpitations, orthopnea, edema GASTROINTESTINAL: Denies nausea, vomiting, abdominal pain, diarrhea, constipation, melena. : Denies dysuria, frequency, incontinence, hematuria, urinary retention, flank pain. MUSCULOSKELETAL: Denies weakness, joint pain, or bony pain SKIN: No rash, no erythema, no pruritus NEUROLOGIC: See HPI Denies weakness, dizziness, headache, numbness, change in speech, confusion PSYCHIATRIC: No concerning psychosocial issues. 12 point review of systems is negative except for those stated above and HPI Patient History Medical History Ankle pain (2015) Anxiety Cerebrovascular accident Chickenpox (1957) Colon polyps (2009) Depression Eating disorder Fractures GERD (gastroesophageal reflux disease) (2000) Heavy menstrual period (1979) Hemorrhoids (1980) Measles (1957) Mumps (1958) Numbness and tingling Painful menstrual periods PTSD (post-traumatic stress disorder) (2014) Seasonal allergies Substance abuse (2015) Surgical History History of back surgery (1989) History of Vaughn-en-Y gastric bypass (2008) History of surgery on arm (~2008) History of tonsillectomy and adenoidectomy (1959) Hx of cholecystectomy (~2012) Hx of hysterectomy (1981) Hx of knee surgery (2015) Hx of varicose veins (~1994) S/P epidural steroid injection (12/02/19) Family History Father Heart failure Hypertension Hyperlipidemia Mental health problem Substance abuse Depression Mother PAD (peripheral artery disease) Alzheimer's disease Hypertension Hyperlipidemia Mental health problem Osteoporosis Brother No problems noted. Grandfather Heart disease Grandmother Depression Grandfather Depression Grandmother Stroke Family/Other Depression ADHD (attention deficit hyperactivity disorder) Aspergers' syndrome Family/Other Anxiety Social History household members: spouse Smoking Status: Former smoker Tobacco: How many years used: 25 alcohol intake: former Smoking Status: Former smoker alcohol intake frequency: holidays/special occasions only Alcohol type: wine Substance Use Type: does not use Exam Initial Vital Signs Initial Vital Signs: Vital Signs Temperature 98.8 F 01/30/22 11:04 Pulse Rate 88 01/30/22 11:04 Respiratory Rate 15 01/30/22 11:04 Blood Pressure 230/114 H 01/30/22 11:04 Pulse Oximetry 98 01/30/22 11:04 GENERAL: Alert very pleasant 66-year-old female HEENT: Head atraumatic,EOMI, no peripheral visual loss pupils reactive, face symmetric, moist mucous membranes CARDIOVASCULAR: Regular rate and rhythm without murmurs, rubs or gallops. RESPIRATORY: Breath sounds equal bilaterally, no wheezes rales or rhonchi. ABDOMEN: Soft, nontender. Normoactive bowel sounds all 4 quadrants. No guarding or rebound. EXTREMITIES: Normal range of motion, no clubbing or edema. Neurovascularly intact NEUROLOGICAL: Alert and oriented x4.Normal gait and speech. Cranial nerves II through XII grossly intact. Good iwuuvn-yw-lhig, good sksp-bq-dcmw, strength equal bilaterally, no dysarthria or aphasia, sensation in tact to soft touch bilaterally, no visual changes, no facial droop SKIN: Warm, dry, no laceration, no petechiae, no rashes or lesions. Scores NIH Stroke Scale Level of Conciousness: Alert, keenly responsive Ask month/age: Answers both questions correctly. Open/close eyes, close hand: Performs both tasks correctly Best gaze horizontal: Normal Visual ragland: No visual loss Facial palsy: Normal symetrical movement Left arm drift: No drift for full 10 sec Right arm drift: No drift for full 10 sec Left leg drift: No drift for full 5 sec Right leg drift: No drift for full 5 sec Limb ataxia: Absent Sensory on face/arms/legs: Normal, no sensory loss Best language: No aphasia, normal Dysarthria: Normal Extinction or inattention: No abnormality Total NIH Stroke scale score: 0 Course Orders Ordered: ED Orders 01/30/22 11:50 Complete Blood Count AUTO DIFF Stat Comprehensive Metabolic Panel Stat Partial Thromboplastin Time Stat Prothrombin Time INR Stat Troponin & CK Cardiac Panel Stat Discontinued Medications Acetaminophen (Acetaminophen 325 Mg Tablet) 975 mg PO NOW ONE Stop: 01/30/22 14:32 Last Admin: 01/30/22 14:34 Dose: 975 mg Documented by: LAINA Vital Signs Vital signs: Vital Signs - 8 hr 01/30/22 12:35 01/30/22 12:36 01/30/22 12:37 Pulse Rate 77 79 77 Respiratory Rate 18 14 Blood Pressure 177/83 H Pulse Oximetry 98 97 97 01/30/22 13:00 01/30/22 13:30 01/30/22 13:31 Pulse Rate 78 77 82 Respiratory Rate 14 15 18 Blood Pressure 166/89 H 168/73 H Pulse Oximetry 96 96 97 01/30/22 14:00 01/30/22 14:01 Pulse Rate 73 75 Respiratory Rate 11 L 8 L Blood Pressure 161/75 H Pulse Oximetry 94 96 MDM - Neuro Symptoms/Deficit Lab Data Result diagrams: 01/30/22 11:50 01/30/22 11:50 Labs: Lab Results 01/30/22 01/30/22 01/30/22 Range/Units 11:50 11:50 11:50 WBC 5.9 (4.5-11.0) X10^3/uL RBC 3.83 L (4.0-5.2) X10^6/uL Hgb 13.3 (12.0-16.0) g/dL Hct 39.3 (36-46) % MCV 102.6 H (80-100) fL MCH 34.6 H (26-34) PG MCHC 33.8 (30-36) % RDW 14.0 (11.6-14.8) % Plt Count 299 (150-400) X10^3/uL Neut % (Auto) 67.8 (50-75) % Lymph % (Auto) 24.0 L (25-40) % Brown % (Auto) 6.5 (3-14) % Eos % (Auto) 1.3 L (2-4) % Baso % (Auto) 0.4 (0-2) % Neut # (Auto) 4000 (0630-8223) /uL Lymph # (Auto) 1400 (9725-2267) /uL Brown # (Auto) 400 (0-900) /uL Eos # (Auto) 100 (0-450) /uL Baso # (Auto) 0 (0-100) /uL PT 10.9 (10.1-12.7) SECONDS INR 1.0 (0.9-1.3) APTT 30 (26.4-36.2) SECONDS Sodium 142 (137-145) mmol/L Potassium 3.7 (3.4-5.1) mmol/L Chloride 114 H (98-107) mmol/L Carbon Dioxide 19 L (22-32) mmol/L BUN 10 (7-17) mg/dL Creatinine 0.56 (0.52-1.04) mg/dL Estimated GFR > 60 (>60) mL/min BUN/Creatinine Ratio 17.9 (6-22) Glucose 101 (80-110) mg/dL Calcium 8.8 (8.4-10.2) mg/dL Total Bilirubin 0.5 (0.2-1.3) mg/dL AST 30 (14-36) IU/L ALT 19 (<35) IU/L Alkaline Phosphatase 93 (38-126) U/L Total Creatine Kinase 65 (30-135) U/L CK-MB (CK-2) TNP CK-MB (CK-2) Rel Index TNP Troponin I < 0.012 (0.01-0.034) ng/mL Total Protein 6.9 (6.3-8.2) g/dL Albumin 4.3 (3.5-5.0) g/dL Globulin 2.6 (1.7-4.1) g/dL Albumin/Globulin Ratio 1.7 (1.0-2.8) Point of Care Testing Glucose POC 101 Urine Dip Bedside Urine Glucose Negative Bedside Urine Bilirubin - Negative Bedside Urine Ketone - Negative Urine Specific [place] 1.010 Bedside Urine Occult Blood - Negative Bedside Urine pH 6 Bedside Urine Protein - Negative Bedside Urine Urobilinogen - Negative Bedside Urine Nitrite - Negative Bedside Urine Leukocytes - Negative Esterase Imaging Data CTA - brain/neck: Radiologist's Impression: Signed Patient: Yuly Brizuela MR#: [id number] : 1955 Acct:[id number] Age/Sex: 66 / F Date of Service: 01/30/22 Loc: ED Accession Number: [id number] ?? Procedure: CT angio head and neck Ordering Provider: Almita Watson D.O. PROCEDURE:? CT ANGIO HEAD AND NECK ? INDICATIONS:? left vision changes x 1 week hx of cva ? TECHNIQUE:? Pre-contrast 4.5 mm thick sections acquired from the foramen magnum to the vertex.? After the administration of intravenous contrast, 1 mm thick sections acquired from the aortic arch through the [place] of [place].? Post-contrast 4.5 mm thick sections then re-acquired from the foramen magnum to the vertex.? 3-dimensional wgrewmw-bgvhpkiyl-kdcnuodbmh (MIP) and/or volume rendering reformats were acquired of the central intracranial vasculature and neck separately. For radiation dose reduction, the following was used:? automated exposure control, adjustment of mA and/or kV according to patient size.? ? COMPARISON:? [facility], MR, MR STROKE, 01/05/2021, 10:43.? [facility], CT, CT HEAD/BRAIN WO CON, 01/04/2021, 19:02.? [facility], CT, CT ANGIO HEAD AND NECK, 01/04/2021, 19:02. ? FINDINGS:? Image quality:? Excellent.? ? BRAIN:? The ventricular system and cortical sulci demonstrate minimal atrophy, consistent for the patient's stated age. There are areas of hypodensity within the periventricular and subcortical white matter.? There is no acute intra-or extra axial fluid collection.? Previous infarction is noted in the posterior left temporal and occipital lobes.? No acute hemorrhage, mass lesion or midline shift. Brainstem is unremarkable. Globes are symmetrical. Sinuses are aerated. Osseous structures are intact. ? HEAD CT ANGIOGRAPHY:? Anterior circulation:? Intracranial internal carotid arteries are normal in size and flow.? The flow within the paired anterior cerebral arteries is normal and symmetric.? The flow within the middle cerebral arteries is normal and symmetric.? The anterior communicating artery is seen.? No aneurysms are seen.? ? Posterior circulation:? There is a slight right vertebral artery dominance.? Visualized portions of the vertebral arteries demonstrate normal caliber, and join to form a normal appearing basilar artery.? Flow within the posterior cerebral arteries is normal and symmetric.? No aneurysms are seen.? ? NECK CT ANGIOGRAPHY:? Carotid system:? 9 arches present consistent with congenital variation.? The origins of the common carotid arteries appear patent.? The common carotid arteries demonstrate normal caliber and courses.? The bifurcation regions are both widely patent.? The internal carotid arteries demonstrate less than 50% narrowing at the origins bilaterally. ?Calcifications are present. ? Posterior circulation:? The origins of the vertebral arteries both appear widely patent.? The more superior extracranial portions of both vertebral arteries also demonstrate normal courses and calibers.? They join to form a normal appearing basilar artery.? ? Soft tissues:? Visualized neck soft tissues demonstrate no suspicious abnormalities.? ? Bones:? No suspicious bony lesions.? Visualized cervical spine appears normally aligned.? IMPRESSION:? ? 1. No acute intracranial process. ? 2. Mild atrophy and chronic microvascular ischemic changes. ? 3. No areas of hemodynamically significant stenosis, vascular occlusion or aneurysmal dilation within the anterior or posterior circulation. ? 4.? Less than 50% stenosis of the internal carotid arteries bilaterally, unchanged. ? Any quantitative measurements of stenosis were performed using NASCET criteria.? ? ? Dictated by: Hazel Dutton M.D. on 01/30/2022 at 12:24 ? ? ECG Data Interpretation: Normal sinus rhythm rate 70 p.r. interval 168 QRS [address] changes no T-wave inversions, similar to previous EKG MDM Narrative Medical decision making narrative: Patient really does not have any appreciable deficits what she feels is more exacerbated are her old symptoms. Has been ongoing for [address] angio is negative. She certainly is not a candidate for tPA even if she were having new or worsening symptoms. She actually feels like her symptoms may have been exacerbated by a mild sinus infection. She has not had any fever. And her sinus symptoms are improving with the Mucinex. She has been compliant with her Plavix and aspirin. She just wanted to come in and get checked out and make sure that she was not having another stroke. Discharge Plan Departure Patient Disposition: Home Clinical Impression: Acute infection of sinus Instructions: Sinusitis Activity Restrictions/Additional Instructions: *You have been diagnosed with probable sinus infection *What to do: At this time blood work and CT are negative. I encourage you to follow-up with her primary care provider. Please continue to monitor her blood pressure is noted to be slightly elevated here in the emergency department *Continue to take medications as directed *Follow up with your primary care provider in 2-3 days or call [phone] *Return to ER if you should have increased visual changes numbness tingling weakness dizziness worsening speech difficulty . or any new, worsening or concerning symptoms Prescriptions: No Action Women's 50 Plus Multivitamin 400 mcg-500 mg calcium-20 mcg tablet 1 tab PO DAILY 0RF omeprazole 20 mg capsule,delayed release(DR/EC) 20 mg PO BID 0RF eszopiclone [Lunesta] 1 mg Tablet 2 mg PO BEDTIME 0RF diphenhydramine-acetaminophen [Tylenol PM Extra Strength] 25-500 mg Tablet 1 tab PO BEDTIME PRN (Reason: Sleep) 0RF atorvastatin 40 mg tablet 40 mg PO QPM Qty: 30 0RF meclizine 12.5 mg tablet 12.5 mg PO TID PRN (Reason: dizziness) Qty: 20 0RF aspirin 81 mg Tablet,Delayed Release (Dr/Ec) 81 mg PO DAILY Qty: 30 0RF clopidogrel [Plavix] 75 mg tablet 75 mg PO DAILY Qty: 20 0RF Referrals: Pamela Beck DO [Primary Care Provider] -
[2022-01-30 12:13] LABS: Add Manual Diff / Slide Review NO; Basophils Absolute Auto 0 /uL (0-100); Basophils Percent Auto 0.4 % (0-2); Eosinophils Absolute Auto 100 /uL (0-450); Eosinophils Percent Auto 1.3 % (2-4); Hematocrit 39.3 % (36-46); Hemoglobin 13.3 g/dL (12.0-16.0); Lymphocytes Absolute Auto 1400 /uL (1100-4500); Mean Corpuscular HGB Conc 33.8 % (30-36); Mean Corpuscular Hemoglobin 34.6 PG (26-34); Mean Corpuscular Volume 102.6 fL (80-100); Monocytes Absolute Auto 400 /uL (0-900); Monocytes Percent Auto 6.5 % (3-14); Neutrophils Absolute Auto 4000 /uL (1500-7000); Neutrophils Percent Auto 67.8 % (50-75); Platelet Count 299 X10^3/uL (150-400); Red Blood Cell Count 3.83 X10^6/uL (4.0-5.2); White Blood Cell Count 5.9 X10^3/uL (4.5-11.0)
[2022-01-30 12:15] LABS: Prothrombin Time 10.9 SECONDS (10.1-12.7)
[2022-01-30 12:18] LABS: PTT Partial Thromboplastin Tim 30 SECONDS (26.4-36.2)
[2022-01-30 12:20] LABS: Alanine Aminotransferase 19 IU/L (<35); Albumin 4.3 g/dL (3.5-5.0); Albumin Globulin Ratio 1.7 (1.0-2.8); Alkaline Phosphatase 93 U/L (38-126); Aspartate Aminotransferase 30 IU/L (14-36); BUN Creatinine Ratio 17.9 (6-22); Bilirubin Total 0.5 mg/dL (0.2-1.3); Blood Urea Nitrogen 10 mg/dL (7-17); Calcium 8.8 mg/dL (8.4-10.2); Carbon Dioxide 19 mmol/L (22-32); Chloride 114 mmol/L (98-107); Creatine Kinase 65 U/L (30-135); Estimated Glomerular Filt Rate > 60 mL/min (>60); Globulin 2.6 g/dL (1.7-4.1); Glucose 101 mg/dL (80-110); HEMOLYSIS < 15 (0-50); Potassium 3.7 mmol/L (3.4-5.1); Sodium 142 mmol/L (137-145); Total Protein 6.9 g/dL (6.3-8.2)
[2022-01-30 12:31] LABS: Troponin I < 0.012 ng/mL (0.01-0.034)
[2022-01-30] MEDS: ACETAMINOPHEN 325 MG TABLET 975 MG PO (14:34)
== END 2022-01-30 14:35 | disposition home or self-care (01) ==
PROVIDERS: Emergency Provider Emergency Medicine; PCP Family Medicine
DX: J01.90 Acute sinusitis, unspecified (principal); R29.818 Other symptoms and signs involving the nervous system; R03.0 Elevated blood-pressure reading, without diagnosis of hypertension
CPT/HCPCS: 36415; 70496; 70498; 71045; 80053; 81003; 82550; 82962; 84484; 85025; 85610; 85730; 93005; 93010; 99284; Q9967

== ENCOUNTER → 2022-04-06 09:51 | Outpatient (CLI) | payer MEDICARE, OTHER, SELFPAY ==
[2021-01-04 22:39] VITALS: BMI 28.3
--- NOTE | 2022-04-06 09:54 | DI.MG.S_ITS ---
BILATERAL DIGITAL SCREENING MAMMOGRAM 3D/2D WITH CAD: 04/06/2022 CLINICAL: Routine screening. Comparison is made to exams dated: 03/31/2021 mammogram, 03/09/2020 mammogram, and 01/18/2019 mammogram - [facility]. The tissue of both breasts is predominantly fatty. Current study was also evaluated with a Computer Aided Detection (CAD) system. No significant masses, calcifications, or other findings are seen in either breast. There has been no significant interval change. IMPRESSION: NEGATIVE There is no mammographic evidence of malignancy. A 1 year screening mammogram is recommended. Based on the Tyrer Cuzick model (a risk assessment model) the patient's lifetime risk is 2.2% and her 10 year risk is 1.1%. According to the ACR, ACS, and NCCN guidelines, an annual breast MRI exam along with mammogram is recommended if the patient's lifetime risk is 20% or greater. This exam was interpreted at Station ID: [id number]. NOTE: For mammograms, a report in lay terms will be sent to the patient. Approximately 15% of breast malignancies will not be visualized mammographically. In the management of a palpable breast mass, a negative mammogram must not discourage biopsy of a clinically suspicious lesion. Electronically Signed By: Roshni dave/kylie:04/08/2022 09:10:39 letter sent: Normal Exam ACR BI-RADS Category 1: Negative 3341F
== END ==
PROVIDERS: PCP Family Medicine; Referring Provider Family Medicine; Visit Provider Family Medicine
DX: Z12.31 Encounter for screening mammogram for malignant neoplasm of breast (principal)
CPT/HCPCS: 77063; 77067

== ENCOUNTER → 2022-10-21 07:45 | Outpatient (CLI) | payer MEDICARE, OTHER, SELFPAY ==
[2021-01-04 22:39] VITALS: BMI 28.3
[2022-10-21 09:02] LABS: Alanine Aminotransferase 24 IU/L (<35); Albumin Globulin Ratio 1.5 (1.0-2.8); Alkaline Phosphatase 95 U/L (38-126); Aspartate Aminotransferase 24 IU/L (14-36); BUN Creatinine Ratio 16.7 (6-22); Bilirubin Total 0.5 mg/dL (0.2-1.3); Blood Urea Nitrogen 9 mg/dL (7-17); Calcium 9.2 mg/dL (8.4-10.2); Carbon Dioxide 25 mmol/L (22-32); Chloride 108 mmol/L (98-107); Cholesterol 134 mg/dL (140-199); Estimated Glomerular Filt Rate > 60 mL/min (>60); Globulin 2.6 g/dL (1.7-4.1); Glucose 101 mg/dL (80-110); HDL Cholesterol 53 mg/dL (40-60); HEMOLYSIS < 15 (0-50); LDL Cholesterol Calculated 55 mg/dL (<100); Potassium 4.8 mmol/L (3.4-5.1); Sodium 142 mmol/L (137-145); Total Protein 6.6 g/dL (6.3-8.2); Triglycerides 132 mg/dL (35-150)
== END ==
PROVIDERS: PCP Family Medicine; Referring Provider Family Medicine; Visit Provider Family Medicine
DX: I63.9 Cerebral infarction, unspecified (principal)
CPT/HCPCS: 36415; 80053; 80061

== ENCOUNTER → 2023-02-12 08:50 | Outpatient (CLI) | payer MEDICARE, OTHER, SELFPAY ==
[2021-01-04 22:39] VITALS: BMI 28.3
[2023-02-12 10:58] LABS: Vitamin D 25 Hydroxy (D3) 25.2 ng/mL (30.0-100.0)
[2023-02-14 07:10] LABS: Calcium 8.8 mg/dL (8.7-10.3); Parathyroid Hormone, Intact 78 pg/mL (15-65)
== END ==
PROVIDERS: PCP Family Medicine; Referring Provider Family Medicine; Visit Provider Family Medicine
DX: M81.0 Age-related osteoporosis without current pathological fracture (principal)
CPT/HCPCS: 36415; 82306; 82310; 83970

== ENCOUNTER 2023-03-01 09:10 | Emergency (ER) | payer MEDICARE, OTHER, SELFPAY ==
[2021-01-04 22:39] VITALS: BMI 28.3
[2023-03-01] VITALS (15 sets, daily range): BP systolic 157–226; BP diastolic 78–118; PULSE 63–84; RESP 14–36; TEMP 36.4; O2SAT 95–99; BMI 31.8
--- NOTE | 2023-03-01 09:31 | DI.RAD.S_ITS ---
PROCEDURE: XR CHEST 1V INDICATIONS: chest pain TECHNIQUE: One view of the chest was acquired. COMPARISON: [facility], CR, XR CHEST 1V, 01/30/2022, 11:54. FINDINGS: Surgical changes and devices: None. Lungs and pleura: Stable linear region within the left mid lung likely representing focal scarring or atelectasis. Linear region of the right lung base also likely representing atelectasis/scarring. Stable eventration of the right hemidiaphragm. No consolidation, pneumothorax, or pleural effusion. Mediastinum: Mediastinal contours appear normal. Heart size is normal. Bones and chest wall: No suspicious bony lesions. Overlying soft tissues appear unremarkable. IMPRESSION: No acute cardiopulmonary abnormality. Dictated by: Domenico Hogue D.O. on 03/01/2023 at 8:45 Approved by: Domenico Hogue D.O. on 03/01/2023 at 8:46
--- NOTE | 2023-03-01 09:34 | ED.GENADULT ---
HPI - General Adult General Chief complaint: Hypertension Stated complaint: high BP Time Seen by Provider: 03/01/23 09:34 Source: patient Mode of arrival: Ambulatory History of Present Illness HPI narrative: Patient 59-year-old female history of hypertension, peripheral arterial disease, CVA, presents today with about 1 week of dizziness. She reports that she feels slightly dizzy constantly. She denies any headache chest pain or palpitations. It is not positional. She reports that she is able to work in the garden without any difficulty. She is no problem with exertion. She went to the dentist last week and was not able to be seen due to elevated blood pressure. She is be extremely hypertensive here in the emergency department. She denies any nausea vomiting facial droop or other symptoms. She reports that she previously had a stroke here and symptoms were aphasia. Related Data Home Medications Medication Instructions Recorded Confirmed mfjlgfxp-jrg-iqmcb ac 400 1 tab PO DAILY 05/05/19 01/04/21 mcg-calcium carb 500 mg-vit K1 20 mcg tablet (Women's 50 Plus Multivitamin) omeprazole 20 mg capsule,delayed 20 mg PO BID 12/09/19 01/04/21 release diphenhydramine 25 1 tab PO BEDTIME PRN Sleep 01/04/21 01/04/21 mg-acetaminophen 500 mg tablet (Tylenol PM Extra Strength) eszopiclone 1 mg tablet (Lunesta) 2 mg PO BEDTIME 01/04/21 01/04/21 Previous Rx's Medication Instructions Recorded clopidogrel 75 mg tablet (Plavix) 75 mg PO DAILY #20 tabs 11/01/20 aspirin 81 mg tablet,delayed 81 mg PO DAILY #30 tabs 01/05/21 release atorvastatin 40 mg tablet 40 mg PO QPM #30 tabs 01/05/21 meclizine 12.5 mg tablet 12.5 mg PO TID PRN dizziness #20 01/05/21 tabs Allergies Allergy/AdvReac Type Severity Reaction Status Date / Time adhesive tape Allergy Severe Itching Verified 03/01/23 09:31 w/prolonged use erythromycin base AdvReac Severe Stomach Verified 03/01/23 09:31 [ERYTHROMYCIN BASE] cramps Review of Systems Review of Systems ROS Unobtainable: All systems reviewed & are unremarkable except as noted in HPI and below Patient History Medical History Ankle pain (2016) Anxiety Cerebrovascular accident Chickenpox (1957) Colon polyps (2009) Depression Eating disorder Fractures GERD (gastroesophageal reflux disease) (2000) Heavy menstrual period (1979) Hemorrhoids (1980) Measles (8) Mumps (1958) Numbness and tingling Painful menstrual periods PTSD (post-traumatic stress disorder) (2014) Seasonal allergies Substance abuse (2016) Surgical History History of back surgery (1989) History of Vaughn-en-Y gastric bypass (2008) History of surgery on arm (~2008) History of tonsillectomy and adenoidectomy (1959) Hx of cholecystectomy (~2012) Hx of hysterectomy (1981) Hx of knee surgery (2015) Hx of varicose veins (~1994) S/P epidural steroid injection (12/02/19) Family History Father Heart failure Hypertension Hyperlipidemia Mental health problem Substance abuse Depression Mother PAD (peripheral artery disease) Alzheimer's disease Hypertension Hyperlipidemia Mental health problem Osteoporosis Brother No problems noted. Grandfather Heart disease Grandmother Depression Grandfather Depression Grandmother Stroke Family/Other Depression ADHD (attention deficit hyperactivity disorder) Aspergers' syndrome Family/Other Anxiety Social History household members: spouse Smoking Status: Former smoker Tobacco: How many years used: 25 alcohol intake: former Smoking Status: Former smoker alcohol intake frequency: holidays/special occasions only Alcohol type: wine Substance Use Type: does not use Exam Initial Vital Signs Initial Vital Signs: Vital Signs Temperature 97.5 F L 03/01/23 09:26 Pulse Rate 80 03/01/23 09:26 Respiratory Rate 14 03/01/23 09:26 Blood Pressure 209/109 H 03/01/23 09:26 Pulse Oximetry 99 03/01/23 09:26 Oxygen Delivery Method Room Air 03/01/23 09:26 GENERAL: Alert pleasant 67-year-old female and in no acute distress. HEENT: Head atraumatic,EOMI, pupils reactive, face symmetric, moist mucous membranes CARDIOVASCULAR: Regular rate and rhythm without murmurs, rubs or gallops. RESPIRATORY: Breath sounds equal bilaterally, no wheezes rales or rhonchi. ABDOMEN: Soft, nontender. Normoactive bowel sounds all 4 quadrants. No guarding or rebound. EXTREMITIES: Normal range of motion, no clubbing or edema. Neurovascularly intact NEUROLOGICAL: Alert and oriented x4.Normal gait and speech. Cranial nerves II through XII grossly intact. Good ooixis-bn-fybj, good oxix-vh-frxb, strength equal bilaterally, no dysarthria or aphasia, sensation in tact to soft touch bilaterally, no visual changes, no facial droop SKIN: Warm, dry, no laceration, no petechiae, no rashes or lesions. Scores NIH Stroke Scale Level of Conciousness: Alert, keenly responsive Ask month/age: Answers both questions correctly. Open/close eyes, close hand: Performs both tasks correctly Best gaze horizontal: Normal Visual ragland: No visual loss Facial palsy: Normal symetrical movement Left arm drift: No drift for full 10 sec Right arm drift: No drift for full 10 sec Left leg drift: No drift for full 5 sec Right leg drift: No drift for full 5 sec Limb ataxia: Absent Sensory on face/arms/legs: Normal, no sensory loss Best language: No aphasia, normal Dysarthria: Normal Extinction or inattention: No abnormality Total NIH Stroke scale score: 0 Course Orders Ordered: ED Orders 03/01/23 09:47 Complete Blood Count AUTO DIFF Stat Comprehensive Metabolic Panel Stat Lipase Stat Magnesium Stat PTT Partial Thromboplastin Lance Stat Prothrombin Time INR Stat Troponin & CK Cardiac Panel Stat 03/01/23 10:07 EKG-12 Lead Stat Discontinued Medications Labetalol HCl (Labetalol 20 Mg/4 Ml Syringe) 10 mg IV NOW ONE; Protocol Stop: 03/01/23 09:45 Vital Signs Vital signs: Vital Signs - 8 hr 03/01/23 10:51 03/01/23 10:51 03/01/23 11:00 Pulse Rate 69 66 Respiratory Rate 29 H 21 Blood Pressure 191/90 H Pulse Oximetry 97 96 03/01/23 11:01 03/01/23 11:01 03/01/23 11:16 Pulse Rate 64 Respiratory Rate 21 Blood Pressure 171/78 H 177/90 H Pulse Oximetry 97 03/01/23 11:16 03/01/23 11:30 03/01/23 11:30 Pulse Rate 66 63 Respiratory Rate 29 H 36 H Blood Pressure 157/84 H Pulse Oximetry 95 95 Medical Decision Making Lab Data 03/01/23 09:47 03/01/23 09:47 Labs: Lab Results 03/01/23 03/01/23 03/01/23 Range/Units 09:47 09:47 09:47 WBC 5.9 (4.5-11.0) X10^3/uL RBC 3.86 L (4.0-5.2) X10^6/uL Hgb 13.3 (12.0-16.0) g/dL Hct 39.1 (36-46) % MCV 101.3 H (80-100) fL MCH 34.4 H (26-34) PG MCHC 34.0 (30-36) % RDW 13.2 (11.6-14.8) % Plt Count 344 (150-400) X10^3/uL Neut % (Auto) 62.2 (50-75) % Lymph % (Auto) 28.1 (25-40) % Villalba % (Auto) 8.0 (3-14) % Eos % (Auto) 1.0 L (2-4) % Baso % (Auto) 0.7 (0-2) % Neut # (Auto) 3700 (9520-8654) /uL Lymph # (Auto) 1700 (7064-6799) /uL Villalba # (Auto) 500 (0-900) /uL Eos # (Auto) 100 (0-450) /uL Baso # (Auto) 0 (0-100) /uL PT 11.0 (10.1-12.7) SECONDS INR 1.0 (0.9-1.3) APTT 30 (26-36) SECONDS Sodium 140 (137-145) mmol/L Potassium 3.9 (3.4-5.1) mmol/L Chloride 108 H (98-107) mmol/L Carbon Dioxide 27 (22-32) mmol/L BUN 9 (7-17) mg/dL Creatinine 0.60 (0.52-1.04) mg/dL Estimated GFR > 60 (>60) mL/min BUN/Creatinine Ratio 15.0 (6-22) Glucose 94 (80-110) mg/dL Calcium 8.9 (8.4-10.2) mg/dL Magnesium 2.0 (1.6-2.3) mg/dL Total Bilirubin 0.4 (0.2-1.3) mg/dL AST 27 (14-36) IU/L ALT 26 (<35) IU/L Alkaline Phosphatase 82 (38-126) U/L Total Creatine Kinase 56 (30-135) U/L CK-MB (CK-2) TNP CK-MB (CK-2) Rel Index TNP Troponin I < 0.012 (0.01-0.034) ng/mL Total Protein 7.0 (6.3-8.2) g/dL Albumin 4.3 (3.5-5.0) g/dL Globulin 2.7 (1.7-4.1) g/dL Albumin/Globulin Ratio 1.6 (1.0-2.8) Lipase 156 (23-300) U/L Imaging Data CTA - brain/neck: Radiologist's Impression: PROCEDURE:? CT ANGIO HEAD AND NECK ? INDICATIONS:? dizzy HTN x 1 week ? TECHNIQUE:? Pre-contrast 4.5 mm thick sections acquired from the foramen magnum to the vertex.? After the administration of intravenous contrast, 1 mm thick sections acquired from the aortic arch through the [place].? Post-contrast 4.5 mm thick sections then re-acquired from the foramen magnum to the vertex.? 3-dimensional jqaulei-vruyafwoo-rqnrrbyhta (MIP) and/or volume rendering reformats were acquired of the central intracranial vasculature and neck separately. For radiation dose reduction, the following was used:? automated exposure control, adjustment of mA and/or kV according to patient size.? ? COMPARISON:? [facility], CT, CT ANGIO HEAD AND NECK, 01/30/2022, 12:31. ? FINDINGS:? Image quality:? Excellent.? ? BRAIN:? CSF spaces:? Ventricles are normal in size and shape.? Basal cisterns are patent.? No extra-axial fluid collections.? ? Brain:? No midline shift.? No intracranial bleeds or masses.? The deep and superficial white matter hypoattenuation is noted.? Region of encephalomalacia from remote infarct of the left temporal and occipital lobes, unchanged.? No new region of soto-white matter differentiation loss.? ? Skull and face:? Calvarium and facial bones appear intact, without suspicious lesions.? Orbits appear normal.? ? Sinuses:? Sinuses and mastoids are clear.? ? HEAD CT ANGIOGRAPHY:? Anterior circulation:? Intracranial internal carotid arteries are normal in size and flow.? The flow within the paired anterior cerebral arteries is normal and symmetric.? The flow within the middle cerebral arteries is normal and symmetric.? The anterior communicating artery is seen.? No aneurysms are seen.? ? Posterior circulation:? Visualized portions of the vertebral arteries demonstrate normal caliber, and join to form a normal appearing basilar artery.? Flow within the posterior cerebral arteries is normal and symmetric.? No aneurysms are seen.? ? NECK CT ANGIOGRAPHY:? Carotid system:? The great vessels demonstrate a conventional anatomy as they arise from the aortic arch.? The common carotid arteries demonstrate normal caliber and courses.? The internal carotid arteries demonstrate normal calibers and courses.? Calcifications are present bilaterally with less than 50 percent there done of the origins of bilaterally as well as at the carotid bifurcations. ? Posterior circulation:? The origins of the vertebral arteries both appear widely patent.? The more superior extracranial portions of both vertebral arteries also demonstrate normal courses and calibers.? They join to form a normal appearing basilar artery.? ? Soft tissues:? No suspicious abnormality.? In slightly enlarged and heterogeneous thyroid gland with subcentimeter nodules. ? Bones:? No suspicious bony lesions.? Degenerative changes with minimal anterolisthesis of C4 on C5 with resultant mild spinal canal and neural foraminal stenosis.? Additional regions of mild neural foraminal stenosis.? No acute osseous abnormality.? Visualized cervical spine appears normally aligned.? ? ? IMPRESSION:? ? Stable exam without acute intracranial process. ? Mild atrophy and microvascular ischemic changes. ? Small region of remote infarct of the left temporal occipital lobes. ? No significant stenosis, occlusion, or dilation within the anterior posterior circulation. ? Less than 50 percent stenosis of the internal carotid arteries bilaterally, unchanged. ? Any quantitative measurements of stenosis were performed using NASCET criteria.? ? ? Dictated by: Domenico Hogue D.O. on 03/01/2023 at 9:14 ?? Chest x-ray: Radiologist's Impression: PROCEDURE:? XR CHEST 1V ? INDICATIONS:? chest pain ? TECHNIQUE:? One view of the chest was acquired.? ? COMPARISON:? [facility], CR, XR CHEST 1V, 01/30/2022, 11:54. ? FINDINGS:? ? Surgical changes and devices:? None.? ? Lungs and pleura:? Stable linear region within the left mid lung likely representing focal scarring or atelectasis.? Linear region of the right lung base also likely representing atelectasis/scarring.? Stable eventration of the right hemidiaphragm.? No consolidation, pneumothorax, or pleural effusion. ? Mediastinum:? Mediastinal contours appear normal.? Heart size is normal.? ? Bones and chest wall:? No suspicious bony lesions.? Overlying soft tissues appear unremarkable.? ? IMPRESSION:? ? No acute cardiopulmonary abnormality. ? ? Dictated by: Domenico Hogue D.O. on 03/01/2023 at 8:45 ? ? ECG Data Interpretation: Normal sinus rhythm rate 67 CA interval 166 QRS [address] changes similar T-wave inversion noted in lead 3 very new from previous however seen on other EKGs 11/01/2020 in looks significantly better MDM Narrative Medical decision making narrative: Patient 59-year-old female significant history of peripheral vascular disease, CVA, hypertension presenting today with ongoing dizziness. She is noted to be extremely hypertensive in the emergency department however after she returned back from CT blood pressure improved. She is no evidence of end-organ damage on blood work. She has no focal deficits. EKG appears stable. This light dizziness does not seem to be affecting her daily activity. She reports that she is been monitoring her blood pressure it is noted to be elevated in the morning and slowly gets better throughout the day with blood pressure by bedtime of systolic of 119. At this time she is overall feeling better did not require any intervention. I see no need for any further workup or evaluation in the ED. Recommend that she continue to monitor her blood pressure at home given her strict return precautions and to follow-up closely with her PCP in regards to blood pressure she may require some medication. She is certainly at risk for her peripheral vascular disease and CVA. Discharge Plan Departure Patient Disposition: Home Clinical Impression: Hypertension Instructions: DI for High Blood Pressure Activity Restrictions/Additional Instructions: *You have been diagnosed with high blood pressure *What to do: Please continue to check her blood pressure twice a day and record it. It is important to keep her blood pressure under control you may need to be started on some medication. If you should have worsening symptoms or blood pressure greater than 200 for longer than 2 hours then please return to emergency department *Continue to take medications as directed *Follow up with your primary care provider in 2-3 days or call [phone] *Return to ER if you should have persistently elevated blood pressure, worsening dizziness headache difficulty speaking numbness tingling weakness chest pain or palpitations [or] any new, worsening or concerning symptoms Prescriptions: No Action Women's 50 Plus Multivitamin 400 mcg-500 mg calcium-20 mcg tablet 1 tab PO DAILY omeprazole 20 mg capsule,delayed release(DR/EC) 20 mg PO BID eszopiclone [Lunesta] 1 mg Tablet 2 mg PO BEDTIME diphenhydramine-acetaminophen [Tylenol PM Extra Strength] 25-500 mg Tablet 1 tab PO BEDTIME PRN (Reason: Sleep) atorvastatin 40 mg tablet 40 mg PO QPM Qty: 30 0RF meclizine 12.5 mg tablet 12.5 mg PO TID PRN (Reason: dizziness) Qty: 20 0RF aspirin 81 mg Tablet,Delayed Release (Dr/Ec) 81 mg PO DAILY Qty: 30 0RF clopidogrel [Plavix] 75 mg tablet 75 mg PO DAILY Qty: 20 0RF Referrals: Pamela Sloan DO [Primary Care Provider] - Stand Alone Forms: Patient Portal/API
--- NOTE | 2023-03-01 09:44 | DI.CT.S_ITS ---
PROCEDURE: CT ANGIO HEAD AND NECK INDICATIONS: dizzy HTN x 1 week TECHNIQUE: Pre-contrast 4.5 mm thick sections acquired from the foramen magnum to the vertex. After the administration of intravenous contrast, 1 mm thick sections acquired from the aortic arch through the [place] of [place]. Post-contrast 4.5 mm thick sections then re-acquired from the foramen magnum to the vertex. 3-dimensional btbsvqn-wmnlnnwsm-jczjxxuwft (MIP) and/or volume rendering reformats were acquired of the central intracranial vasculature and neck separately. For radiation dose reduction, the following was used: automated exposure control, adjustment of mA and/or kV according to patient size. COMPARISON: [facility], CT, CT ANGIO HEAD AND NECK, 01/30/2022, 12:31. FINDINGS: Image quality: Excellent. BRAIN: CSF spaces: Ventricles are normal in size and shape. Basal cisterns are patent. No extra-axial fluid collections. Brain: No midline shift. No intracranial bleeds or masses. The deep and superficial white matter hypoattenuation is noted. Region of encephalomalacia from remote infarct of the left temporal and occipital lobes, unchanged. No new region of soto-white matter differentiation loss. Skull and face: Calvarium and facial bones appear intact, without suspicious lesions. Orbits appear normal. Sinuses: Sinuses and mastoids are clear. HEAD CT ANGIOGRAPHY: Anterior circulation: Intracranial internal carotid arteries are normal in size and flow. The flow within the paired anterior cerebral arteries is normal and symmetric. The flow within the middle cerebral arteries is normal and symmetric. The anterior communicating artery is seen. No aneurysms are seen. Posterior circulation: Visualized portions of the vertebral arteries demonstrate normal caliber, and join to form a normal appearing basilar artery. Flow within the posterior cerebral arteries is normal and symmetric. No aneurysms are seen. NECK CT ANGIOGRAPHY: Carotid system: The great vessels demonstrate a conventional anatomy as they arise from the aortic arch. The common carotid arteries demonstrate normal caliber and courses. The internal carotid arteries demonstrate normal calibers and courses. Calcifications are present bilaterally with less than 50 percent there done of the origins of bilaterally as well as at the carotid bifurcations. Posterior circulation: The origins of the vertebral arteries both appear widely patent. The more superior extracranial portions of both vertebral arteries also demonstrate normal courses and calibers. They join to form a normal appearing basilar artery. Soft tissues: No suspicious abnormality. In slightly enlarged and heterogeneous thyroid gland with subcentimeter nodules. Bones: No suspicious bony lesions. Degenerative changes with minimal anterolisthesis of C4 on C5 with resultant mild spinal canal and neural foraminal stenosis. Additional regions of mild neural foraminal stenosis. No acute osseous abnormality. Visualized cervical spine appears normally aligned. IMPRESSION: Stable exam without acute intracranial process. Mild atrophy and microvascular ischemic changes. Small region of remote infarct of the left temporal occipital lobes. No significant stenosis, occlusion, or dilation within the anterior posterior circulation. Less than 50 percent stenosis of the internal carotid arteries bilaterally, unchanged. Any quantitative measurements of stenosis were performed using NASCET criteria. Dictated by: Domenico Hogue D.O. on 03/01/2023 at 9:14 Approved by: Domenico Hogue D.O. on 03/01/2023 at 9:28
[2023-03-01 09:56] LABS: Add Manual Diff / Slide Review NO; Basophils Absolute Auto 0 /uL (0-100); Basophils Percent Auto 0.7 % (0-2); Eosinophils Absolute Auto 100 /uL (0-450); Hematocrit 39.1 % (36-46); Hemoglobin 13.3 g/dL (12.0-16.0); Lymphocytes Absolute Auto 1700 /uL (1100-4500); Lymphocytes Percent Auto 28.1 % (25-40); Mean Corpuscular Hemoglobin 34.4 PG (26-34); Mean Corpuscular Volume 101.3 fL (80-100); Monocytes Absolute Auto 500 /uL (0-900); Neutrophils Absolute Auto 3700 /uL (1500-7000); Neutrophils Percent Auto 62.2 % (50-75); Platelet Count 344 X10^3/uL (150-400); Red Blood Cell Count 3.86 X10^6/uL (4.0-5.2); Red Cell Distribution Width 13.2 % (11.6-14.8); White Blood Cell Count 5.9 X10^3/uL (4.5-11.0)
[2023-03-01 10:11] LABS: PTT Partial Thromboplastin Tim 30 SECONDS (26-36)
[2023-03-01 10:15] LABS: Alanine Aminotransferase 26 IU/L (<35); Albumin 4.3 g/dL (3.5-5.0); Albumin Globulin Ratio 1.6 (1.0-2.8); Alkaline Phosphatase 82 U/L (38-126); Aspartate Aminotransferase 27 IU/L (14-36); Bilirubin Total 0.4 mg/dL (0.2-1.3); Blood Urea Nitrogen 9 mg/dL (7-17); Calcium 8.9 mg/dL (8.4-10.2); Carbon Dioxide 27 mmol/L (22-32); Chloride 108 mmol/L (98-107); Creatine Kinase 56 U/L (30-135); Estimated Glomerular Filt Rate > 60 mL/min (>60); Globulin 2.7 g/dL (1.7-4.1); Glucose 94 mg/dL (80-110); HEMOLYSIS < 15 (0-50); Lipase 156 U/L (23-300); Potassium 3.9 mmol/L (3.4-5.1); Sodium 140 mmol/L (137-145)
--- NOTE | 2023-03-01 10:15 | PC.NURSE ---
prior to administration of IV labetolol, BP had decreased to 170/80s, notified provider and verbal order to hold medication was given. bP on Q15min. pt states she is still feeling dizzy currently, no worse of better than previously
[2023-03-01 10:25] LABS: Troponin I < 0.012 ng/mL (0.01-0.034)
== END 2023-03-01 12:00 | disposition home or self-care (01) ==
PROVIDERS: Emergency Provider Emergency Medicine; PCP Family Medicine
DX: I10 Essential (primary) hypertension (principal); R07.9 Chest pain, unspecified
CPT/HCPCS: 36415; 70496; 70498; 71045; 80053; 82550; 83690; 83735; 84484; 85025; 85610; 85730; 93005; 93010; 99284; Q9967

== ENCOUNTER → 2023-04-29 11:17 | Outpatient (CLI) | payer MEDICARE, OTHER, SELFPAY ==
[2021-01-04 22:39] VITALS: BMI 28.3
--- NOTE | 2023-04-29 | DI.MG.S_ITS ---
BILATERAL DIGITAL SCREENING MAMMOGRAM 3D/2D WITH CAD: 04/29/2023 CLINICAL: Routine screening. No prior exams were available for comparison. Both breasts are almost entirely fatty (category a/<25% glandular tissue). Current study was also evaluated with a Computer Aided Detection (CAD) system. There are benign calcifications in both breasts. No significant masses, calcifications, or other findings are seen in either breast. IMPRESSION: BENIGN There is no mammographic evidence of malignancy. A 1 year screening mammogram is recommended. Based on the Tyrer Cuzick model (a risk assessment model) the patient's lifetime risk is 2.1% and her 10 year risk is 1.1%. According to the ACR, ACS, and NCCN guidelines, an annual breast MRI exam along with mammogram is recommended if the patient's lifetime risk is 20% or greater. This exam was interpreted at Station ID: [id number]. NOTE: For mammograms, a report in lay terms will be sent to the patient. Approximately 15% of breast malignancies will not be visualized mammographically. In the management of a palpable breast mass, a negative mammogram must not discourage biopsy of a clinically suspicious lesion. Electronically Signed By: Kwaku rojas/kylie:04/29/2023 11:48:29 letter sent: Normal Exam ACR BI-RADS Category 2: Benign Finding(s) [id number]
== END ==
PROVIDERS: PCP Family Medicine; Referring Provider Family Medicine; Visit Provider Family Medicine
DX: Z12.31 Encounter for screening mammogram for malignant neoplasm of breast (principal)
CPT/HCPCS: 77063; 77067

== ENCOUNTER → 2024-01-12 12:21 | Outpatient (CLI) | payer MEDICARE, OTHER, SELFPAY ==
[2021-01-04 22:39] VITALS: BMI 28.3
== END ==
PROVIDERS: PCP Family Medicine; Visit Provider Physician Assistant Medical
DX: H44.002 Unspecified purulent endophthalmitis, left eye (principal)
CPT/HCPCS: 87070; 87077; 87186; 87205

== ENCOUNTER 2024-01-23 13:47 | Emergency (ER) | payer MEDICARE, OTHER, SELFPAY ==
[2021-01-04 22:39] VITALS: BMI 28.3
[2024-01-23] VITALS (18 sets, daily range): BP systolic 126–181; BP diastolic 73–116; PULSE 80–91; RESP 13–18; TEMP 36.6–37; O2SAT 92–96; BMI 30.1
--- NOTE | 2024-01-23 14:09 | ED.FALL ---
HPI - Fall <Tomi Durand PA-C - Last Filed: 01/24/24 11:07> General Chief Complaint: Fall Stated Complaint: fall and hit head Time Seen by Provider: 01/23/24 14:03 Source: patient Mode of arrival: Ambulatory History of Present Illness HPI Narrative: This is a 68-year-old female presents to the emergency department due to a mechanical ground level fall last night after tripping over a sheet. She states she fell backwards into the back of her head and reporting head pain as well as mild neck soreness. She denies any pain to the rest of her body. She states she was not lose conscious. Denies any dizziness, nausea, vomiting, or any other concerning signs or symptoms. Does have a history of 2 strokes in the past which has left her with some residual cognitive deficits, where she was ?unable to find the right word ?but no other deficits. Related Data Home Medications Medication Instructions Recorded Confirmed [id number] ac 400 1 tab PO DAILY 05/05/19 01/04/21 mcg-calcium carb 500 mg-vit K1 20 mcg tablet (Women's 50 Plus Multivitamin) omeprazole 20 mg capsule,delayed 20 mg PO BID 12/09/19 01/04/21 release diphenhydramine 25 1 tab PO BEDTIME PRN Sleep 01/04/21 01/04/21 mg-acetaminophen 500 mg tablet (Tylenol PM Extra Strength) eszopiclone 1 mg tablet (Lunesta) 2 mg PO BEDTIME 01/04/21 01/04/21 artificial tears(hypromellose) 0.3 EYE-BOTH 01/12/24 01/12/24 % eye gel (Systane Gel) Previous Rx's Medication Instructions Recorded clopidogrel 75 mg tablet (Plavix) 75 mg PO DAILY #20 tabs 11/01/20 aspirin 81 mg tablet,delayed 81 mg PO DAILY #30 tabs 01/05/21 release atorvastatin 40 mg tablet 40 mg PO QPM #30 tabs 01/05/21 sulfamethoxazole 800 1 tab PO Q12H 7 days #14 tabs 01/20/24 mg-trimethoprim 160 mg tablet (Bactrim DS) Allergies Allergy/AdvReac Type Severity Reaction Status Date / Time adhesive tape Allergy Severe Itching Verified 01/23/24 13:59 w/prolonged use erythromycin base AdvReac Severe Stomach Verified 01/23/24 13:59 [ERYTHROMYCIN BASE] cramps Review of Systems <Tomi Durand PA-C - Last Filed: 01/24/24 11:07> Review of Systems Narrative: GENERAL: Denies chills, fatigue, malaise, fever, sweats. HEENT: Reports head and neck pain, Denies sinus pain, ear pain, sore throat, difficulty swallowing, dizziness. RESPIRATORY: Denies dyspnea, cough, wheezing, hemoptysis, sputum. CARDIOVASCULAR: Denies chest pain, palpitations, orthopnea, edema, GASTROINTESTINAL: Denies nausea, vomiting, abdominal pain, diarrhea, constipation, melena. : Denies dysuria, frequency, incontinence, hematuria, urinary retention. MUSCULOSKELETAL: denies weakness, joint pain, or bony pain SKIN: Denies rash, skin lesions, or other NEUROLOGIC: Denies weakness, headache, numbness, change in speech, confusion, seizures, incoordination. PSYCHIATRIC: No concerning psychosocial issues. 12 point review of systems is negative except for those stated above Patient History <Tomi Durand PA-C - Last Filed: 01/24/24 11:07> Medical History Ankle pain (2015) Anxiety Cerebrovascular accident Chickenpox (1957) Colon polyps (2009) Depression Eating disorder Fractures GERD (gastroesophageal reflux disease) (2000) Heavy menstrual period (1979) Hemorrhoids (1980) Measles (1957) Mumps (1958) Numbness and tingling Painful menstrual periods PTSD (post-traumatic stress disorder) (2014) Seasonal allergies Substance abuse (2015) Surgical History History of back surgery (1989) History of Vaughn-en-Y gastric bypass (2008) History of surgery on arm (~2008) History of tonsillectomy and adenoidectomy (1959) Hx of cholecystectomy (~2012) Hx of hysterectomy (1981) Hx of knee surgery (2015) Hx of varicose veins (~1994) S/P epidural steroid injection (12/02/19) Family History Father Heart failure Hypertension Hyperlipidemia Mental health problem Substance abuse Depression Mother PAD (peripheral artery disease) Alzheimer's disease Hypertension Hyperlipidemia Mental health problem Osteoporosis Brother No problems noted. Grandfather Heart disease Grandmother Depression Grandfather Depression Grandmother Stroke Family/Other Depression ADHD (attention deficit hyperactivity disorder) Aspergers' syndrome Family/Other Anxiety Social History household members: spouse Smoking Status: Former smoker Tobacco: How many years used: 25 alcohol intake: former Smoking Status: Former smoker alcohol intake frequency: holidays/special occasions only Alcohol type: wine Substance Use Type: does not use Exam <Tomi Durand PA-C - Last Filed: 01/24/24 11:07> Narrative Exam Narrative: GENERAL: Well-developed patient, in mild distress. HEAD: Atraumatic. Normocephalic. EYES: Pupils equal round and reactive. Extraocular motions intact. No scleral icterus. No injection or drainage. ENT: Nose without bleeding, purulent drainage. Throat without erythema, tonsillar hypertrophy or exudate. Airway patent. NECK: Trachea midline. Non tender EXTREMITIES: No edema or joint tenderness. NEURO: AOx3. Cranial nerves 2-12 intact. SKIN: No rash or erythema of visible areas Initial Vital Signs Initial Vital Signs: Vital Signs Temperature 98.6 F 01/23/24 13:53 Pulse Rate 91 H 01/23/24 13:53 Respiratory Rate 16 01/23/24 13:53 Blood Pressure 181/95 H 01/23/24 13:53 Pulse Oximetry 96 01/23/24 13:53 Oxygen Delivery Method Room Air 01/23/24 13:53 <Del Yi DO - Last Filed: 01/24/24 11:07> Initial Vital Signs Initial Vital Signs: Vital Signs Temperature 98.6 F 01/23/24 13:53 Pulse Rate 91 H 01/23/24 13:53 Respiratory Rate 16 01/23/24 13:53 Blood Pressure 181/95 H 01/23/24 13:53 Pulse Oximetry 96 01/23/24 13:53 Oxygen Delivery Method Room Air 01/23/24 13:53 Course <Tomi Durand PA-C - Last Filed: 01/24/24 11:07> Orders Ordered: Discontinued Medications Acetaminophen (Acetaminophen 325 Mg Tablet) 650 mg PO NOW ONE Stop: 01/23/24 16:08 Last Admin: 01/23/24 16:11 Dose: 650 mg Documented By: RB Acetaminophen (Acetaminophen 325 Mg Tablet) 325 mg PO NOW ONE Stop: 01/23/24 17:39 Last Admin: 01/23/24 17:57 Dose: 325 mg Documented By: RB Ondansetron HCl (Ondansetron 4 Mg Odt) 4 mg SL NOW ONE Stop: 01/23/24 16:15 Last Admin: 01/23/24 16:17 Dose: 4 mg Documented By: RB Sodium Chloride (Sodium Chloride 0.9% Flush) 10 ml IV BID MAXIMINO Sodium Chloride (Sodium Chloride 0.9% Flush) 10 ml IV PRN PRN PRN Reason: Flush Consultations Consultation #1: [id number] : Discussed pt w/ [facility] NSGY nursing team who will reach out to NSGY team to review Consultation #2: [id number]: Discussed case w/ Dr. Manzanares of [facility] who recommended a repeat head CT at the four hour oral, if stable can discharge. Recommending holding plavix and ASA for one week. Vital Signs Vital signs: Vital Signs - 8 hr 01/23/24 13:53 01/23/24 15:37 01/23/24 15:47 Temperature 98.6 F Pulse Rate 91 H 87 88 Respiratory Rate 16 18 18 Blood Pressure 181/95 H 172/91 H 155/116 H Pulse Oximetry 96 94 96 Oxygen Delivery Method Room Air Room Air Room Air 01/23/24 16:02 01/23/24 16:35 01/23/24 16:47 Temperature Pulse Rate 88 88 89 Respiratory Rate 13 18 18 Blood Pressure 162/91 H 175/97 H 142/82 H Pulse Oximetry 95 95 95 Oxygen Delivery Method Room Air Room Air Room Air 01/23/24 16:50 01/23/24 17:00 01/23/24 17:10 Temperature Pulse Rate 87 88 84 Respiratory Rate Blood Pressure 139/85 128/80 132/79 Pulse Oximetry 94 94 94 Oxygen Delivery Method Room Air 01/23/24 17:20 01/23/24 17:30 Temperature Pulse Rate 85 83 Respiratory Rate Blood Pressure 134/81 129/75 Pulse Oximetry 94 94 Oxygen Delivery Method Room Air Room Air <Del Yi DO - Last Filed: 01/24/24 11:07> Orders Ordered: Discontinued Medications Acetaminophen (Acetaminophen 325 Mg Tablet) 650 mg PO NOW ONE Stop: 01/23/24 16:08 Last Admin: 01/23/24 16:11 Dose: 650 mg Documented By: RB Acetaminophen (Acetaminophen 325 Mg Tablet) 325 mg PO NOW ONE Stop: 01/23/24 17:39 Last Admin: 01/23/24 17:57 Dose: 325 mg Documented By: RB Ondansetron HCl (Ondansetron 4 Mg Odt) 4 mg SL NOW ONE Stop: 01/23/24 16:15 Last Admin: 01/23/24 16:17 Dose: 4 mg Documented By: RB Sodium Chloride (Sodium Chloride 0.9% Flush) 10 ml IV BID MAXIMINO Sodium Chloride (Sodium Chloride 0.9% Flush) 10 ml IV PRN PRN PRN Reason: Flush Vital Signs Vital signs: Vital Signs - 8 hr 01/23/24 13:53 01/23/24 15:37 01/23/24 15:47 Temperature 98.6 F Pulse Rate 91 H 87 88 Respiratory Rate 16 18 18 Blood Pressure 181/95 H 172/91 H 155/116 H Pulse Oximetry 96 94 96 Oxygen Delivery Method Room Air Room Air Room Air 01/23/24 16:02 01/23/24 16:35 01/23/24 16:47 Temperature Pulse Rate 88 88 89 Respiratory Rate 13 18 18 Blood Pressure 162/91 H 175/97 H 142/82 H Pulse Oximetry 95 95 95 Oxygen Delivery Method Room Air Room Air Room Air 01/23/24 16:50 01/23/24 17:00 01/23/24 17:10 Temperature Pulse Rate 87 88 84 Respiratory Rate Blood Pressure 139/85 128/80 132/79 Pulse Oximetry 94 94 94 Oxygen Delivery Method Room Air 01/23/24 17:20 01/23/24 17:30 Temperature Pulse Rate 85 83 Respiratory Rate Blood Pressure 134/81 129/75 Pulse Oximetry 94 94 Oxygen Delivery Method Room Air Room Air MDM - Fall <Tomi Durand PA-C - Last Filed: 01/24/24 11:07> Lab Data 01/23/24 15:05 01/23/24 15:05 Labs: Lab Results 01/23/24 Range/Units 15:05 WBC 8.4 (4.5-11.0) X10^3/uL RBC 3.92 L (4.0-5.2) X10^6/uL Hgb 13.7 (12.0-16.0) g/dL Hct 40.9 (36-46) % MCV 104.4 H (80-100) fL MCH 34.9 H (26-34) PG MCHC 33.4 (30-36) % RDW 13.5 (11.6-14.8) % Plt Count 387 (150-400) X10^3/uL Neut % (Auto) 66.9 (50-75) % Lymph % (Auto) 23.4 L (25-40) % [place] % (Auto) 8.2 (3-14) % Eos % (Auto) 1.0 L (2-4) % Baso % (Auto) 0.5 (0-2) % Neut # (Auto) 5600 (2794-2074) /uL Lymph # (Auto) 2000 (5959-5638) /uL [place] # (Auto) 700 (0-900) /uL Eos # (Auto) 100 (0-450) /uL Baso # (Auto) 0 (0-100) /uL PT 10.6 (9.4-12.5) SECONDS INR 0.9 (0.9-1.3) APTT 34 (25.1-36.5) SECONDS Sodium 137 (137-145) mmol/L Potassium 4.4 (3.4-5.1) mmol/L Chloride 105 (98-107) mmol/L Carbon Dioxide 24 (22-32) mmol/L BUN 14 (7-17) mg/dL Creatinine 0.79 (0.52-1.04) mg/dL Estimated GFR > 60 (>60) mL/min BUN/Creatinine Ratio 17.7 (6-22) Glucose 97 (80-110) mg/dL Calcium 9.2 (8.4-10.2) mg/dL Total Bilirubin 0.7 (0.2-1.3) mg/dL AST 39 H (14-36) IU/L ALT 28 (<35) IU/L Alkaline Phosphatase 110 (38-126) U/L Total Protein 7.6 (6.3-8.2) g/dL Albumin 4.8 (3.5-5.0) g/dL Globulin 2.8 (1.7-4.1) g/dL Albumin/Globulin Ratio 1.7 (1.0-2.8) Imaging Data CT scan - head: Radiologist's Impression: [address] [address] [address] Scan Report Signed Patient: Yuly Brizuela MR#: [id number] : 1955 Acct:[id number] Age/Sex: 68 / F Date of Service: 01/23/24 Loc: ED Accession Number: [id number] Procedure: CT head/brain wo con Ordering Provider: Tomi Durand P.A-C PROCEDURE: CT HEAD/BRAIN WO CON INDICATIONS: Head injury on thinners TECHNIQUE: Noncontrast 4.5 mm thick angled axial sections acquired from the foramen magnum to the vertex, with coronal and sagittal reformats. For radiation dose reduction, the following was used: automated exposure control, adjustment of mA and/or kV according to patient size. COMPARISON: [facility], CT, CT HEAD/BRAIN WO CON, 01/04/2021, 19:02. FINDINGS: Image quality: Diagnostic. CSF spaces: Basal cisterns are patent. No extra-axial fluid collections. The ventricles are symmetric in size and shape. Brain: Subarachnoid hemorrhage overlying the left cerebral convexity (series 4, image 23 and series 4, image 25). Additional small focus of hemorrhage along the posterior margin of the brainstem (series 2, image 12). No mass effect. No midline shift. Skull and face: Large scalp hematoma without underlying fracture. Sinuses: Visualized sinuses and mastoids are clear. IMPRESSION: Multifocal , small volume subarachnoid hemorrhage, as above. No mass effect or midline shift. Large right posterior scalp hematoma. Findings discussed with Dr. Yi at time of dictation. Dictated by: Glen Nath M.D. on 01/23/2024 at 14:36 Approved by: Glen Nath M.D. on 01/23/2024 at 14:39 CT - cervical spine: Radiologist's Impression: [address] [address] [address] Scan Report Signed Patient: Yuly Brizuela MR#: [id number] : 1955 Acct:[id number] Age/Sex: 68 / F Date of Service: 01/23/24 Loc: ED Accession Number: [id number] Procedure: CT cervical spine wo con Ordering Provider: Tomi Durand P.A-C PROCEDURE: CT CERVICAL SPINE WO CON INDICATIONS: Neck pain after fall TECHNIQUE: Noncontrast 3 mm thick sections acquired from the skull base to the T4 level. Sagittal and coronal reformats were then constructed. For radiation dose reduction, the following was used: automated exposure control, adjustment of mA and/or kV according to patient size. COMPARISON: [facility], CT, CT ANGIO HEAD AND NECK, 03/01/2023, 9:52. [facility], CT, CT ANGIO HEAD AND NECK, 01/04/2021, 19:02. FINDINGS: Image quality: Excellent. Bones: No fractures or dislocations. Straightening of the normal cervical lordosis. Mild to moderate multilevel degenerative changes with osteophytosis, disc height loss and facet arthropathy. Visualized superior ribs are intact. Soft tissues: Prevertebral soft tissues are normal in thickness. No paravertebral hematomas. No apical pneumothoraces. Mild calcification of the thoracic aorta. IMPRESSION: 1. No displaced fracture or traumatic subluxation. 2. Cyei-fv-ruzurxzh multilevel degenerative changes of the cervical spine with straightening of the normal cervical lordosis. Dictated by: Natalia Garg M.D. on 01/23/2024 at 15:01 Approved by: Natalia Garg M.D. on 01/23/2024 at 15:[address] : Radiologist's Impression: [place] [address] CT Scan Report Signed Patient: Yuly Brizuela MR#: [id number] : 1955 Acct:[id number] Age/Sex: 68 / F Date of Service: 01/23/24 Loc: ED Accession Number: [id number] Procedure: CT head/brain wo con Ordering Provider: Tomi Durand P.A-C PROCEDURE: CT HEAD/BRAIN WO CON INDICATIONS: repeat head CT TECHNIQUE: Noncontrast 4.5 mm thick angled axial sections acquired from the foramen magnum to the vertex, with coronal and sagittal reformats. For radiation dose reduction, the following was used: automated exposure control, adjustment of mA and/or kV according to patient size. COMPARISON: [facility], CT, CT CERVICAL SPINE WO CON, 01/23/2024, 14:22. [facility], CT, CT HEAD/BRAIN WO CON, 01/23/2024, 14:22. [facility], CT, CT ANGIO HEAD AND NECK, 03/01/2023, 9:52. FINDINGS: Image quality: Diagnostic. CSF spaces: Basal cisterns are patent. No extra-axial fluid collections. The ventricles are symmetric in size and shape. Brain: Several sites of subarachnoid hemorrhage can be seen, including involving the superior left frontal lobe and within the right basal cistern. The volume of the hemorrhage appears minimally less compared to the recent prior. No new areas of hemorrhage can be seen. No intracranial masses. There is cerebral volume loss for age, with resultant ventricular and sulcal prominence. There are periventricular and deep white matter chronic small vessel ischemic changes. There is intracranial internal carotid artery atherosclerosis. Skull and face: Significant scalp hematoma can be seen involving the right parietal region. No associated calvarial fracture can be seen. Calvarium and visualized facial bones appear intact, without suspicious lesions. Sinuses: Visualized sinuses and mastoids are clear. IMPRESSION: There is acute intracranial hemorrhage seen. The volume of the hemorrhage is minimally less on the current study than on the prior, which is suggestive of a slight amount of interval resorption/redistribution of the hemorrhage. No new areas of hemorrhage can be seen. There is a significant right parietal scalp hematoma seen. Dictated by: Silverio Lake M.D. on 01/23/2024 at 17:52 Approved by: Silverio Lake M.D. on 01/23/2024 at 17:55 MDM Narrative Medical decision making narrative: ED course: This is a 68-year-old female presents emergency department due to a mechanical fall last night leading to head trauma. She takes ASA 81 mg daily as well as Plavix [address] was ordered which showed a multifocal small volume subarachnoid hemorrhage without mass effect or midline shift. There were no neuro deficits on physical exam. These findings were discussed with [facility] neurosurgery who recommended a repeat head CT at the 4 hour oral as well as holding aspirin and Plavix for a week after discharge. If repeat head CT stable then can discharge. Repeat CT was ordered which showed no worsening changes as well as a minimally less amount of hemorrhage. Patient was discharged with instructions to follow up with primary care provider to discuss re-initiation aspirin. Patient did not experience any neuro changes during the course of the encounter. CC: Head injury Complicating co-morbidities: History of left temporoparietal lobe ischemic stroke in 2020. Data collected from: Previous notes Medical records reviewed: Patient was last seen in this emergency department about 2 months ago due to hypertension. History of hypertension, peripheral arterial disease, CVA. Presenting due to 1 week of dizziness. History PTSD and substance abuse as well. No evidence of end-organ organ damage patient was eventually discharged. Differential considered, but not limited to: Ischemic stroke, hemorrhagic stroke, TIA Exam documented above, pertinent findings include: No neuro deficits noted on exam Lab Test results independently reviewed as above. Pertinent findings: Lab work unremarkable Imaging studies independently reviewed: Yes, as above Scores Used: None MIPS Elements: None Consultations: None Treatments: Tylenol 650 for headache Re-evaluations: Multiple re-evaluations and no obvious changes in neuro status or function Discussion: Discussed plan with the patient was comfortable with the plan Diagnosis: Intracranial bleed Disposition: see below, along with detailed discharge instructions that have been reviewed with patient as well as indications for ED re-evaluation and additional outpatient follow up <Del Yi DO - Last Filed: 01/24/24 11:07> Lab Data Labs: Lab Results 01/23/24 Range/Units 15:05 WBC 8.4 (4.5-11.0) X10^3/uL RBC 3.92 L (4.0-5.2) X10^6/uL Hgb 13.7 (12.0-16.0) g/dL Hct 40.9 (36-46) % MCV 104.4 H (80-100) fL MCH 34.9 H (26-34) PG MCHC 33.4 (30-36) % RDW 13.5 (11.6-14.8) % Plt Count 387 (150-400) X10^3/uL Neut % (Auto) 66.9 (50-75) % Lymph % (Auto) 23.4 L (25-40) % [place] % (Auto) 8.2 (3-14) % Eos % (Auto) 1.0 L (2-4) % Baso % (Auto) 0.5 (0-2) % Neut # (Auto) 5600 (8066-7476) /uL Lymph # (Auto) 2000 (5272-6924) /uL [place] # (Auto) 700 (0-900) /uL Eos # (Auto) 100 (0-450) /uL Baso # (Auto) 0 (0-100) /uL PT 10.6 (9.4-12.5) SECONDS INR 0.9 (0.9-1.3) APTT 34 (25.1-36.5) SECONDS Sodium 137 (137-145) mmol/L Potassium 4.4 (3.4-5.1) mmol/L Chloride 105 (98-107) mmol/L Carbon Dioxide 24 (22-32) mmol/L BUN 14 (7-17) mg/dL Creatinine 0.79 (0.52-1.04) mg/dL Estimated GFR > 60 (>60) mL/min BUN/Creatinine Ratio 17.7 (6-22) Glucose 97 (80-110) mg/dL Calcium 9.2 (8.4-10.2) mg/dL Total Bilirubin 0.7 (0.2-1.3) mg/dL AST 39 H (14-36) IU/L ALT 28 (<35) IU/L Alkaline Phosphatase 110 (38-126) U/L Total Protein 7.6 (6.3-8.2) g/dL Albumin 4.8 (3.5-5.0) g/dL Globulin 2.8 (1.7-4.1) g/dL Albumin/Globulin Ratio 1.7 (1.0-2.8) Discharge Plan Departure Patient Disposition: Home Clinical Impression: Cerebrovascular accident Activity Restrictions/Additional Instructions: Thank you for coming to the [facility] Emergency Department today. Your repeat head CT was reassuring and showed that the bleed was stable.. Please do not take the aspirin or Plavix until you are able to follow up with the primary care provider to discuss initiation. Definitely hold for at least 1 week. Please follow up with the primary care provider within the week to discuss re-initiation. Please return to the emergency department if you develop any slurred speech, weakness, or any other concerning signs or symptoms. I hope you feel better soon. Please follow up with your primary care provider within a week if your symptoms continue. If you do not have a primary care provider please contact the [facility] Resource line at [phone]. They will ask some questions about your medical history and help you get set up with a provider in the community. Prescriptions: No Action Systane Gel 0.3 % gel EYE-BOTH sulfamethoxazole-trimethoprim [Bactrim DS] 800-160 mg tablet 1 tab PO Q12H 7 Days Qty: 14 0RF Women's 50 Plus Multivitamin 400 mcg-500 mg calcium-20 mcg tablet 1 tab PO DAILY omeprazole 20 mg capsule,delayed release(DR/EC) 20 mg PO BID eszopiclone [Lunesta] 1 mg Tablet 2 mg PO BEDTIME diphenhydramine-acetaminophen [Tylenol PM Extra Strength] 25-500 mg Tablet 1 tab PO BEDTIME PRN (Reason: Sleep) atorvastatin 40 mg tablet 40 mg PO QPM Qty: 30 0RF aspirin 81 mg Tablet,Delayed Release (Dr/Ec) 81 mg PO DAILY Qty: 30 0RF clopidogrel [Plavix] 75 mg tablet 75 mg PO DAILY Qty: 20 0RF Referrals: Pamela Sloan DO [Primary Care Provider] - Stand Alone Forms: Patient Portal/API ED Sign-out <Del Yi DO - Last Filed: 01/24/24 11:07> [facility] Dr Yi Co-Sign Statement: I was available for consultation during this patient's emergency department visit. This chart is signed by myself for administrative purposes only. I did not have direct contact with this patient during this visit. They were seen independently by the APC.
--- NOTE | 2024-01-23 14:14 | DI.CT.S_ITS ---
PROCEDURE: CT HEAD/BRAIN WO CON INDICATIONS: Head injury on thinners TECHNIQUE: Noncontrast 4.5 mm thick angled axial sections acquired from the foramen magnum to the vertex, with coronal and sagittal reformats. For radiation dose reduction, the following was used: automated exposure control, adjustment of mA and/or kV according to patient size. COMPARISON: [facility], CT, CT HEAD/BRAIN WO CON, 01/04/2021, 19:02. FINDINGS: Image quality: Diagnostic. CSF spaces: Basal cisterns are patent. No extra-axial fluid collections. The ventricles are symmetric in size and shape. Brain: Subarachnoid hemorrhage overlying the left cerebral convexity (series 4, image 23 and series 4, image 25). Additional small focus of hemorrhage along the posterior margin of the brainstem (series 2, image 12). No mass effect. No midline shift. Skull and face: Large scalp hematoma without underlying fracture. Sinuses: Visualized sinuses and mastoids are clear. IMPRESSION: Multifocal , small volume subarachnoid hemorrhage, as above. No mass effect or midline shift. Large right posterior scalp hematoma. Findings discussed with Dr. Yi at time of dictation. Dictated by: Glen Nath M.D. on 01/23/2024 at 14:36 Approved by: Glen Nath M.D. on 01/23/2024 at 14:39
--- NOTE | 2024-01-23 14:14 | DI.CT.S_ITS ---
PROCEDURE: CT CERVICAL SPINE WO CON INDICATIONS: Neck pain after fall TECHNIQUE: Noncontrast 3 mm thick sections acquired from the skull base to the T4 level. Sagittal and coronal reformats were then constructed. For radiation dose reduction, the following was used: automated exposure control, adjustment of mA and/or kV according to patient size. COMPARISON: [facility], CT, CT ANGIO HEAD AND NECK, 03/01/2023, 9:52. [facility], CT, CT ANGIO HEAD AND NECK, 01/04/2021, 19:02. FINDINGS: Image quality: Excellent. Bones: No fractures or dislocations. Straightening of the normal cervical lordosis. Mild to moderate multilevel degenerative changes with osteophytosis, disc height loss and facet arthropathy. Visualized superior ribs are intact. Soft tissues: Prevertebral soft tissues are normal in thickness. No paravertebral hematomas. No apical pneumothoraces. Mild calcification of the thoracic aorta. IMPRESSION: 1. No displaced fracture or traumatic subluxation. 2. Yjoe-ai-gmvznsor multilevel degenerative changes of the cervical spine with straightening of the normal cervical lordosis. Dictated by: Natalia Garg M.D. on 01/23/2024 at 15:01 Approved by: Natalia Garg M.D. on 01/23/2024 at 15:08
--- NOTE | 2024-01-23 14:58 | PC.NURSE ---
This RN was with Student RN entire time during assessment and agree with student assessment that is placed in the medical record.
[2024-01-23 15:21] LABS: Add Manual Diff / Slide Review NO; Basophils Absolute Auto 0 /uL (0-100); Basophils Percent Auto 0.5 % (0-2); Eosinophils Absolute Auto 100 /uL (0-450); Hematocrit 40.9 % (36-46); Hemoglobin 13.7 g/dL (12.0-16.0); Lymphocytes Absolute Auto 2000 /uL (1100-4500); Lymphocytes Percent Auto 23.4 % (25-40); Mean Corpuscular HGB Conc 33.4 % (30-36); Mean Corpuscular Hemoglobin 34.9 PG (26-34); Mean Corpuscular Volume 104.4 fL (80-100); Monocytes Absolute Auto 700 /uL (0-900); Monocytes Percent Auto 8.2 % (3-14); Neutrophils Absolute Auto 5600 /uL (1500-7000); Neutrophils Percent Auto 66.9 % (50-75); Platelet Count 387 X10^3/uL (150-400); Red Blood Cell Count 3.92 X10^6/uL (4.0-5.2); Red Cell Distribution Width 13.5 % (11.6-14.8); White Blood Cell Count 8.4 X10^3/uL (4.5-11.0)
[2024-01-23 15:31] LABS: INR 0.9 (0.9-1.3); Prothrombin Time 10.6 SECONDS (9.4-12.5)
[2024-01-23 15:33] LABS: PTT Partial Thromboplastin Tim 34 SECONDS (25.1-36.5)
[2024-01-23 15:38] LABS: Alanine Aminotransferase 28 IU/L (<35); Albumin 4.8 g/dL (3.5-5.0); Albumin Globulin Ratio 1.7 (1.0-2.8); Alkaline Phosphatase 110 U/L (38-126); Aspartate Aminotransferase 39 IU/L (14-36); BUN Creatinine Ratio 17.7 (6-22); Bilirubin Total 0.7 mg/dL (0.2-1.3); Blood Urea Nitrogen 14 mg/dL (7-17); Calcium 9.2 mg/dL (8.4-10.2); Carbon Dioxide 24 mmol/L (22-32); Chloride 105 mmol/L (98-107); Estimated Glomerular Filt Rate > 60 mL/min (>60); Globulin 2.8 g/dL (1.7-4.1); Glucose 97 mg/dL (80-110); HEMOLYSIS < 15 (0-50); Potassium 4.4 mmol/L (3.4-5.1); Sodium 137 mmol/L (137-145); Total Protein 7.6 g/dL (6.3-8.2)
--- NOTE | 2024-01-23 15:48 | PC.NURSE ---
This RN informed provider of patient elevated blood pressure reading of 155/116. Provider noted and no new orders were given.
--- NOTE | 2024-01-23 16:07 | PC.NURSE ---
This RN informed provider of patient constant 9/10 head pain. Provider ordered placed pain medication order.
[2024-01-23] MEDS: ACETAMINOPHEN 325 MG TABLET 650 MG PO (16:11)
[2024-01-23] MEDS: ONDANSETRON 4 MG ODT SL (16:17)
--- NOTE | 2024-01-23 17:38 | PC.NURSE ---
This RN informed provider of patient updated pain scale for her head.
[2024-01-23] MEDS: ACETAMINOPHEN 325 MG TABLET PO (17:57)
--- NOTE | 2024-01-23 18:15 | DI.CT.S_ITS ---
PROCEDURE: CT HEAD/BRAIN WO CON INDICATIONS: repeat head CT TECHNIQUE: Noncontrast 4.5 mm thick angled axial sections acquired from the foramen magnum to the vertex, with coronal and sagittal reformats. For radiation dose reduction, the following was used: automated exposure control, adjustment of mA and/or kV according to patient size. COMPARISON: [facility], CT, CT CERVICAL SPINE WO CON, 01/23/2024, 14:22. [facility], CT, CT HEAD/BRAIN WO CON, 01/23/2024, 14:22. [facility], CT, CT ANGIO HEAD AND NECK, 03/01/2023, 9:52. FINDINGS: Image quality: Diagnostic. CSF spaces: Basal cisterns are patent. No extra-axial fluid collections. The ventricles are symmetric in size and shape. Brain: Several sites of subarachnoid hemorrhage can be seen, including involving the superior left frontal lobe and within the right basal cistern. The volume of the hemorrhage appears minimally less compared to the recent prior. No new areas of hemorrhage can be seen. No intracranial masses. There is cerebral volume loss for age, with resultant ventricular and sulcal prominence. There are periventricular and deep white matter chronic small vessel ischemic changes. There is intracranial internal carotid artery atherosclerosis. Skull and face: Significant scalp hematoma can be seen involving the right parietal region. No associated calvarial fracture can be seen. Calvarium and visualized facial bones appear intact, without suspicious lesions. Sinuses: Visualized sinuses and mastoids are clear. IMPRESSION: There is acute intracranial hemorrhage seen. The volume of the hemorrhage is minimally less on the current study than on the prior, which is suggestive of a slight amount of interval resorption/redistribution of the hemorrhage. No new areas of hemorrhage can be seen. There is a significant right parietal scalp hematoma seen. Dictated by: Silverio Lake M.D. on 01/23/2024 at 17:52 Approved by: Silverio Lake M.D. on 01/23/2024 at 17:55
== END 2024-01-23 19:15 | disposition home or self-care (01) ==
PROVIDERS: Emergency Provider Physician Assistant Medical; PCP Family Medicine
DX: S06.6X0A Traumatic subarachnoid hemorrhage without loss of consciousness, initial encounter (principal); M54.2 Cervicalgia; W01.0XXA Fall on same level from slipping, tripping and stumbling without subsequent striking against object, initial encounter; Z79.02 Long term (current) use of antithrombotics/antiplatelets; Z79.82 Long term (current) use of aspirin
CPT/HCPCS: 36415; 70450; 72125; 80053; 85025; 85610; 85730; 99284

== ENCOUNTER 2024-04-21 10:30 | Outpatient (RCR) | payer MEDICARE, OTHER, SELFPAY ==
[2021-01-04 22:39] VITALS: BMI 28.3
--- NOTE | 2024-03-23 13:19 | PT.OIE ---
Current Diagnoses Other chronic pain (03/23/24) Other spondylosis, cervical region (03/23/24) Cervicalgia (03/23/24) Pain in thoracic spine (03/23/24) Concussion with loss of consciousness status unknown, sequela (03/23/24) Diffuse traumatic brain injury with loss of consciousness of unspecified duration, sequela (03/23/24) Past Medical History (Last Reviewed 03/01/23 @ 09:58 by Almita Watson DO) Ankle pain (2015) Anxiety Cerebrovascular accident Chickenpox (1957) Colon polyps (2009) Depression Eating disorder Fractures GERD (gastroesophageal reflux disease) (2000) Heavy menstrual period (1979) Hemorrhoids (1980) Measles (1957) Mumps (1958) Numbness and tingling Painful menstrual periods PTSD (post-traumatic stress disorder) (2014) Seasonal allergies Substance abuse (2015) Past Surgical History (Last Reviewed 03/01/23 @ 09:58 by Almita Watson DO) History of back surgery (1989) History of Vaughn-en-Y gastric bypass (2008) History of surgery on arm (~2008) History of tonsillectomy and adenoidectomy (1959) Hx of cholecystectomy (~2012) Hx of hysterectomy (1981) Hx of knee surgery (2015) Hx of varicose veins (~1994) S/P epidural steroid injection (12/02/19) Visit Care Team Role Provider Type Pamela Sloan DO Attending Provider Non-Staff Family Provider Primary Care Provider Referring Provider Specialty: Family Practice Address: [address] [place] [address], [facility] Email: Physical Therapy Initial Evaluation PT-OP-A Visit Information Start: 03/23/24 08:51 Freq: Status: Active Protocol: Document 03/23/24 09:41 MB (Rec: 03/23/24 10:13 DUNCAN [id number]) Out-Patient Physical Therapy Visit Information Visit Information Visit Type Initial Evaluation Visit Note 10/08 before progress note or by 04/22/24 Visit Start Time 09:41 Visit Stop Time 10:21 Visit Number 1 Number of EGG GATHERER Visits 0 Evaluation Information Evaluation Date 03/23/24 Precautions Precautions Pt with fall and hit head in December 2023 and was found to have several sites of subarachnoid hemorrhage can be seen, including involving the superior left frontal lobe and within the right basal cistern. Neck diagnostics: [id number]-[id number] multilevel degenerative changes of the cervical spine with straightening of the normal cervical lordosis. Gentle manual work only. OP. Allergic to tape in the past. High BP. PT-OP-B Current Condition Start: 03/23/24 08:51 Freq: Status: Active Protocol: Document 03/23/24 09:41 MB (Rec: 03/23/24 10:13 MB [id number]) Current Condition History of Current Condition Onset Date 01/22/24 Current Complaints Neck pain, thoracic pain History of Current Condition Pt with fall and hit head in December 2023 and was found to have several sites of subarachnoid hemorrhage can be seen, including involving the superior left frontal lobe and within the right basal cistern. Neck diagnostics were negative. Pt reports R CHAD several years ago and it did not heal quickly. She did not go for PT . 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 Pt reports a history of falls as well when her fell on her. She had right arm pain at that time. She also bruised her left posterior shoulder. Given fall and head injury with CT findings, PT provides concussion intake form and pt reports: vision changes (not new), ear pressure, pt reports infection in one of her root canals in left lower jaw, pt is taking antibiotics for her eyes, forgetting words since hemorrage, allergies, dizziness with getting up and down, eye pressure changes d/t eye infections, occ headaches . Pt denies: nausea, numbness and tingling, weakness, hearing change, troube swallowing, seizures, roaring/ ringing in the ears, fogginess , chiropractor treatment. Pt has trouble finding words since hemorrhage. She is having a lot of stress filling out paperwork after her 's . Pt just reports the one fall when her sheets wrapped around her when getting up at night and that is when she had brain injury. 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 Pt sleeps on her stomach with her left arm straight and tucked up under her left jaw/ neck with pillow between straight arm and head. Prior Treatments and Tests CT head 01/23/24: There is acute intracranial hemorrhage seen. The volume of the hemorrhage is minimally less on the current study than on the prior, which is suggestive of a slight amount of interval resorption/ redistribution of the hemorrhage. No new areas of hemorrhage can be seen. There is a significant right parietal scalp hematoma seen. Treatment Goals Patient/Caregiver Goals To decrease pain in neck. PT-OP-C Subjective Start: 03/23/24 08:51 Freq: Status: Active Protocol: Document 03/23/24 09:41 MB (Rec: 03/23/24 10:13 MB [id number]) OP-PT Subjective Patient Comments Patient Comments See history of current condition PT-OP-J Posture/Palpation/Skin Start: 03/23/24 08:51 Freq: Status: Active Protocol: Document 03/23/24 09:41 MB (Rec: 03/23/24 13:15 MB [id number]) Posture Evaluation Comments Posture Comments Forward head with head resting in 10 deg extension, left shoulder rounded more anteriorly than the right, Dowager's hump and then decreased thoracic kyphosis, right scapula mildly lower than the left and left iliac crest mildly higher than the right. PT-OP-K Range of Motion Start: 03/23/24 08:51 Freq: Status: Active Protocol: Document 03/23/24 09:41 MB (Rec: 03/23/24 13:15 MB [id number]) Cervical Spine Range of Motion Cervical Spine Active Testing Position Standing Flexion 30 Extension 20 Rotation Left 55 Rotation Right 65 Lateral Flexion Left 11 Lateral Flexion Right 11 Comments Head rests in 10 deg extension Shoulder Goniometric Range of Motion Shoulder Bilateral Shoulder ROM WFL Yes Testing Position Standing PT-OP-M Strength Start: 03/23/24 08:51 Freq: Status: Active Protocol: Document 03/23/24 09:41 MB (Rec: 03/23/24 13:15 MB [id number]) Shoulder Strength Shoulder Manual Muscle Testing Bilateral Flexion 5 Normal Abduction (C5) 5 Normal External Rotation 5 Normal Internal Rotation 5 Normal Elbow/Forearm Strength Elbow and Forearm Manual Muscle Testing Bilateral Flexion (C6) 5 Normal Extension (C7) 5 Normal PT-OP-Q Treatments Start: 03/23/24 08:51 Freq: Status: Active Protocol: Document 03/23/24 09:41 MB (Rec: 03/23/24 13:15 MB [id number]) Self-Care/Home Management Treatment Education Patient Education Body Mechanics,Fall Risk,Joint Protection,Pain Management, Posture Other Education Extensive educaiton about proper sleeping position on side or back or if prone, face hole, but prone is less preferable, ed to increase non -caffeinated fluid intake and especially before coffee, ed in benefits of checking and recording her BP during the day and communicating with her primary doctor, ed in benefits of REMNANTS CUTTER for word finding challenges and counseling for grief assistance PT-OP-T Assessment and Plan Start: 03/23/24 08:51 Freq: Status: Active Protocol: Document 03/23/24 09:41 MB (Rec: 03/23/24 10:13 MB [id number]) Physical Therapy Assessment Rehab Potential Rehabilitation Potential Fair Evaluation Complexity Number of Personal Factors/Comorbidities 1-2 Number of Body Systems Impaired 3 Clinical Presentation at Evaluation Evolving Impairments Impairments Activity Tolerance,Balance, Pain,Posture,ROM,Soft Tissue Mobility,Vestibular Goals 4 Impairment Poor sleeping position likely primary instigator of pain Grey Washer Goal (LTG) Pt will report sleeping in proper sleeping position for cervical and spinal alignment to decrease pain and tension in neck and back. LTG Duration 8 weeks 3 Impairment Lack of HEP Grey Washer Goal (LTG) Pt will perform progressive HEP with I including breathing , postural, gentle flexibility , core, balance and VOR exercises to improve balance and pain. LTG Duration 8 weeks 2 Impairment History of falls and ICH Grey Washer Goal (LTG) Pt will present WNLs on FGA to decrease fall risk and risk of injurying herself again. LTG Duration 8 weeks 1 Impairment SCAT 5 Symptom List score 49/ 132 Impairment Symptoms worse with physical activity and mental activity Prison Goal (LTG) Pt will present with a SCAT 5 symptom score of no more than 20/132 to reflect improved pain and quality of life. 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 Pt reports ongoing intermittent dizziness, tiredness, neck pain, word- finding issues, and increased stress with managing the paperwork regarding her 's . BP is high on assessment and orthostatics are negative. BP and HR in LUE : supine 159/95, 72; standing 163/104, 81; standing 1' 161/ 108, 80. PT will monitor BP during treatment sessions and PT asked pt to communicate with doctor's office about BP as well as to check her own BP at home. During assessment, pt states that her sleeping position is on her stomach with her head rotated to the right and her left arm straight and up under her left jaw and head with pillow between. PT believes that this sleeping position is the primary cause of her left sided symptoms. PT can be very helpful for flexibility, manual and exercise work and it is imperative that pt change her sleeping position for any PT intervention to make lasting gains. Pt is very receptive to education today. She presents with good UE strength, some cervical range limitations and postural changes. Physical Therapy Plan Frequency and Duration Frequency of Treatment 2x/Week Duration of treatment (weeks) 8 Plan of Care Start Date 03/23/24 Plan of Care End Date 05/24/24 Therapeutic Interventions Therapeutic Interventions Balance Training,Canalithic Repositioning,Home Exercise Program,Joint Mobilizations, Manual Therapy,Neuromuscular Re-education,Patient/Caregiver Education,Self-Care/Home Management,Soft Tissue Mobilization,Taping, Therapeutic Activities, Therapeutic Exercises, Vestibular Rehabilitation Modalities Cold Pack/Ice Massage,Hot Packs,Ultrasound Next Visit Focus/Plan Next Note Type Treatment Note Next Visit Plan Monitor BP Buteyko breathing with primary PT Gentle progression of posture, flexibility, core, balance exercises, gentle manual work Consider VOMS and VOR testing with primary PT
--- NOTE | 2024-03-23 13:19 | PT.OPPOC ---
Physical, Occupational & Speech Therapy At [facility] Current Diagnoses Other chronic pain (03/23/24) Other spondylosis, cervical region (03/23/24) Cervicalgia (03/23/24) Pain in thoracic spine (03/23/24) Concussion with loss of consciousness status unknown, sequela (03/23/24) Diffuse traumatic brain injury with loss of consciousness of unspecified duration, sequela (03/23/24) Visit Care Team Role Provider Type Pamela Sloan DO Attending Provider Non-Staff Family Provider Primary Care Provider Referring Provider Specialty: Family Practice Address: [address] [place] [address], [id number] Email: Plan Of Care PT-OP-T Assessment and Plan Start: 03/23/24 08:51 Freq: Status: Active Protocol: Document 03/23/24 09:41 MB (Rec: 03/23/24 10:13 MB [id number]) Physical Therapy Assessment Rehab Potential Rehabilitation Potential Fair Evaluation Complexity Number of Personal Factors/Comorbidities 1-2 Number of Body Systems Impaired 3 Clinical Presentation at Evaluation Evolving Impairments Impairments Activity Tolerance,Balance, Pain,Posture,ROM,Soft Tissue Mobility,Vestibular Goals 4 Impairment Poor sleeping position likely primary instigator of pain Custodial Goal (LTG) Pt will report sleeping in proper sleeping position for cervical and spinal alignment to decrease pain and tension in neck and back. LTG Duration 8 weeks 3 Impairment Lack of HEP Custodial Goal (LTG) Pt will perform progressive HEP with I including breathing , postural, gentle flexibility , core, balance and VOR exercises to improve balance and pain. LTG Duration 8 weeks 2 Impairment History of falls and ICH Photograph Developer Goal (LTG) Pt will present WNLs on FGA to decrease fall risk and risk of injurying herself again. LTG Duration 8 weeks 1 Impairment SCAT 5 Symptom List score 49/ 132 Impairment Symptoms worse with physical activity and mental activity Photograph Developer Goal (LTG) Pt will present with a SCAT 5 symptom score of no more than 20/132 to reflect improved pain and quality of life. 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 Pt reports ongoing intermittent dizziness, tiredness, neck pain, word- finding issues, and increased stress with managing the paperwork regarding her 's . BP is high on assessment and orthostatics are negative. BP and HR in LUE : supine 159/95, 72; standing 163/104, 81; standing 1' 161/ 108, 80. PT will monitor BP during treatment sessions and PT asked pt to communicate with doctor's office about BP as well as to check her own BP at home. During assessment, pt states that her sleeping position is on her stomach with her head rotated to the right and her left arm straight and up under her left jaw and head with pillow between. PT believes that this sleeping position is the primary cause of her left sided symptoms. PT can be very helpful for flexibility, manual and exercise work and it is imperative that pt change her sleeping position for any PT intervention to make lasting gains. Pt is very receptive to education today. She presents with good UE strength, some cervical range limitations and postural changes. Physical Therapy Plan Frequency and Duration Frequency of Treatment 2x/Week Duration of treatment (weeks) 8 Plan of Care Start Date 03/23/24 Plan of Care End Date 05/24/24 Therapeutic Interventions Therapeutic Interventions Balance Training,Canalithic Repositioning,Home Exercise Program,Joint Mobilizations, Manual Therapy,Neuromuscular Re-education,Patient/Caregiver Education,Self-Care/Home Management,Soft Tissue Mobilization,Taping, Therapeutic Activities, Therapeutic Exercises, Vestibular Rehabilitation Modalities Cold Pack/Ice Massage,Hot Packs,Ultrasound Next Visit Focus/Plan Next Note Type Treatment Note Next Visit Plan Monitor BP Buteyko breathing with primary PT Gentle progression of posture, flexibility, core, balance exercises, gentle manual work Consider VOMS and VOR testing with primary PT Plan of Care Dates Plan of Care Start Date 03/23/24 Plan of Care End Date 05/24/24 Electronically Signed by: Trudy Martinez PT 03/23/24 [id number] If you are in agreement with this Plan of Care, please return a signed and dated copy. I have reviewed this Plan of Care and certify that the skilled therapy services above are required to meet the patient?s needs. Physician Signature Date Printed Name and Credentials Clinical Instructor Signature Printed Name and Credentials
--- NOTE | 2024-04-05 09:40 | PT.OTN ---
Current Diagnoses Other chronic pain (04/05/24) Other spondylosis, cervical region (04/05/24) Cervicalgia (04/05/24) Pain in thoracic spine (04/05/24) Concussion with loss of consciousness status unknown, sequela (04/05/24) Diffuse traumatic brain injury with loss of consciousness of unspecified duration, sequela (04/05/24) Physical Therapy Treatment Note PT-OP-A Visit Information Start: 03/23/24 08:51 Freq: Status: Active Protocol: Document 04/05/24 08:58 MB (Rec: 04/05/24 09:40 MB [id number]) Out-Patient Physical Therapy Visit Information Visit Information Visit Type Treatment Note Visit Note 11/08 before progress note or by 04/22/24 Visit Start Time 08:58 Visit Stop Time 09:38 Visit Number 2 Number of LEAN COACH Visits 0 Evaluation Information Evaluation Date 03/23/24 Precautions Precautions Pt with fall and hit head in December 2023 and was found to have several sites of subarachnoid hemorrhage can be seen, including involving the superior left frontal lobe and within the right basal cistern. Neck diagnostics: [id number]-[id number] multilevel degenerative changes of the cervical spine with straightening of the normal cervical lordosis. Gentle manual work only. OP. Allergic to tape in the past. High BP. PT-OP-B Current Condition Start: 03/23/24 08:51 Freq: Status: Active Protocol: Document 03/23/24 09:41 MB (Rec: 03/23/24 10:13 MB [id number]) Current Condition History of Current Condition Onset Date 01/22/24 Current Complaints Neck pain, thoracic pain History of Current Condition Pt with fall and hit head in December 2023 and was found to have several sites of subarachnoid hemorrhage can be seen, including involving the superior left frontal lobe and within the right basal cistern. Neck diagnostics were negative. Pt reports R CHAD several years ago and it did not heal quickly. She did not go for PT . 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 Pt reports a history of falls as well when her fell on her. She had right arm pain at that time. She also bruised her left posterior shoulder. Given fall and head injury with CT findings, PT provides concussion intake form and pt reports: vision changes (not new), ear pressure, pt reports infection in one of her root canals in left lower jaw, pt is taking antibiotics for her eyes, forgetting words since hemorrage, allergies, dizziness with getting up and down, eye pressure changes d/t eye infections, occ headaches . Pt denies: nausea, numbness and tingling, weakness, hearing change, troube swallowing, seizures, roaring/ ringing in the ears, fogginess , chiropractor treatment. Pt has trouble finding words since hemorrhage. She is having a lot of stress filling out paperwork after her 's . Pt just reports the one fall when her sheets wrapped around her when getting up at night and that is when she had brain injury. 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 Pt sleeps on her stomach with her left arm straight and tucked up under her left jaw/ neck with pillow between straight arm and head. Prior Treatments and Tests CT head 01/23/24: There is acute intracranial hemorrhage seen. The volume of the hemorrhage is minimally less on the current study than on the prior, which is suggestive of a slight amount of interval resorption/ redistribution of the hemorrhage. No new areas of hemorrhage can be seen. There is a significant right parietal scalp hematoma seen. Treatment Goals Patient/Caregiver Goals To decrease pain in neck. PT-OP-C Subjective Start: 03/23/24 08:51 Freq: Status: Active Protocol: Document 04/05/24 08:58 MB (Rec: 04/05/24 09:40 MB [id number]) OP-PT Subjective Patient Comments Patient Comments Pt has ordered another pillow and will work on her sleeping position. PT-OP-J Posture/Palpation/Skin Start: 03/23/24 08:51 Freq: Status: Active Protocol: Document 03/23/24 09:41 MB (Rec: 03/23/24 13:15 MB [id number]) Posture Evaluation Comments Posture Comments Forward head with head resting in 10 deg extension, left shoulder rounded more anteriorly than the right, Dowager's hump and then decreased thoracic kyphosis, right scapula mildly lower than the left and left iliac crest mildly higher than the right. PT-OP-K Range of Motion Start: 03/23/24 08:51 Freq: Status: Active Protocol: Document 03/23/24 09:41 MB (Rec: 03/23/24 13:15 MB [id number]) Cervical Spine Range of Motion Cervical Spine Active Testing Position Standing Flexion 30 Extension 20 Rotation Left 55 Rotation Right 65 Lateral Flexion Left 11 Lateral Flexion Right 11 Comments Head rests in 10 deg extension Shoulder Goniometric Range of Motion Shoulder Bilateral Shoulder ROM WFL Yes Testing Position Standing PT-OP-M Strength Start: 03/23/24 08:51 Freq: Status: Active Protocol: Document 03/23/24 09:41 MB (Rec: 03/23/24 13:15 MB [id number]) Shoulder Strength Shoulder Manual Muscle Testing Bilateral Flexion 5 Normal Abduction (C5) 5 Normal External Rotation 5 Normal Internal Rotation 5 Normal Elbow/Forearm Strength Elbow and Forearm Manual Muscle Testing Bilateral Flexion (C6) 5 Normal Extension (C7) 5 Normal PT-OP-Q Treatments Start: 03/23/24 08:51 Freq: Status: Active Protocol: Document 04/05/24 08:58 MB (Rec: 04/05/24 09:40 MB [id number]) Therapeutic Exercises Supine Exercises Buteyko breathing Comments Ed in nasal breathing and performed reps, see assessment today. Pt hook lyi Neuro Re-Education Treatment Movement Re-Education Movement Re-education Activities Diaphragm breathing added progressively during Buteyko breathing to improve parasympathetic response and relaxation and pt performs well with book on stomach and legs up PT-OP-T Assessment and Plan Start: 03/23/24 08:51 Freq: Status: Active Protocol: Document 04/05/24 08:58 MB (Rec: 04/05/24 09:40 MB [id number]) Physical Therapy Assessment Rehab Potential Rehabilitation Potential Fair Evaluation Complexity Number of Personal Factors/Comorbidities 1-2 Number of Body Systems Impaired 3 Clinical Presentation at Evaluation Evolving Impairments Impairments Activity Tolerance,Balance, Pain,Posture,ROM,Soft Tissue Mobility,Vestibular Goals 4 Impairment Poor sleeping position likely primary instigator of pain Log Hauler Goal (LTG) Pt will report sleeping in proper sleeping position for cervical and spinal alignment to decrease pain and tension in neck and back. LTG Duration 8 weeks 3 Impairment Lack of HEP Log Hauler Goal (LTG) Pt will perform progressive HEP with I including breathing , postural, gentle flexibility , core, balance and VOR exercises to improve balance and pain. LTG Duration 8 weeks 2 Impairment History of falls and ICH Log Hauler Goal (LTG) Pt will present WNLs on FGA to decrease fall risk and risk of injurying herself again. LTG Duration 8 weeks 1 Impairment SCAT 5 Symptom List score 49/ 132 Impairment Symptoms worse with physical activity and mental activity Shelter Goal (LTG) Pt will present with a SCAT 5 symptom score of no more than 20/132 to reflect improved pain and quality of life. LTG Duration 8 weeks Assessment Summary Assessment BP and HR LUE in supine before treatment: 137/88, 67. Progressive diaphragm breathing with Buteyko breathing today. Pt with thick acrylic nails. HR and O2 sats before Buteyko: 65 BPM and 96 %. 1st rep: PT cues a 10 sec hold and O2 sats 99% and HR 69 BPM. 2nd rep: 22 sec, O2 sats 99% and HR 75 BPM; 3rd rep: 25 sec, 99%, 75 BPM. Pt's O2 sats and HR are better during controlled pause reps and are grossly 98-99% and 63-67 BPM. 4th rep: 27 sec, 99%, 75 BPM; 5th rep: 21 sec, 99%, 77 BPM; 6th rep: 39 sec, 99%, 77 BPM. BP LUE after exercises in supine: 147/95, 64. Once again , legs are up in supine for about 40 minutes. Next treatment, initiate gentle manual work cervical, thoracic and left intrascapular and shoulder areas next treatment date and initiate a thoracic exercise. Physical Therapy Plan Frequency and Duration Frequency of Treatment 2x/Week Duration of treatment (weeks) 8 Plan of Care Start Date 03/23/24 Plan of Care End Date 05/24/24 Therapeutic Interventions Therapeutic Interventions Balance Training,Canalithic Repositioning,Home Exercise Program,Joint Mobilizations, Manual Therapy,Neuromuscular Re-education,Patient/Caregiver Education,Self-Care/Home Management,Soft Tissue Mobilization,Taping, Therapeutic Activities, Therapeutic Exercises, Vestibular Rehabilitation Modalities Cold Pack/Ice Massage,Hot Packs,Ultrasound Next Visit Focus/Plan Next Note Type Treatment Note Next Visit Plan Monitor BP Gentle manual work and add gentle thoracic exercise like open book or another gentle stretch for thoracic, cervical spine, scapular retraction Consider pelvic realignment exercises Gentle progression of posture, flexibility, core, balance exercises, gentle manual work Consider VOMS and VOR testing with primary PT
--- NOTE | 2024-04-14 10:35 | PT.OTN ---
Current Diagnoses Other chronic pain (04/14/24) Other spondylosis, cervical region (04/14/24) Cervicalgia (04/14/24) Pain in thoracic spine (04/14/24) Concussion with loss of consciousness status unknown, sequela (04/14/24) Diffuse traumatic brain injury with loss of consciousness of unspecified duration, sequela (04/14/24) Physical Therapy Treatment Note PT-OP-A Visit Information Start: 03/23/24 08:51 Freq: Status: Active Protocol: Document 04/14/24 09:48 MB (Rec: 04/14/24 10:35 MB [id number]) Out-Patient Physical Therapy Visit Information Visit Information Visit Type Treatment Note Visit Note 12/06 before progress note or by 04/22/24 Visit Start Time 09:48 Visit Stop Time 10:28 Visit Number 3 Number of PORTER USED CAR LOT Visits 0 Evaluation Information Evaluation Date 03/23/24 Precautions Precautions High BP, con't to monitor. Pt with fall and hit head in December 2023 and was found to have several sites of subarachnoid hemorrhage can be seen, including involving the superior left frontal lobe and within the right basal cistern. Neck diagnostics: Emeu-wb-gayiagyf multilevel degenerative changes of the cervical spine with straightening of the normal cervical lordosis. Gentle manual work only. OP. Allergic to tape in the past. PT-OP-B Current Condition Start: 03/23/24 08:51 Freq: Status: Active Protocol: Document 03/23/24 09:41 MB (Rec: 03/23/24 10:13 MB [id number]) Current Condition History of Current Condition Onset Date 01/22/24 Current Complaints Neck pain, thoracic pain History of Current Condition Pt with fall and hit head in December 2023 and was found to have several sites of subarachnoid hemorrhage can be seen, including involving the superior left frontal lobe and within the right basal cistern. Neck diagnostics were negative. Pt reports R CHAD several years ago and it did not heal quickly. She did not go for PT . 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 Pt reports a history of falls as well when her fell on her. She had right arm pain at that time. She also bruised her left posterior shoulder. Given fall and head injury with CT findings, PT provides concussion intake form and pt reports: vision changes (not new), ear pressure, pt reports infection in one of her root canals in left lower jaw, pt is taking antibiotics for her eyes, forgetting words since hemorrage, allergies, dizziness with getting up and down, eye pressure changes d/t eye infections, occ headaches . Pt denies: nausea, numbness and tingling, weakness, hearing change, troube swallowing, seizures, roaring/ ringing in the ears, fogginess , chiropractor treatment. Pt has trouble finding words since hemorrhage. She is having a lot of stress filling out paperwork after her 's . Pt just reports the one fall when her sheets wrapped around her when getting up at night and that is when she had brain injury. 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 Pt sleeps on her stomach with her left arm straight and tucked up under her left jaw/ neck with pillow between straight arm and head. Prior Treatments and Tests CT head 01/23/24: There is acute intracranial hemorrhage seen. The volume of the hemorrhage is minimally less on the current study than on the prior, which is suggestive of a slight amount of interval resorption/ redistribution of the hemorrhage. No new areas of hemorrhage can be seen. There is a significant right parietal scalp hematoma seen. Treatment Goals Patient/Caregiver Goals To decrease pain in neck. PT-OP-C Subjective Start: 03/23/24 08:51 Freq: Status: Active Protocol: Document 04/14/24 09:48 MB (Rec: 04/14/24 10:35 MB [id number]) OP-PT Subjective Patient Comments Patient Comments Pt saw deboning team leader and BP has been very high. She is on a heart monitor total of two weeks and she has one more week. She has ongoing stress after 's and with checking BP and cardiac issues. PT-OP-J Posture/Palpation/Skin Start: 03/23/24 08:51 Freq: Status: Active Protocol: Document 03/23/24 09:41 MB (Rec: 03/23/24 13:15 MB [id number]) Posture Evaluation Comments Posture Comments Forward head with head resting in 10 deg extension, left shoulder rounded more anteriorly than the right, Dowager's hump and then decreased thoracic kyphosis, right scapula mildly lower than the left and left iliac crest mildly higher than the right. PT-OP-K Range of Motion Start: 03/23/24 08:51 Freq: Status: Active Protocol: Document 03/23/24 09:41 MB (Rec: 03/23/24 13:15 MB [id number]) Cervical Spine Range of Motion Cervical Spine Active Testing Position Standing Flexion 30 Extension 20 Rotation Left 55 Rotation Right 65 Lateral Flexion Left 11 Lateral Flexion Right 11 Comments Head rests in 10 deg extension Shoulder Goniometric Range of Motion Shoulder Bilateral Shoulder ROM WFL Yes Testing Position Standing PT-OP-M Strength Start: 03/23/24 08:51 Freq: Status: Active Protocol: Document 03/23/24 09:41 MB (Rec: 03/23/24 13:15 MB [id number]) Shoulder Strength Shoulder Manual Muscle Testing Bilateral Flexion 5 Normal Abduction (C5) 5 Normal External Rotation 5 Normal Internal Rotation 5 Normal Elbow/Forearm Strength Elbow and Forearm Manual Muscle Testing Bilateral Flexion (C6) 5 Normal Extension (C7) 5 Normal PT-OP-Q Treatments Start: 03/23/24 08:51 Freq: Status: Active Protocol: Document 04/14/24 09:48 MB (Rec: 04/14/24 10:35 MB [id number]) Manual Therapy Treatment Consent Patient gave verbal consent for manual Yes treatment Other Other Manual Treatments Pt hook lying with head and legs supported: grade II-III PA mobs cervical spine, B STM upper traps, B upper traps, B infraspinatus and more tension left infraspinatus, cervical paraspinals and more work on left in general including intrascapular muscles, grade I -II first rib mobs Neuro Re-Education Treatment Movement Re-Education Movement Re-education Activities Diaphragm breathing with nasal breathing to improve parasympathetic response and relaxation and pt performs well with hands on stomach and legs up today Self-Care/Home Management Treatment Education Other Education Ongoing encouragement about breathing to help stress and BP, can con't PT 1x/wk to help reduce appointment stress, ed in benefits of listening to nasal breathing relaxation with Smooth strainer tender, ed in risks of stroke with history of bleed and current high BP, ed in pacing self, resting and hydration PT-OP-T Assessment and Plan Start: 03/23/24 08:51 Freq: Status: Active Protocol: Document 04/14/24 09:48 MB (Rec: 04/14/24 10:35 MB [id number]) Physical Therapy Assessment Rehab Potential Rehabilitation Potential Fair Evaluation Complexity Number of Personal Factors/Comorbidities 1-2 Number of Body Systems Impaired 3 Clinical Presentation at Evaluation Evolving Impairments Impairments Activity Tolerance,Balance, Pain,Posture,ROM,Soft Tissue Mobility,Vestibular Goals 4 Impairment Poor sleeping position likely primary instigator of pain Gate Agent Goal (LTG) Pt will report sleeping in proper sleeping position for cervical and spinal alignment to decrease pain and tension in neck and back. LTG Duration 8 weeks 3 Impairment Lack of HEP Gate Agent Goal (LTG) Pt will perform progressive HEP with I including breathing , postural, gentle flexibility , core, balance and VOR exercises to improve balance and pain. LTG Duration 8 weeks 2 Impairment History of falls and ICH Gate Agent Goal (LTG) Pt will present WNLs on FGA to decrease fall risk and risk of injurying herself again. LTG Duration 8 weeks 1 Impairment SCAT 5 Symptom List score 49/ 132 Impairment Symptoms worse with physical activity and mental activity Prison Goal (LTG) Pt will present with a SCAT 5 symptom score of no more than 20/132 to reflect improved pain and quality of life. LTG Duration 8 weeks Assessment Summary Assessment [facility] 04/07/24: left shoulder with deformity with remote dislocation anterior GH joint and AC and GH degeneration. BP and HR in left UE today in supine: takes several times to read and this may possibly make it higher: 190/104, 80. Pt has appointment with deboning team leader and nsg to call her back. Pt con't with high stress working through 's and has trouble getting through breathing but is trying. She went for a walk. Pt will con't to require increased time and very slow progression with PT program. Reviewed nasal and diaphragm breathing today and initiated gentle manual work. Physical Therapy Plan Frequency and Duration Frequency of Treatment 2x/Week Duration of treatment (weeks) 8 Plan of Care Start Date 03/23/24 Plan of Care End Date 05/24/24 Therapeutic Interventions Therapeutic Interventions Balance Training,Canalithic Repositioning,Home Exercise Program,Joint Mobilizations, Manual Therapy,Neuromuscular Re-education,Patient/Caregiver Education,Self-Care/Home Management,Soft Tissue Mobilization,Taping, Therapeutic Activities, Therapeutic Exercises, Vestibular Rehabilitation Modalities Cold Pack/Ice Massage,Hot Packs,Ultrasound Next Visit Focus/Plan Next Note Type Treatment Note Next Visit Plan Monitor BP, pelvic alignment exercises for alignment, ongoing nasal and diaphragm breathing during treatment Gentle manual work and add gentle thoracic exercise like open book or another gentle stretch for thoracic, cervical spine, scapular retraction Gentle progression of posture, flexibility, core, balance exercises, gentle manual work Consider VOMS and VOR testing with primary PT
--- NOTE | 2024-04-16 12:42 | PT.OTN ---
Current Diagnoses Other chronic pain (04/16/24) Other spondylosis, cervical region (04/16/24) Cervicalgia (04/16/24) Pain in thoracic spine (04/16/24) Concussion with loss of consciousness status unknown, sequela (04/16/24) Diffuse traumatic brain injury with loss of consciousness of unspecified duration, sequela (04/16/24) Physical Therapy Treatment Note PT-OP-A Visit Information Start: 03/23/24 08:51 Freq: Status: Active Protocol: Document 04/16/24 08:07 AB (Rec: 04/16/24 12:42 AB [id number]) Out-Patient Physical Therapy Visit Information Visit Information Visit Type Treatment Note Visit Note 01/06 before progress note or by 04/22/24 Access Code: [email or web address] Visit Start Time 09:17 Visit Stop Time 10:32 Visit Number 4 Number of LIME BURNER Visits 1 Evaluation Information Evaluation Date 03/23/24 Precautions Precautions High BP, con't to monitor. Pt with fall and hit head in December 2023 and was found to have several sites of subarachnoid hemorrhage can be seen, including involving the superior left frontal lobe and within the right basal cistern. Neck diagnostics: Mmgh-ji-jjanplyc multilevel degenerative changes of the cervical spine with straightening of the normal cervical lordosis. Gentle manual work only. OP. Allergic to tape in the past. PT-OP-B Current Condition Start: 03/23/24 08:51 Freq: Status: Active Protocol: Document 03/23/24 09:41 MB (Rec: 03/23/24 10:13 MB [id number]) Current Condition History of Current Condition Onset Date 01/22/24 Current Complaints Neck pain, thoracic pain History of Current Condition Pt with fall and hit head in December 2023 and was found to have several sites of subarachnoid hemorrhage can be seen, including involving the superior left frontal lobe and within the right basal cistern. Neck diagnostics were negative. Pt reports R CHAD several years ago and it did not heal quickly. She did not go for PT . 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 Pt reports a history of falls as well when her fell on her. She had right arm pain at that time. She also bruised her left posterior shoulder. Given fall and head injury with CT findings, PT provides concussion intake form and pt reports: vision changes (not new), ear pressure, pt reports infection in one of her root canals in left lower jaw, pt is taking antibiotics for her eyes, forgetting words since hemorrage, allergies, dizziness with getting up and down, eye pressure changes d/t eye infections, occ headaches . Pt denies: nausea, numbness and tingling, weakness, hearing change, troube swallowing, seizures, roaring/ ringing in the ears, fogginess , chiropractor treatment. Pt has trouble finding words since hemorrhage. She is having a lot of stress filling out paperwork after her 's . Pt just reports the one fall when her sheets wrapped around her when getting up at night and that is when she had brain injury. 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 Pt sleeps on her stomach with her left arm straight and tucked up under her left jaw/ neck with pillow between straight arm and head. Prior Treatments and Tests CT head 01/23/24: There is acute intracranial hemorrhage seen. The volume of the hemorrhage is minimally less on the current study than on the prior, which is suggestive of a slight amount of interval resorption/ redistribution of the hemorrhage. No new areas of hemorrhage can be seen. There is a significant right parietal scalp hematoma seen. Treatment Goals Patient/Caregiver Goals To decrease pain in neck. PT-OP-C Subjective Start: 03/23/24 08:51 Freq: Status: Active Protocol: Document 04/16/24 08:07 AB (Rec: 04/16/24 12:42 AB [id number]) OP-PT Subjective Patient Comments Patient Comments PT into session with chart message from . Message recommends seeing orth for evidence of arthritis, bone spurs, Hill-Sachs deformity, Ortho michelle reach out to patient . Patient reports she was sore post massage previous session (gestured to UT area) BP seated left UE 159/97 HR 71 BP , PT comments this is not high and is about what BP was when she got up. PT-OP-J Posture/Palpation/Skin Start: 03/23/24 08:51 Freq: Status: Active Protocol: Document 03/23/24 09:41 MB (Rec: 03/23/24 13:15 MB [id number]) Posture Evaluation Comments Posture Comments Forward head with head resting in 10 deg extension, left shoulder rounded more anteriorly than the right, Dowager's hump and then decreased thoracic kyphosis, right scapula mildly lower than the left and left iliac crest mildly higher than the right. PT-OP-K Range of Motion Start: 03/23/24 08:51 Freq: Status: Active Protocol: Document 03/23/24 09:41 MB (Rec: 03/23/24 13:15 MB [id number]) Cervical Spine Range of Motion Cervical Spine Active Testing Position Standing Flexion 30 Extension 20 Rotation Left 55 Rotation Right 65 Lateral Flexion Left 11 Lateral Flexion Right 11 Comments Head rests in 10 deg extension Shoulder Goniometric Range of Motion Shoulder Bilateral Shoulder ROM WFL Yes Testing Position Standing PT-OP-M Strength Start: 03/23/24 08:51 Freq: Status: Active Protocol: Document 03/23/24 09:41 MB (Rec: 03/23/24 13:15 MB [id number]) Shoulder Strength Shoulder Manual Muscle Testing Bilateral Flexion 5 Normal Abduction (C5) 5 Normal External Rotation 5 Normal Internal Rotation 5 Normal Elbow/Forearm Strength Elbow and Forearm Manual Muscle Testing Bilateral Flexion (C6) 5 Normal Extension (C7) 5 Normal PT-OP-Q Treatments Start: 03/23/24 08:51 Freq: Status: Active Protocol: Document 04/16/24 08:07 AB (Rec: 04/16/24 12:42 AB [id number]) Therapeutic Exercises Supine Exercises Pelvic realignment ex Supine Exercise Name from hooklying Reps/Minutes 3 sec X 5 Comments ball squ, pelvic lift, press into bent knee CS rotation Supine Exercise Name on occipital float Side bilateral Reps/Minutes 2 min Comments verbal cues to perform in pain free range Sidelying Exercises open book Sidelying Exercise Name HEP Side bilateral Reps/Minutes X5 holding for 5 breaths each UE Comments Verbal and tactile cues Sitting Exercises breathing from diaphragm with UE's on pillows Sitting Exercise Name bilateral UE on pillows HEP Side bilateral Comments VC to expand core into pillows in inhale Manual Therapy Treatment Consent Patient gave verbal consent for manual Yes treatment Soft Tissue Mobilization Thoracic paraspinals Mobilization Type Sustained Pressure Intensity/Depth Superficial Body Position Sitting Comments Monitored for pain CS UT/levator scap Body Location Bilateral Mobilization Type Cross-Friction,Rolling Intensity/Depth Superficial Body Position Sitting Comments Monitored for pain PT-OP-T Assessment and Plan Start: 03/23/24 08:51 Freq: Status: Active Protocol: Document 04/16/24 08:07 AB (Rec: 04/16/24 12:42 AB [id number]) Physical Therapy Assessment Goals 4 Impairment Poor sleeping position likely primary instigator of pain Fdc Goal (LTG) Pt will report sleeping in proper sleeping position for cervical and spinal alignment to decrease pain and tension in neck and back. LTG Duration 8 weeks 3 Impairment Lack of HEP Fdc Goal (LTG) Pt will perform progressive HEP with I including breathing , postural, gentle flexibility , core, balance and VOR exercises to improve balance and pain. LTG Duration 8 weeks 2 Impairment History of falls and ICH Fdc Goal (LTG) Pt will present WNLs on FGA to decrease fall risk and risk of injurying herself again. LTG Duration 8 weeks 1 Impairment SCAT 5 Symptom List score 49/ 132 Impairment Symptoms worse with physical activity and mental activity Fdc Goal (LTG) Pt will present with a SCAT 5 symptom score of no more than 20/132 to reflect improved pain and quality of life. LTG Duration 8 weeks Assessment Summary Assessment End of session BP supine left UE 126/86 HR 58.Patient comments she thinks then neck feels a little better end of session. Physical Therapy Plan Frequency and Duration Frequency of Treatment 2x/Week Duration of treatment (weeks) 8 Plan of Care Start Date 03/23/24 Plan of Care End Date 05/24/24 Next Visit Focus/Plan Next Note Type Treatment Note Next Visit Plan Monitor BP, review pelvic alignment exercises for alignment, ongoing nasal and diaphragm breathing during treatment Gentle manual work and assess foreign to open book on HEP or another gentle stretch for thoracic, cervical spine, scapular retraction Gentle progression of posture, flexibility, core, balance exercises, gentle manual work Consider VOMS and VOR testing with primary PT
--- NOTE | 2024-04-21 11:04 | PT.OTN ---
Current Diagnoses Other chronic pain (04/21/24) Other spondylosis, cervical region (04/21/24) Cervicalgia (04/21/24) Pain in thoracic spine (04/21/24) Concussion with loss of consciousness status unknown, sequela (04/21/24) Diffuse traumatic brain injury with loss of consciousness of unspecified duration, sequela (04/21/24) Physical Therapy Treatment Note PT-OP-A Visit Information Start: 03/23/24 08:51 Freq: Status: Active Protocol: Document 04/21/24 10:34 MB (Rec: 04/21/24 11:03 MB [id number]) Out-Patient Physical Therapy Visit Information Visit Information Visit Type Progress Note Visit Note Access Code: [email or web address] Visit Start Time 10:34 Visit Stop Time 11:14 Visit Number 5 Number of PRODUCTION CELL LEADER Visits 0 Evaluation Information Evaluation Date 03/23/24 Precautions Precautions High BP, con't to monitor. Pt with fall and hit head in December 2023 and was found to have several sites of subarachnoid hemorrhage can be seen, including involving the superior left frontal lobe and within the right basal cistern. Neck diagnostics: Qyxi-bn-lozzypgn multilevel degenerative changes of the cervical spine with straightening of the normal cervical lordosis. Gentle manual work only. OP. Allergic to tape in the past. PT-OP-B Current Condition Start: 03/23/24 08:51 Freq: Status: Active Protocol: Document 03/23/24 09:41 MB (Rec: 03/23/24 10:13 MB [id number]) Current Condition History of Current Condition Onset Date 01/22/24 Current Complaints Neck pain, thoracic pain History of Current Condition Pt with fall and hit head in December 2023 and was found to have several sites of subarachnoid hemorrhage can be seen, including involving the superior left frontal lobe and within the right basal cistern. Neck diagnostics were negative. Pt reports R CHAD several years ago and it did not heal quickly. She did not go for PT . 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 Pt reports a history of falls as well when her fell on her. She had right arm pain at that time. She also bruised her left posterior shoulder. Given fall and head injury with CT findings, PT provides concussion intake form and pt reports: vision changes (not new), ear pressure, pt reports infection in one of her root canals in left lower jaw, pt is taking antibiotics for her eyes, forgetting words since hemorrage, allergies, dizziness with getting up and down, eye pressure changes d/t eye infections, occ headaches . Pt denies: nausea, numbness and tingling, weakness, hearing change, troube swallowing, seizures, roaring/ ringing in the ears, fogginess , chiropractor treatment. Pt has trouble finding words since hemorrhage. She is having a lot of stress filling out paperwork after her 's . Pt just reports the one fall when her sheets wrapped around her when getting up at night and that is when she had brain injury. 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 Pt sleeps on her stomach with her left arm straight and tucked up under her left jaw/ neck with pillow between straight arm and head. Prior Treatments and Tests CT head 01/23/24: There is acute intracranial hemorrhage seen. The volume of the hemorrhage is minimally less on the current study than on the prior, which is suggestive of a slight amount of interval resorption/ redistribution of the hemorrhage. No new areas of hemorrhage can be seen. There is a significant right parietal scalp hematoma seen. Treatment Goals Patient/Caregiver Goals To decrease pain in neck. PT-OP-C Subjective Start: 03/23/24 08:51 Freq: Status: Active Protocol: Document 04/21/24 10:34 MB (Rec: 04/21/24 11:03 MB [id number]) OP-PT Subjective Patient Comments Patient Comments Pt con't to report high stress . 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 Pt's DARRELL with COVID with [facility]. Younger cousin also of COVID in the last couple of weeks. PT-OP-J Posture/Palpation/Skin Start: 03/23/24 08:51 Freq: Status: Active Protocol: Document 03/23/24 09:41 MB (Rec: 03/23/24 13:15 MB [id number]) Posture Evaluation Comments Posture Comments Forward head with head resting in 10 deg extension, left shoulder rounded more anteriorly than the right, Dowager's hump and then decreased thoracic kyphosis, right scapula mildly lower than the left and left iliac crest mildly higher than the right. PT-OP-K Range of Motion Start: 03/23/24 08:51 Freq: Status: Active Protocol: Document 03/23/24 09:41 MB (Rec: 03/23/24 13:15 MB [id number]) Cervical Spine Range of Motion Cervical Spine Active Testing Position Standing Flexion 30 Extension 20 Rotation Left 55 Rotation Right 65 Lateral Flexion Left 11 Lateral Flexion Right 11 Comments Head rests in 10 deg extension Shoulder Goniometric Range of Motion Shoulder Bilateral Shoulder ROM WFL Yes Testing Position Standing PT-OP-M Strength Start: 03/23/24 08:51 Freq: Status: Active Protocol: Document 03/23/24 09:41 MB (Rec: 03/23/24 13:15 MB [id number]) Shoulder Strength Shoulder Manual Muscle Testing Bilateral Flexion 5 Normal Abduction (C5) 5 Normal External Rotation 5 Normal Internal Rotation 5 Normal Elbow/Forearm Strength Elbow and Forearm Manual Muscle Testing Bilateral Flexion (C6) 5 Normal Extension (C7) 5 Normal PT-OP-Q Treatments Start: 03/23/24 08:51 Freq: Status: Active Protocol: Document 04/21/24 10:34 MB (Rec: 04/21/24 11:03 MB [id number]) Neuro Re-Education Treatment Movement Re-Education Movement Re-education Activities Diaphragm breathing with nasal breathing to improve parasympathetic response and relaxation and to attempt to decrease BP in sitting Self-Care/Home Management Treatment Education Other Education Extensive ed about ongoing high BP and risk for stroke if advance PT exercises and that pt con't to report stress and a lot of appointments. Ed pt to clear with PCP before massage therapy and will d/c PT today and pt asks PT to send note to PCP and Dr. Hidalgo, who she sees for cardiology. PT-OP-T Assessment and Plan Start: 03/23/24 08:51 Freq: Status: Active Protocol: Document 04/21/24 10:34 MB (Rec: 04/21/24 11:03 MB [id number]) Physical Therapy Assessment Rehab Potential Rehabilitation Potential Fair Evaluation Complexity Number of Personal Factors/Comorbidities 1-2 Number of Body Systems Impaired 3 Clinical Presentation at Evaluation Evolving Impairments Impairments Activity Tolerance,Balance, Pain,Posture,ROM,Soft Tissue Mobility,Vestibular Goals 4 Impairment Poor sleeping position likely primary instigator of pain Delivery Representative Goal (LTG) Pt will report sleeping in proper sleeping position for cervical and spinal alignment to decrease pain and tension in neck and back. LTG Duration 8 weeks 3 Impairment Lack of HEP Fpc Goal (LTG) Pt will perform progressive HEP with I including breathing , postural, gentle flexibility , core, balance and VOR exercises to improve balance and pain. LTG Duration 8 weeks 2 Impairment History of falls and ICH Fpc Goal (LTG) Pt will present WNLs on FGA to decrease fall risk and risk of injurying herself again. LTG Duration 8 weeks 1 Impairment SCAT 5 Symptom List score 49/ 132 Impairment Symptoms worse with physical activity and mental activity Fpc Goal (LTG) Pt will present with a SCAT 5 symptom score of no more than 20/132 to reflect improved pain and quality of life. LTG Duration 8 weeks Assessment Summary Assessment BP and HR LUE in sitting upon arrival: 232/119, 90. Second reading after not talking and several minutes of diaphragm breathin/101, 76. RUE after 10' sitting: did not read first attempt; second attempt 188/115, 80. With arm out on table in level of heart : 180/110, 82. Pt sees drum cleaner on . Given ongoing high BP, recommend pt go to ED and/or follow-up with PCP and distribution driver. Will d/c PT as PT cannot progress pt safely with ongoing high BP. Recommend massage therapy if cleared by PCP given high BP. PT will send this note to referring provider and Dr. Hidalgo per pt request. Physical Therapy Plan Frequency and Duration Frequency of Treatment 2x/Week Duration of treatment (weeks) 8 Plan of Care Start Date 03/23/24 Plan of Care End Date 05/24/24 Therapeutic Interventions Therapeutic Interventions Balance Training,Canalithic Repositioning,Home Exercise Program,Joint Mobilizations, Manual Therapy,Neuromuscular Re-education,Patient/Caregiver Education,Self-Care/Home Management,Soft Tissue Mobilization,Taping, Therapeutic Activities, Therapeutic Exercises, Vestibular Rehabilitation Modalities Cold Pack/Ice Massage,Hot Packs,Ultrasound
== END 2024-04-23 07:47 | disposition home or self-care (01) ==
LOC: PHYS 10:30
PROVIDERS: Family Provider Family Medicine; PCP Family Medicine; Referring Provider Family Medicine; Visit Provider Family Medicine
DX: M54.2 Cervicalgia (principal); M47.892 Other spondylosis, cervical region; M54.6 Pain in thoracic spine; G89.29 Other chronic pain; S06.0XAS Concussion with loss of consciousness status unknown, sequela; S06.2X9S Diffuse traumatic brain injury with loss of consciousness of unspecified duration, sequela
CPT/HCPCS: 97110; 97112; 97140; 97162; 97535

== ENCOUNTER → 2024-04-21 14:59 | Outpatient (CLI) | payer MEDICARE, OTHER, SELFPAY ==
[2021-01-04 22:39] VITALS: BMI 28.3
[2024-04-21 17:02] LABS: BUN Creatinine Ratio 11.3 (6-22); Blood Urea Nitrogen 7 mg/dL (7-17); Calcium 9.3 mg/dL (8.4-10.2); Carbon Dioxide 24 mmol/L (22-32); Chloride 111 mmol/L (98-107); Estimated Glomerular Filt Rate > 60 mL/min (>60); Glucose 81 mg/dL (80-110); HEMOLYSIS < 15 (0-50); Potassium 4.2 mmol/L (3.4-5.1); Sodium 141 mmol/L (137-145)
== END ==
PROVIDERS: Family Provider Family Medicine; PCP Family Medicine; Referring Provider Internal Medicine; Visit Provider Internal Medicine
DX: I10 Essential (primary) hypertension (principal)
CPT/HCPCS: 36415; 80048

== ENCOUNTER → 2024-05-07 11:29 | Outpatient (CLI) | payer MEDICARE, OTHER, SELFPAY ==
[2021-01-04 22:39] VITALS: BMI 28.3
--- NOTE | 2024-05-07 | DI.MG.S_ITS ---
BILATERAL DIGITAL SCREENING MAMMOGRAM 3D/2D WITH CAD: 05/07/2024 CLINICAL: Routine screening. Comparison is made to exams dated: 04/29/2023 mammogram, 04/06/2022 mammogram, and 03/31/2021 mammogram - [facility]. Both breasts are almost entirely fatty (category a/<25% glandular tissue). Current study was also evaluated with a Computer Aided Detection (CAD) system. There are benign calcifications in both breasts. No significant masses, calcifications, or other findings are seen in either breast. There has been no significant interval change. IMPRESSION: BENIGN There is no mammographic evidence of malignancy. A 1 year screening mammogram is recommended. Based on the Tyrer Cuzick model (a risk assessment model) the patient's lifetime risk is 1.8% and her 10 year risk is 1.2%. According to the ACR, ACS, and NCCN guidelines, an annual breast MRI exam along with mammogram is recommended if the patient's lifetime risk is 20% or greater. This exam was interpreted at Station ID: [id number]. NOTE: For mammograms, a report in lay terms will be sent to the patient. Approximately 15% of breast malignancies will not be visualized mammographically. In the management of a palpable breast mass, a negative mammogram must not discourage biopsy of a clinically suspicious lesion. Electronically Signed By: David kumar/kylie:05/07/2024 14:11:00 letter sent: Normal Exam ACR BI-RADS Category 2: Benign Finding(s) [id number]
== END ==
PROVIDERS: Family Provider Family Medicine; PCP Family Medicine; Referring Provider Family Medicine; Visit Provider Family Medicine
DX: Z12.31 Encounter for screening mammogram for malignant neoplasm of breast (principal); R92.313 Mammographic fatty tissue density, bilateral breasts
CPT/HCPCS: 77063; 77067

== ENCOUNTER → 2024-05-11 10:20 | Outpatient (CLI) | payer MEDICARE, OTHER, SELFPAY ==
[2021-01-04 22:39] VITALS: BMI 28.3
[2024-05-11 11:32] LABS: BUN Creatinine Ratio 14.3 (6-22); Blood Urea Nitrogen 9 mg/dL (7-17); Calcium 9.2 mg/dL (8.4-10.2); Carbon Dioxide 23 mmol/L (22-32); Chloride 106 mmol/L (98-107); Estimated Glomerular Filt Rate > 60 mL/min (>60); Glucose 108 mg/dL (80-110); HEMOLYSIS < 15 (0-50); Potassium 4.5 mmol/L (3.4-5.1); Sodium 135 mmol/L (137-145)
== END ==
PROVIDERS: Family Provider Family Medicine; PCP Family Medicine; Referring Provider Internal Medicine; Visit Provider Internal Medicine
DX: I10 Essential (primary) hypertension (principal)
CPT/HCPCS: 36415; 80048

== ENCOUNTER 2024-06-23 10:30 | Outpatient (RCR) | payer MEDICARE, OTHER, SELFPAY ==
[2021-01-04 22:39] VITALS: BMI 28.3
--- NOTE | 2024-06-14 12:47 | PT.OIE ---
Current Diagnoses Cervicalgia (06/14/24) Past Medical History (Last Reviewed 03/01/23 @ 09:58 by Almita Watson DO) Ankle pain (2015) Anxiety Cerebrovascular accident Chickenpox (1957) Colon polyps (2009) Depression Eating disorder Fractures GERD (gastroesophageal reflux disease) (2000) Heavy menstrual period (1979) Hemorrhoids (1980) Measles (1957) Mumps (1958) Numbness and tingling Painful menstrual periods PTSD (post-traumatic stress disorder) (2014) Seasonal allergies Substance abuse (2016) Past Surgical History (Last Reviewed 03/01/23 @ 09:58 by Almita Watson DO) History of back surgery (1989) History of Vaughn-en-Y gastric bypass (2008) History of surgery on arm (~2008) History of tonsillectomy and adenoidectomy (1959) Hx of cholecystectomy (~2012) Hx of hysterectomy (1981) Hx of knee surgery (2015) Hx of varicose veins (~1994) S/P epidural steroid injection (12/02/19) Visit Care Team Role Provider Type Pamela Sloan DO Family Provider Non-Staff Primary Care Provider Specialty: Family Practice Address: [address] [place] [address], [id number] Email: Seema Michele PA-C Attending Provider Non-Staff Referring Provider Specialty: General Surgery Address: [address] [place] [address], [id number] Email: Physical Therapy Initial Evaluation PT-OP-A Visit Information Start: 06/14/24 07:26 Freq: Status: Active Protocol: Document 06/14/24 08:17 MB (Rec: 06/14/24 08:49 MB [id number]) Out-Patient Physical Therapy Visit Information Visit Information Visit Type Initial Evaluation Visit Start Time 08:17 Visit Stop Time 08:57 Visit Number 1 Number of MEDIA LIAISON OFFICER Visits 0 Evaluation Information Evaluation Date 06/14/24 Precautions Precautions Recent fall, concussion, subarachnoid hemorrhages, history stroke, blood thinner use, allergy to tape in past and OP. Gentle manual work only. Eye issues. PT-OP-B Current Condition Start: 06/14/24 07:26 Freq: Status: Active Protocol: Document 06/14/24 08:17 MB (Rec: 06/14/24 08:49 MB [id number]) Current Condition History of Current Condition Onset Date One year ago when fell on her and then one fall since then Current Complaints Neck and B shoulder pain History of Current Condition Pt was assessed and performed a few PT appointments in 03/22. She was d/cd from PT d/t high BP and increased stress from managing paperwork after 's : she had many appointments she was trying to juggle. Pt states that she had the following testing at [facility]: B carotid US that was negative, B LE US that was negative, ECHO that was negative, she was put on Lisinopril and it dropped her BP but also made her have memory issues and nausea. Decreasing it helped. Her BP is managed per her report. Cardiac stress test was negative. All of these are pt's report only as PT cannot see notes from [facility]. She started taking more D3 and it originally made her nauseated but she is better with some tweaking. She lost 11 lbs due to nausea. She is still dealing with some paperwork issues after her 's . Pt arrives with sunglasses and states her eyes are getting worse and she thinks it might be d/t falls, brain bleed, concussion. She has rosacea in her eyes per recent doctor and her vision is worsening. She states that her eyes are open at night. The covers she was given do not work. She uses several different drops. Pt c/o neck and shoulder pain and she denies paresthesias in UEs. She is walking with hiking sticks outside to help with balance and she is worried about stressing shoulders and neck with these. She has worked on her sleeping position. PMH includes OP, right CHAD, stroke from clot left parietal area and behind eyes per report, recent fall in 01/20 and subarachnoid hemorrhages Treatment Goals Patient/Caregiver Goals To decrease pain PT-OP-C Subjective Start: 06/14/24 07:26 Freq: Status: Active Protocol: Document 06/14/24 08:17 MB (Rec: 06/14/24 08:49 MB [id number]) OP-PT Subjective Patient Comments Patient Comments See history of current condition Patient Questionnaires Neck Disability Index NDI Score 22/50 Neck Disability Index Impairment 40 to 59% Impaired (Score 20- 29) PT-OP-J Posture/Palpation/Skin Start: 06/14/24 07:26 Freq: Status: Active Protocol: Document 06/14/24 08:17 MB (Rec: 06/14/24 08:49 MB [id number]) Posture Evaluation Comments Posture Comments Standing posture in shoes: pt stands with left leg little behind right and she was told she had a leg length difference after hip replacement (R), forward head, Dowager's hump, left shoulder higher and more forward than left, B rounded shoulders, mild curvature changes and iliac crest mildly higher than the left and pt reports tail bone deformity, decreased lumbar lordosis, decreased thoracic kyphosis. PT-OP-K Range of Motion Start: 06/14/24 07:26 Freq: Status: Active Protocol: Document 06/14/24 08:17 MB (Rec: 06/14/24 08:49 MB [id number]) Cervical Spine Range of Motion Cervical Spine Active Testing Position Standing Flexion 30 Extension 20 Rotation Left 55 Rotation Right 60 Comments Pt rests with head in grossly 2-5 deg extension Shoulder Goniometric Range of Motion Shoulder ROM Limitations Comments B shoulder movement is WNLs PT-OP-M Strength Start: 06/14/24 07:26 Freq: Status: Active Protocol: Document 06/14/24 08:17 MB (Rec: 06/14/24 08:49 MB [id number]) Shoulder Strength Shoulder Manual Muscle Testing Bilateral Flexion 5 Normal Abduction (C5) 5 Normal External Rotation 5 Normal Internal Rotation 5 Normal Elbow/Forearm Strength Elbow and Forearm Manual Muscle Testing Bilateral Flexion (C6) 5 Normal Extension (C7) 5 Normal PT-OP-Q Treatments Start: 06/14/24 07:26 Freq: Status: Active Protocol: Document 06/14/24 08:17 MB (Rec: 06/14/24 12:46 MB [id number]) Self-Care/Home Management Treatment Education Other Education Orthostatic hypotension education and handouts about what may help and what may make symptoms worse, ed about proper hydration PT-OP-T Assessment and Plan Start: 06/14/24 07:26 Freq: Status: Active Protocol: Document 06/14/24 08:17 MB (Rec: 06/14/24 08:49 MB [id number]) Physical Therapy Assessment Rehab Potential Rehabilitation Potential Fair Evaluation Complexity Number of Personal Factors/Comorbidities 1-2 Number of Body Systems Impaired 3 Clinical Presentation at Evaluation Evolving Impairments Impairments Activity Tolerance,Balance, Functional Mobility,Gait,Pain, Posture,ROM,Soft Tissue Mobility,Transfers,Vestibular, Visual Motor Other Concerns Fall Risk Yes Goals 3 Impairment Lack of HEP Penitentiary Goal (LTG) Pt will perform progressive HEP with I including postural, alignment, breathing, flexibility, strengthening and balance exercises to improve symptoms and I. LTG Duration 8 weeks 2 Impairment History of recent falls Film Splicer Goal (LTG) Pt will perform WNLs on FGA to decrease fall risk. LTG Duration 8 weeks 1 Impairment NDI reflects 44% impairment Film Splicer Goal (LTG) Pt will present with NDI score reflecting no more than 10% impairment to improve quality of life and pain. LTG Duration 8 weeks Assessment Summary Assessment Pt is a 78 y/o female returning to PT after recent assessment and d/c d/t high BP and stress. Today, BP and HR in LUE: supine 167/97, 72; standing 105/71, 87; standing 1' 138/90, 84. PT provides education about high BP and orthostatic hypotension and will con't to monitor BP during PT course. Pt returns with ongoing c/o neck and shoulder pain, specifically on her left side. She presents with postural changes and decreased cervical ROM that is mildly painful. Pt is having severe trouble with her eyes and she wears sunglasses during treatment. PT is concerned about her driving. She reports her eyes stay opn at night and she is using various drops but her eyes hurt and her vision is worsening. In all of her diagnostics she reviews with PT, she does not report temporal arteries being checked. She is following up with an eye care provider soon , unsure what type of doctor. Initiate PT to improve pain, posture, range and balance but it appears that BP and eye issues are ongoing and may be limiting factors. Physical Therapy Plan Frequency and Duration Frequency of Treatment 1-2x/wk Duration of treatment (weeks) 8 Plan of Care Start Date 06/14/24 Plan of Care End Date 08/13/24 Therapeutic Interventions Therapeutic Interventions Balance Training,Canalithic Repositioning,Coordination Training,Gait Training,Home Exercise Program,Joint Mobilizations,Manual Therapy, Neuromuscular Re-education, Patient/Caregiver Education, Self-Care/Home Management, Sensory Integration,Soft Tissue Mobilization, Therapeutic Activities, Therapeutic Exercises, Vestibular Rehabilitation Modalities Cold Pack/Ice Massage,Hot Packs,Ultrasound Other Referrals/Consults Referrals/Consults Recommended PCP to review pt's eye concerns/reports, possible referral for specialist Next Visit Focus/Plan Next Note Type Treatment Note Next Visit Plan Review any exercises from previous PT course Monitor BP Gentle manual interventions
--- NOTE | 2024-06-16 07:33 | PT-OP ANOTE ---
Pt cancelled appointment today d/t sick. PT is concerned about pt's eyes given presentation and reports on the eval and will perform ocular exam next treatment.
--- NOTE | 2024-06-21 11:21 | PT.OTN ---
Current Diagnoses Cervicalgia (06/21/24) Physical Therapy Treatment Note PT-OP-A Visit Information Start: 06/14/24 07:26 Freq: Status: Active Protocol: Document 06/21/24 10:34 SP (Rec: 06/21/24 11:21 SP [id number]) Out-Patient Physical Therapy Visit Information Visit Information Visit Type Treatment Note Visit Note BP LUE pt personal automated cuff: supine 144/82 HR 80 standing (90* FF supported): 100/72 nonsymptomatic Visit Start Time 10:34 Visit Stop Time 11:21 Visit Number 2 Number of IT TECHNICAL ARCHITECT Visits 1 Evaluation Information Evaluation Date 06/14/24 Precautions Precautions Recent fall, concussion, subarachnoid hemorrhages, history stroke, blood thinner use, allergy to tape in past and OP. Gentle manual work only. Eye issues. PT-OP-B Current Condition Start: 06/14/24 07:26 Freq: Status: Active Protocol: Document 06/14/24 08:17 MB (Rec: 06/14/24 08:49 MB [id number]) Current Condition History of Current Condition Onset Date One year ago when fell on her and then one fall since then Current Complaints Neck and B shoulder pain History of Current Condition Pt was assessed and performed a few PT appointments in 03/22. She was d/cd from PT d/t high BP and increased stress from managing paperwork after 's : she had many appointments she was trying to juggle. Pt states that she had the following testing at [facility]: B carotid US that was negative, B LE US that was negative, ECHO that was negative, she was put on Lisinopril and it dropped her BP but also made her have memory issues and nausea. Decreasing it helped. Her BP is managed per her report. Cardiac stress test was negative. All of these are pt's report only as PT cannot see notes from [facility]. She started taking more D3 and it originally made her nauseated but she is better with some tweaking. She lost 11 lbs due to nausea. She is still dealing with some paperwork issues after her 's . Pt arrives with sunglasses and states her eyes are getting worse and she thinks it might be d/t falls, brain bleed, concussion. She has rosacea in her eyes per recent doctor and her vision is worsening. She states that her eyes are open at night. The covers she was given do not work. She uses several different drops. Pt c/o neck and shoulder pain and she denies paresthesias in UEs. She is walking with hiking sticks outside to help with balance and she is worried about stressing shoulders and neck with these. She has worked on her sleeping position. PMH includes OP, right CHAD, stroke from clot left parietal area and behind eyes per report, recent fall in 01/20 and subarachnoid hemorrhages Treatment Goals Patient/Caregiver Goals To decrease pain PT-OP-C Subjective Start: 06/14/24 07:26 Freq: Status: Active Protocol: Document 06/21/24 10:34 SP (Rec: 06/21/24 11:21 SP [id number]) OP-PT Subjective Patient Comments Patient Comments Pt reports looking at her personal BP cuff and noticing low BPs immediate standing. She has made adjustments: more lit motion sensor lights bed to bathroom approx 20 ft, might use non skid socks for safety. She thinks her pain is contributer to elevated BPs PT-OP-J Posture/Palpation/Skin Start: 06/14/24 07:26 Freq: Status: Active Protocol: Document 06/14/24 08:17 MB (Rec: 06/14/24 08:49 MB [id number]) Posture Evaluation Comments Posture Comments Standing posture in shoes: pt stands with left leg little behind right and she was told she had a leg length difference after hip replacement (R), forward head, Dowager's hump, left shoulder higher and more forward than left, B rounded shoulders, mild curvature changes and iliac crest mildly higher than the left and pt reports tail bone deformity, decreased lumbar lordosis, decreased thoracic kyphosis. PT-OP-K Range of Motion Start: 06/14/24 07:26 Freq: Status: Active Protocol: Document 06/14/24 08:17 MB (Rec: 06/14/24 08:49 MB [id number]) Cervical Spine Range of Motion Cervical Spine Active Testing Position Standing Flexion 30 Extension 20 Rotation Left 55 Rotation Right 60 Comments Pt rests with head in grossly 2-5 deg extension Shoulder Goniometric Range of Motion Shoulder ROM Limitations Comments B shoulder movement is WNLs PT-OP-M Strength Start: 06/14/24 07:26 Freq: Status: Active Protocol: Document 06/14/24 08:17 MB (Rec: 06/14/24 08:49 MB [id number]) Shoulder Strength Shoulder Manual Muscle Testing Bilateral Flexion 5 Normal Abduction (C5) 5 Normal External Rotation 5 Normal Internal Rotation 5 Normal Elbow/Forearm Strength Elbow and Forearm Manual Muscle Testing Bilateral Flexion (C6) 5 Normal Extension (C7) 5 Normal PT-OP-Q Treatments Start: 06/14/24 07:26 Freq: Status: Active Protocol: Document 06/21/24 10:34 SP (Rec: 06/21/24 11:21 SP [id number]) Therapeutic Exercises Other Exercises self STMs Other Exercise Name thercane & ball wall Manual Therapy Treatment Consent Patient gave verbal consent for manual Yes treatment Other Other Manual Treatments CS STMs: hookying LEs supported: SOR and MF glides lateral, light rolling technique to UT, LevScap & MWM /c head nods, pincer knead SCM . Pt states L >R tightness but she reports and IT TECHNICAL ARCHITECT palpates R>L tightness during manual. Pt reduction and muscle softening. Self-Care/Home Management Treatment Education Patient Education Pain Management,Safety Other Education -Discussed self STMs for neck tension reduction during manual: trialed with good feedback response performance and instruction use theracane MWM head nods & turns, ball wall trap in pillowcase. Also has self cane/massager, will bring in next tx for use with therapist if good alternative to use home (disucssed gentle pressure). -Discussed logging BPs /c positioning and if feeling symptomatic exactly what responses are for recall and giving providers data feedback for safety mobility. Verbalized understanding and in agreement. PT-OP-T Assessment and Plan Start: 06/14/24 07:26 Freq: Status: Active Protocol: Document 06/21/24 10:34 SP (Rec: 06/21/24 11:21 SP [id number]) Physical Therapy Assessment Goals 3 Impairment Lack of HEP Senior Care Goal (LTG) Pt will perform progressive HEP with I including postural, alignment, breathing, flexibility, strengthening and balance exercises to improve symptoms and I. LTG Duration 8 weeks 2 Impairment History of recent falls Court Administrator Goal (LTG) Pt will perform WNLs on FGA to decrease fall risk. LTG Duration 8 weeks 1 Impairment NDI reflects 44% impairment Impairment Symptoms worse with physical activity and mental activity Court Administrator Goal (LTG) Pt will present with NDI score reflecting no more than 10% impairment to improve quality of life and pain. LTG Duration 8 weeks Assessment Summary Assessment Pt orthostatic BPs taken at arrival, 44pt drop in systolic and 10 pt drop in diastolic with nonsymtomatic supine> standing. She has been looking back on her readings and is now aware her low readings in past have been considerably low in standing. Education for taking time for position change recovery safety. Good feedback response to gentle light manual today with reduction neck UT/LS and SCM tension. Instructed self, pincer knead SCM and use theracane and ball on wall, declined HOs for carryover home, understands how to use/perform. DIscussed and provided screen shot googled suboccipital release device for her to look up if wants how to do self home but stated show PT HO provided next tx for further additional advice before gets herself due to asking what can use self SOR benefits. Pt report neck felt alot better leaving end tx. Pt would benefit from scheduling more appts 1-2x/wk as written in PT POC. Physical Therapy Plan Frequency and Duration Frequency of Treatment 1-2x/wk Duration of treatment (weeks) 8 Plan of Care Start Date 06/14/24 Plan of Care End Date 08/13/24 Therapeutic Interventions Therapeutic Interventions Balance Training,Canalithic Repositioning,Coordination Training,Gait Training,Home Exercise Program,Joint Mobilizations,Manual Therapy, Neuromuscular Re-education, Patient/Caregiver Education, Self-Care/Home Management, Sensory Integration,Soft Tissue Mobilization, Therapeutic Activities, Therapeutic Exercises, Vestibular Rehabilitation Modalities Cold Pack/Ice Massage,Hot Packs,Ultrasound Other Referrals/Consults Referrals/Consults Recommended PCP to review pt's eye concerns/reports, possible referral for specialist Next Visit Focus/Plan Next Note Type Treatment Note Next Visit Plan CHeck added more appts. NExt: Look at HOs exercises from previous PT course Monitor orthostatic BPs keron standing. Continue gentle manual interventions.
--- NOTE | 2024-06-23 11:12 | PT.OTN ---
Current Diagnoses Cervicalgia (06/23/24) Physical Therapy Treatment Note PT-OP-A Visit Information Start: 06/14/24 07:26 Freq: Status: Active Protocol: Document 06/23/24 10:33 MB (Rec: 06/23/24 11:11 MB [id number]) Out-Patient Physical Therapy Visit Information Visit Information Visit Type Treatment Note Visit Start Time 10:33 Visit Stop Time 11:13 Visit Number 3 Number of CHEESE WEIGHER Visits 0 Evaluation Information Evaluation Date 06/14/24 Precautions Precautions Recent fall, concussion, subarachnoid hemorrhages, history stroke, blood thinner use, allergy to tape in past and OP. Gentle manual work only. Eye issues. PT-OP-B Current Condition Start: 06/14/24 07:26 Freq: Status: Active Protocol: Document 06/14/24 08:17 MB (Rec: 06/14/24 08:49 MB [id number]) Current Condition History of Current Condition Onset Date One year ago when fell on her and then one fall since then Current Complaints Neck and B shoulder pain History of Current Condition Pt was assessed and performed a few PT appointments in 03/22. She was d/cd from PT d/t high BP and increased stress from managing paperwork after 's : she had many appointments she was trying to juggle. Pt states that she had the following testing at [facility]: B carotid US that was negative, B LE US that was negative, ECHO that was negative, she was put on Lisinopril and it dropped her BP but also made her have memory issues and nausea. Decreasing it helped. Her BP is managed per her report. Cardiac stress test was negative. All of these are pt's report only as PT cannot see notes from [facility]. She started taking more D3 and it originally made her nauseated but she is better with some tweaking. She lost 11 lbs due to nausea. She is still dealing with some paperwork issues after her 's . Pt arrives with sunglasses and states her eyes are getting worse and she thinks it might be d/t falls, brain bleed, concussion. She has rosacea in her eyes per recent doctor and her vision is worsening. She states that her eyes are open at night. The covers she was given do not work. She uses several different drops. Pt c/o neck and shoulder pain and she denies paresthesias in UEs. She is walking with hiking sticks outside to help with balance and she is worried about stressing shoulders and neck with these. She has worked on her sleeping position. PMH includes OP, right CHAD, stroke from clot left parietal area and behind eyes per report, recent fall in 01/20 and subarachnoid hemorrhages Treatment Goals Patient/Caregiver Goals To decrease pain PT-OP-C Subjective Start: 06/14/24 07:26 Freq: Status: Active Protocol: Document 06/23/24 10:33 MB (Rec: 06/23/24 11:11 MB [id number]) OP-PT Subjective Patient Comments Patient Comments Pt states that her BP is dropping at home, too. She is taking two lisinopril a day ( which was backing off again). She went to her opthamologist and she checked her eyes, dilated her eyes, and her vision has gotten worse. She is 25/40. She is treated with prednisone and an eye drop everyday. She has extremely dry eyes. Her eyes feel better , though. Her eyes open with sleeping and she does not want to use an eye cover. Pt states that she bruised herself with self massager with ball. PT-OP-J Posture/Palpation/Skin Start: 06/14/24 07:26 Freq: Status: Active Protocol: Document 06/14/24 08:17 MB (Rec: 06/14/24 08:49 MB [id number]) Posture Evaluation Comments Posture Comments Standing posture in shoes: pt stands with left leg little behind right and she was told she had a leg length difference after hip replacement (R), forward head, Dowager's hump, left shoulder higher and more forward than left, B rounded shoulders, mild curvature changes and iliac crest mildly higher than the left and pt reports tail bone deformity, decreased lumbar lordosis, decreased thoracic kyphosis. PT-OP-K Range of Motion Start: 06/14/24 07:26 Freq: Status: Active Protocol: Document 06/14/24 08:17 MB (Rec: 06/14/24 08:49 MB [id number]) Cervical Spine Range of Motion Cervical Spine Active Testing Position Standing Flexion 30 Extension 20 Rotation Left 55 Rotation Right 60 Comments Pt rests with head in grossly 2-5 deg extension Shoulder Goniometric Range of Motion Shoulder ROM Limitations Comments B shoulder movement is WNLs PT-OP-M Strength Start: 06/14/24 07:26 Freq: Status: Active Protocol: Document 06/14/24 08:17 MB (Rec: 06/14/24 08:49 MB [id number]) Shoulder Strength Shoulder Manual Muscle Testing Bilateral Flexion 5 Normal Abduction (C5) 5 Normal External Rotation 5 Normal Internal Rotation 5 Normal Elbow/Forearm Strength Elbow and Forearm Manual Muscle Testing Bilateral Flexion (C6) 5 Normal Extension (C7) 5 Normal PT-OP-Q Treatments Start: 06/14/24 07:26 Freq: Status: Active Protocol: Document 06/23/24 10:33 MB (Rec: 06/23/24 11:11 MB [id number]) Therapeutic Exercises Supine Exercises Pelvic realignment exercises Side bilateral Equipment Used Blue ball Reps/Minutes 5 reps, 3 sec hold all exercises Comments Feet together ball squeeze iso , knee opp ankle iso, thigh press down iso Buteyko breathing Comments Knees bent and perform 2 reps, 30 sec hold each exercise Nasal breathing with diaphragm breathing Supine Exercise Name Can also performing in sitting , performed in hooklying today Comments Performed with Buteyko breathing today Sidelying Exercises Open book Side bilateral Comments Several reps and end-range stretch and breathing Self-Care/Home Management Treatment Education Other Education Pt to consider neck tension reduction wedge, ordered racquet ball and to get ball for pelvic realignment exercises, ed to keep an eye on BP and what to bring up to opthamologist PT-OP-T Assessment and Plan Start: 06/14/24 07:26 Freq: Status: Active Protocol: Document 06/23/24 10:33 MB (Rec: 06/23/24 11:11 MB [id number]) Physical Therapy Assessment Rehab Potential Rehabilitation Potential Fair Evaluation Complexity Number of Personal Factors/Comorbidities 1-2 Number of Body Systems Impaired 3 Clinical Presentation at Evaluation Evolving Impairments Impairments Activity Tolerance,Balance, Functional Mobility,Gait,Pain, Posture,ROM,Soft Tissue Mobility,Transfers,Vestibular, Visual Motor Other Concerns Fall Risk Yes Goals 3 Impairment Lack of HEP Litigation Claim Representative Goal (LTG) Pt will perform progressive HEP with I including postural, alignment, breathing, flexibility, strengthening and balance exercises to improve symptoms and I. LTG Duration 8 weeks 2 Impairment History of recent falls Halfway Goal (LTG) Pt will perform WNLs on FGA to decrease fall risk. LTG Duration 8 weeks 1 Impairment NDI reflects 44% impairment Litigation Claim Representative Goal (LTG) Pt will present with NDI score reflecting no more than 10% impairment to improve quality of life and pain. LTG Duration 8 weeks Assessment Summary Assessment Pt had eyes examined and will follow-up with opthamologist again in two weeks and so PT is less concerned about eye pressure during PT course. BP may con't to be an issue so will con't to monitor orthostatics. Pt con't to ask for a lot of manual work as it is helpful to her and so con' t to monitor this: will con't manual work but will also con' t to progress exercises and education. Ed pt last PT course that massage therapy may be a good option for her in the future. Physical Therapy Plan Frequency and Duration Frequency of Treatment 1-2x/wk Duration of treatment (weeks) 8 Plan of Care Start Date 06/14/24 Plan of Care End Date 08/13/24 Therapeutic Interventions Therapeutic Interventions Balance Training,Canalithic Repositioning,Coordination Training,Gait Training,Home Exercise Program,Joint Mobilizations,Manual Therapy, Neuromuscular Re-education, Patient/Caregiver Education, Self-Care/Home Management, Sensory Integration,Soft Tissue Mobilization, Therapeutic Activities, Therapeutic Exercises, Vestibular Rehabilitation Modalities Cold Pack/Ice Massage,Hot Packs,Ultrasound Next Visit Focus/Plan Next Note Type Treatment Note Next Visit Plan Monitor orthostatic BPs keron standing. Next treatment, consider gentle upper traps and levator stretches, anterior neck stretches Continue gentle manual interventions. Progress exercises and consider pool noodle for thoracic mobility and UE ROM, pect stretch, progression of TB strengthening over pool noodle Consider sitting thoracic rotation for mobility, consider balance exercises, gentle core progression in hook lying, eventually progress to standing intrascapular and shoulder ER strengthening with TB
--- NOTE | 2024-06-30 15:08 | PT-OP ANOTE ---
Pt no showed today 06/30/24 at 14:30 this afternoon. I contacted the pt and she reports she did not know she had an appointment today. She was notified of appointment on 07/02/24 at 13:45.
--- NOTE | 2024-07-01 07:55 | PT.OPDS ---
Current Diagnoses Cervicalgia (06/23/24) Visit Care Team Role Provider Type Pamela Sloan DO Family Provider Non-Staff Primary Care Provider Specialty: Family Practice Address: [address], [place], [address] Email: Seema Michele PA-C Attending Provider Non-Staff Referring Provider Specialty: General Surgery Address: [address] [facility], [place], [address] Email: Visit Number Visit Number 3 Discharge Summary PT-OP-B Current Condition Start: 06/14/24 07:26 Freq: Status: Active Protocol: Document 06/14/24 08:17 MB (Rec: 06/14/24 08:49 MB [id number]) Current Condition History of Current Condition Onset Date One year ago when fell on her and then one fall since then Current Complaints Neck and B shoulder pain History of Current Condition Pt was assessed and performed a few PT appointments in 03/22. She was d/cd from PT d/t high BP and increased stress from managing paperwork after 's : she had many appointments she was trying to juggle. Pt states that she had the following testing at [facility]: B carotid US that was negative, B LE US that was negative, ECHO that was negative, she was put on Lisinopril and it dropped her BP but also made her have memory issues and nausea. Decreasing it helped. Her BP is managed per her report. Cardiac stress test was negative. All of these are pt's report only as PT cannot see notes from [facility]. She started taking more D3 and it originally made her nauseated but she is better with some tweaking. She lost 11 lbs due to nausea. She is still dealing with some paperwork issues after her 's . Pt arrives with sunglasses and states her eyes are getting worse and she thinks it might be d/t falls, brain bleed, concussion. She has rosacea in her eyes per recent doctor and her vision is worsening. She states that her eyes are open at night. The covers she was given do not work. She uses several different drops. Pt c/o neck and shoulder pain and she denies paresthesias in UEs. She is walking with hiking sticks outside to help with balance and she is worried about stressing shoulders and neck with these. She has worked on her sleeping position. PMH includes OP, right CHAD, stroke from clot left parietal area and behind eyes per report, recent fall in 01/20 and subarachnoid hemorrhages Treatment Goals Patient/Caregiver Goals To decrease pain PT-OP-C Subjective Start: 06/14/24 07:26 Freq: Status: Active Protocol: Document 06/23/24 10:33 MB (Rec: 06/23/24 11:11 MB [id number]) OP-PT Subjective Patient Comments Patient Comments Pt states that her BP is dropping at home, too. She is taking two lisinopril a day ( which was backing off again). She went to her opthamologist and she checked her eyes, dilated her eyes, and her vision has gotten worse. She is 25/40. She is treated with prednisone and an eye drop everyday. She has extremely dry eyes. Her eyes feel better , though. Her eyes open with sleeping and she does not want to use an eye cover. Pt states that she bruised herself with self massager with ball. PT-OP-J Posture/Palpation/Skin Start: 06/14/24 07:26 Freq: Status: Active Protocol: Document 06/14/24 08:17 MB (Rec: 06/14/24 08:49 MB [id number]) Posture Evaluation Comments Posture Comments Standing posture in shoes: pt stands with left leg little behind right and she was told she had a leg length difference after hip replacement (R), forward head, Dowager's hump, left shoulder higher and more forward than left, B rounded shoulders, mild curvature changes and iliac crest mildly higher than the left and pt reports tail bone deformity, decreased lumbar lordosis, decreased thoracic kyphosis. PT-OP-K Range of Motion Start: 06/14/24 07:26 Freq: Status: Active Protocol: Document 06/14/24 08:17 MB (Rec: 06/14/24 08:49 MB [id number]) Cervical Spine Range of Motion Cervical Spine Active Testing Position Standing Flexion 30 Extension 20 Rotation Left 55 Rotation Right 60 Comments Pt rests with head in grossly 2-5 deg extension Shoulder Goniometric Range of Motion Shoulder ROM Limitations Comments B shoulder movement is WNLs PT-OP-M Strength Start: 06/14/24 07:26 Freq: Status: Active Protocol: Document 06/14/24 08:17 MB (Rec: 06/14/24 08:49 MB [id number]) Shoulder Strength Shoulder Manual Muscle Testing Bilateral Flexion 5 Normal Abduction (C5) 5 Normal External Rotation 5 Normal Internal Rotation 5 Normal Elbow/Forearm Strength Elbow and Forearm Manual Muscle Testing Bilateral Flexion (C6) 5 Normal Extension (C7) 5 Normal PT-OP-T Assessment and Plan Start: 06/14/24 07:26 Freq: Status: Active Protocol: Document 07/01/24 07:52 MB (Rec: 07/01/24 07:55 MB [id number]) Physical Therapy Assessment Assessment Summary Assessment TRANSPORTATION OFFICER communicates with this primary PT that pt was a no show to appointment last date and when TRANSPORTATION OFFICER called to check on pt, pt had some concerns about possibly no show fee despite having signed cancellation policy agreement with the front office on evaluation date (she was aware of this policy from treatment course over the summer as well). Pt cancelled rest of appointments. PT calls to check in this a.m. but pt unavailable. Will d/c PT.
== END 2024-07-01 14:01 | disposition home or self-care (01) ==
LOC: PHYS 10:30
PROVIDERS: Family Provider Family Medicine; PCP Family Medicine; Referring Provider Physician Assistant; Visit Provider Physician Assistant
DX: M54.2 Cervicalgia (principal)
CPT/HCPCS: 97110; 97140; 97162; 97535

== ENCOUNTER → 2024-07-09 08:52 | Outpatient (CLI) | payer MEDICARE, OTHER, SELFPAY ==
[2021-01-04 22:39] VITALS: BMI 28.3
[2024-07-11 10:11] LABS: Parathyroid Hormone Int 93 pg/mL (15-65)
== END ==
PROVIDERS: Family Provider Family Medicine; PCP Family Medicine; Referring Provider Internal Medicine Rheumatology; Visit Provider Internal Medicine Rheumatology
DX: M81.0 Age-related osteoporosis without current pathological fracture (principal)
CPT/HCPCS: 36415; 82306; 83970

== ENCOUNTER → 2025-03-23 08:41 | Outpatient (CLI) | payer MEDICARE, OTHER, SELFPAY ==
[2021-01-04 22:39] VITALS: BMI 28.3
--- NOTE | 2025-03-23 08:44 | DI.RAD.S_ITS ---
PROCEDURE: XR HAND RT MIN 3V INDICATIONS: PAIN IN RIGHT HAND TECHNIQUE: 3 views of the hand(s) acquired. COMPARISON: None. FINDINGS: Bones: Diffuse osteoporosis noted. No focal osseous abnormality Joints: Mild degeneration radiocarpal , STT and moderate 1st CMC degeneration. There is also mild degeneration all interphalangeal joints Soft tissues: Chondrocalcinosis seen in the TFCC IMPRESSION: Multilevel degeneration. Probable osteoporosis chondrocalcinosis TFCC Dictated by: Benja Bowling M.D. on 03/24/2025 at 12:35 Approved by: Benja Bowling M.D. on 03/24/2025 at 12:36
== END ==
LOC: RAD 08:43
PROVIDERS: Family Provider Family Medicine; PCP Family Medicine; Referring Provider Family Medicine; Visit Provider Family Medicine
DX: M18.11 Unilateral primary osteoarthritis of first carpometacarpal joint, right hand (principal); M19.041 Primary osteoarthritis, right hand; M79.641 Pain in right hand; M11.231 Other chondrocalcinosis, right wrist
CPT/HCPCS: 73130

== ENCOUNTER → 2025-04-13 08:23 | Outpatient (CLI) | payer MEDICARE, OTHER, SELFPAY ==
[2021-01-04 22:39] VITALS: BMI 28.3
[2025-04-13 09:03] LABS: Blood Urea Nitrogen 10 mg/dL (7-17); Calcium 9.5 mg/dL (8.4-10.2); Carbon Dioxide 26 mmol/L (22-32); Chloride 105 mmol/L (98-107); Estimated Glomerular Filt Rate > 60 mL/min (>60); Glucose 98 mg/dL (70-99); HEMOLYSIS < 15 (0-50); Potassium 4.1 mmol/L (3.4-5.1); Sodium 139 mmol/L (137-145)
[2025-04-13 09:16] LABS: Free T4, Direct Thyroxine 0.90 ng/dL (0.78-2.19)
[2025-04-13 09:30] LABS: Thyroid Stimulating Hormone 1.30 uIU/mL (0.47-4.68)
[2025-04-13 09:50] LABS: Vitamin B12 Reflex MMA if <400 292 pg/mL (239-931)
[2025-04-13 10:06] LABS: Folate > 20.0 ng/mL (2.76-20.0)
== END ==
PROVIDERS: Family Provider Family Medicine; PCP Family Medicine; Referring Provider Family Medicine; Visit Provider Family Medicine
DX: I10 Essential (primary) hypertension (principal); R03.0 Elevated blood-pressure reading, without diagnosis of hypertension; R71.0 Precipitous drop in hematocrit
CPT/HCPCS: 36415; 80048; 82607; 82746; 83921; 84439; 84443

== ENCOUNTER → 2025-06-16 08:37 | Outpatient (CLI) | payer MEDICARE, OTHER, SELFPAY ==
[2021-01-04 22:39] VITALS: BMI 28.3
--- NOTE | 2025-06-16 08:38 | DI.MG.S_ITS ---
MM screening mammo BI: 06/16/2025. BI-RADS: 1 CLINICAL: 70-year old female for bilateral screening mammogram. Tyrer-Cuzick lifetime risk of 1.8%. No personal or first-degree family history of breast cancer. PRIOR EXAMS 05/07/2024, 04/29/2023, 04/06/2022, 03/31/2021. MAMMOGRAPHY TECHNIQUE: 2D and 3D (tomosynthesis) digital mammographic views obtained, with additional images as needed for full coverage. Current study was also evaluated with a Computer Aided Detection (CAD) system. DENSITY A. The breasts are almost entirely fatty. MAMMOGRAPHY FINDINGS Bilateral: No suspicious mass, asymmetry, microcalcification, or other abnormality seen. IMPRESSION: * No evidence of malignancy. RECOMMENDATIONS Bilateral * Annual screening mammography. OVERALL ASSESSMENT CATEGORY BI-RADS-1: Negative. The [employer] recommends annual screening mammography beginning at age 40 for women with average risk of breast cancer. ELECTRONICALLY SIGNED: Heidi Soliz M.D. on 06/16/2025 at 12:23:57 PM PT Interpreting Station ID: [id number]
== END ==
PROVIDERS: Family Provider Family Medicine; PCP Family Medicine; Referring Provider Family Medicine; Visit Provider Family Medicine
DX: Z12.31 Encounter for screening mammogram for malignant neoplasm of breast (principal); R92.313 Mammographic fatty tissue density, bilateral breasts
CPT/HCPCS: 77063; 77067

== ENCOUNTER → 2025-06-29 12:06 | Outpatient (CLI) | payer MEDICARE, OTHER, SELFPAY ==
[2021-01-04 22:39] VITALS: BMI 28.3
[2025-06-29 12:55] LABS: Hematocrit 37.8 % (36-46); Hemoglobin 12.7 g/dL (12.0-16.0); Mean Corpuscular HGB Conc 33.7 % (30-36); Mean Corpuscular Hemoglobin 34.3 PG (26-34); Mean Corpuscular Volume 101.8 fL (80-100); Platelet Count 352 X10^3/uL (150-400)
[2025-06-29 13:19] LABS: Blood Urea Nitrogen 7 mg/dL (7-17); Calcium 9.1 mg/dL (8.4-10.2); Carbon Dioxide 24 mmol/L (22-32); Chloride 104 mmol/L (98-107); Estimated Glomerular Filt Rate > 60 mL/min (>60); Glucose 106 mg/dL (70-99); HEMOLYSIS < 15 (0-50); Potassium 4.3 mmol/L (3.4-5.1); Sodium 136 mmol/L (137-145)
== END ==
PROVIDERS: Family Provider Family Medicine; PCP Family Medicine; Referring Provider Orthopaedic Surgery; Visit Provider Orthopaedic Surgery
DX: Z01.818 Encounter for other preprocedural examination (principal)
CPT/HCPCS: 36415; 80048; 85027